=== PATIENT | male | born 1955 | race Caucasian/White ===

== ENCOUNTER → 2019-12-08 12:15 | Outpatient (BNVA) | payer MEDICAID, SELFPAY | PROVIDERS: Family Provider Family Medicine; PCP Family Medicine; Visit Provider Nurse Practitioner | DX: G89.29 Other chronic pain (principal); M54.12 Radiculopathy, cervical region; M47.812 Spondylosis without myelopathy or radiculopathy, cervical region; M51.9 Unspecified thoracic, thoracolumbar and lumbosacral intervertebral disc disorder; M47.816 Spondylosis without myelopathy or radiculopathy, lumbar region; M19.90 Unspecified osteoarthritis, unspecified site; F17.210 Nicotine dependence, cigarettes, uncomplicated; Z79.891 Long term (current) use of opiate analgesic | CPT/HCPCS: 99214 ==

== ENCOUNTER → 2020-02-12 12:48 | Outpatient (BNVA) | payer MEDICAID, SELFPAY | PROVIDERS: Family Provider Family Medicine; PCP Family Medicine; Visit Provider Nurse Practitioner | DX: G89.29 Other chronic pain (principal); M25.561 Pain in right knee; M25.562 Pain in left knee; M54.2 Cervicalgia; M54.5 Low back pain; F17.210 Nicotine dependence, cigarettes, uncomplicated; G47.00 Insomnia, unspecified; Z79.891 Long term (current) use of opiate analgesic; Z71.6 Tobacco abuse counseling | CPT/HCPCS: 99213 ==

== ENCOUNTER 2020-02-25 12:09 | Outpatient (CLI) | payer MEDICAID, SELFPAY ==
--- NOTE | 2020-02-25 12:19 | XR_ITS ---
WS: [id number] Chest 2 views, 02/25/2020 Clinical Data: Cough, copd, DYSPNEA Comparison: Portable chest, 06/09/2019. Findings: No nodules, masses or effusions are seen. The heart is normal. The pulmonary vascularity is not increased. No pneumonia or pneumothorax is seen. The aortic arch shows tortuosity. XR/XR chest 2V* [id number] Impression: Atherosclerosis.
== END 2020-02-25 12:10 | disposition home or self-care (01) ==
LOC: RADWPI 12:12
PROVIDERS: Family Provider Family Medicine; PCP Family Medicine; Visit Provider Nurse Practitioner Family
DX: J44.1 Chronic obstructive pulmonary disease with (acute) exacerbation (principal); I70.0 Atherosclerosis of aorta; R05 Cough; R06.00 Dyspnea, unspecified
CPT/HCPCS: 71046

== ENCOUNTER 2020-03-21 13:08 | Emergency (ER) | payer MEDICAID, SELFPAY | END 2020-03-21 13:34 | disposition left against medical advice (07) | LOC: ER 07-19 15:38 | PROVIDERS: Emergency Provider Emergency Medicine; PCP Family Medicine | DX: Z53.21 Procedure and treatment not carried out due to patient leaving prior to being seen by health care provider (principal) | CPT/HCPCS: 99281 ==

== ENCOUNTER 2020-03-21 13:18 | Outpatient (CLI) | payer MEDICAID, SELFPAY ==
--- NOTE | 2020-03-21 | USCV_ITS ---
Khoa Brewer Age: 64 Gender: M : 1955 Exam Date: 03/21/2020 13:35 Ordering Phys: Iwona Mcallister MD Technologist: Gilda Holly Exam Location: [facility] [place] Indication: DVT HISTORY: DVT. PROCEDURES: Venous duplex imaging was performed in only the right lower extremity. The following venous structures were evaluated: common femoral vein, profunda vein, proximal portion of the greater saphenous vein, superficial femoral vein, and the popliteal vein. In addition, the posterior tibial and peroneal trunk were evaluated. Serial compression, augmentation maneuvers, and spectral Doppler flow evaluation were performed. FINDINGS: Normal 2-D Doppler and augmentation and compressibility throughout the lower extremity venous structures. Additional imaging through the proximal calf veins also reveals no thrombus. Limited evaluation of the greater saphenous vein is patent with no thrombus.. CONCLUSIONS No evidence of right lower extremity DVT. Santo Evangelista MD (Electronically Signed) Final Date: 21 March 2020 15:37 Amended: 22 March 2020 11:26 C
== END 2020-03-21 13:19 | disposition home or self-care (01) ==
LOC: RAD 13:19
PROVIDERS: Family Provider Family Medicine; PCP Family Medicine; Visit Provider Family Medicine
DX: M79.604 Pain in right leg (principal)
CPT/HCPCS: 93971

== ENCOUNTER → 2020-06-01 13:26 | Outpatient (BNVA) | payer MEDICAID, SELFPAY | PROVIDERS: Family Provider Family Medicine; PCP Family Medicine; Visit Provider Anesthesiology | DX: G89.29 Other chronic pain (principal); M47.816 Spondylosis without myelopathy or radiculopathy, lumbar region; M51.9 Unspecified thoracic, thoracolumbar and lumbosacral intervertebral disc disorder; M47.812 Spondylosis without myelopathy or radiculopathy, cervical region; M54.12 Radiculopathy, cervical region; G47.00 Insomnia, unspecified; F17.210 Nicotine dependence, cigarettes, uncomplicated; Z79.891 Long term (current) use of opiate analgesic; Z71.6 Tobacco abuse counseling | CPT/HCPCS: 99214 ==

== ENCOUNTER → 2020-07-07 09:20 | Outpatient (BNVA) | payer MEDICAID, SELFPAY | PROVIDERS: Family Provider Family Medicine; PCP Family Medicine; Visit Provider Anesthesiology | DX: G89.29 Other chronic pain (principal); M25.561 Pain in right knee; M25.562 Pain in left knee; M19.90 Unspecified osteoarthritis, unspecified site; M54.12 Radiculopathy, cervical region; M51.9 Unspecified thoracic, thoracolumbar and lumbosacral intervertebral disc disorder; M47.816 Spondylosis without myelopathy or radiculopathy, lumbar region; M47.812 Spondylosis without myelopathy or radiculopathy, cervical region; F17.210 Nicotine dependence, cigarettes, uncomplicated; Z79.891 Long term (current) use of opiate analgesic; Z71.6 Tobacco abuse counseling | CPT/HCPCS: 99214 ==

== ENCOUNTER 2020-09-06 12:46 | Outpatient (CLI) | payer MEDICAID, SELFPAY ==
--- NOTE | 2020-09-06 13:30 | USCV_ITS ---
Khoa Brewer Age: 65 Gender: M : 1955 Exam Date: 09/06/2020 12:58 Ordering Phys: Brian Owens M.D ([email or web address]) Technologist: Exam Location: [facility] [place] Indication: CLAUDICATION RIGHT LEFT Brachial 100.00 mmHg Brachial 116.00 mmHg Pressure (mmHg) Waveform Pressure (mmHg) Waveform 130.00 ACCREDITED PHARMACY TECHNICIAN 128.00 130.00 DPA 152.00 1.12 Ankle/Brachial Index 1.31 93.00 Pre-Exercise Toe Pressure 117.00 0.80 Pre-Exercise Toe/Brachial Index 1.01 FINDINGS Resting ABIs bilaterally Resting TBIs bilaterally CONCLUSIONS No significant arterial obstruction, based on the above findings Dr Noe Neal MD [facility] (Electronically Signed) Final Date: 06 September 2020 20:49 S
== END 2020-09-06 12:47 | disposition home or self-care (01) ==
LOC: RAD 12:48
PROVIDERS: PCP Family Medicine; Visit Provider Internal Medicine
DX: I73.9 Peripheral vascular disease, unspecified (principal)
CPT/HCPCS: 93922

== ENCOUNTER → 2020-09-09 08:11 | Outpatient (BNVA) | payer MEDICAID, SELFPAY | PROVIDERS: Family Provider Family Medicine; PCP Family Medicine; Visit Provider Anesthesiology | DX: G89.29 Other chronic pain (principal); M47.816 Spondylosis without myelopathy or radiculopathy, lumbar region; M51.9 Unspecified thoracic, thoracolumbar and lumbosacral intervertebral disc disorder; M54.12 Radiculopathy, cervical region; M47.812 Spondylosis without myelopathy or radiculopathy, cervical region; F17.210 Nicotine dependence, cigarettes, uncomplicated; Z79.891 Long term (current) use of opiate analgesic | CPT/HCPCS: 99214 ==

== ENCOUNTER → 2020-11-09 12:31 | Outpatient (BNVA) | payer MEDICAID, SELFPAY | PROVIDERS: Family Provider Family Medicine; PCP Family Medicine; Visit Provider Anesthesiology | DX: G89.29 Other chronic pain (principal); M51.9 Unspecified thoracic, thoracolumbar and lumbosacral intervertebral disc disorder; M47.816 Spondylosis without myelopathy or radiculopathy, lumbar region; M54.12 Radiculopathy, cervical region; M47.812 Spondylosis without myelopathy or radiculopathy, cervical region; M19.90 Unspecified osteoarthritis, unspecified site; F17.210 Nicotine dependence, cigarettes, uncomplicated; Z79.891 Long term (current) use of opiate analgesic | CPT/HCPCS: 99214 ==

== ENCOUNTER 2020-12-09 09:32 | Outpatient (CLI) | payer MEDICAID, SELFPAY ==
--- NOTE | 2020-12-09 09:52 | XR_ITS ---
WS: [id number] Right knee, 3 views, 12/09/2020 Clinical Data: ACUTE RIGHT KNEE PAIN Comparison: Bilateral knees, 12/27/2014. Findings: There is lateral joint compartment narrowing with osteophytes of the lateral tibial plateau and later al femoral condyle. There is mild narrowing of the medial joint compartment. The posterior patella sh ows irregularity and posterior-superior spur. There are no fractures or dislocations. There is calcif ication in the wall of the superficial femoral artery and its distal branches. XR/XR knee RT 3V* [id number] Impression: Osteoarthritis of the right knee involving lateral joint compartment and datastage consultant ior patella with little change from 6 years ago.
== END 2020-12-09 09:33 | disposition home or self-care (01) ==
PROVIDERS: PCP Family Medicine; Visit Provider Family Medicine
DX: M17.11 Unilateral primary osteoarthritis, right knee (principal)
CPT/HCPCS: 73562

== ENCOUNTER → 2021-01-05 13:09 | Outpatient (BNVA) | payer MEDICAID, SELFPAY | PROVIDERS: PCP Family Medicine; Visit Provider Anesthesiology | DX: G89.29 Other chronic pain (principal); M47.816 Spondylosis without myelopathy or radiculopathy, lumbar region; M51.9 Unspecified thoracic, thoracolumbar and lumbosacral intervertebral disc disorder; M54.12 Radiculopathy, cervical region; M47.812 Spondylosis without myelopathy or radiculopathy, cervical region; G47.00 Insomnia, unspecified; F17.210 Nicotine dependence, cigarettes, uncomplicated; Z79.891 Long term (current) use of opiate analgesic | CPT/HCPCS: 99214 ==

== ENCOUNTER → 2021-03-07 12:44 | Outpatient (BNVA) | payer MEDICAID, SELFPAY | PROVIDERS: PCP Family Medicine; Visit Provider Anesthesiology | DX: G89.29 Other chronic pain (principal); M47.816 Spondylosis without myelopathy or radiculopathy, lumbar region; M51.9 Unspecified thoracic, thoracolumbar and lumbosacral intervertebral disc disorder; M54.12 Radiculopathy, cervical region; M47.812 Spondylosis without myelopathy or radiculopathy, cervical region; M19.90 Unspecified osteoarthritis, unspecified site; F17.210 Nicotine dependence, cigarettes, uncomplicated; Z79.891 Long term (current) use of opiate analgesic | CPT/HCPCS: 99214 ==

== ENCOUNTER 2021-03-08 03:20 | Emergency (ER) | payer MEDICAID, SELFPAY ==
[2021-03-08 03:21] VITALS: PULSE 107; RESP 22; TEMP 36.8; O2SAT 93; BMI 32.5
--- NOTE | 2021-03-08 03:25 | XR_ITS ---
WS: [id number] Portable AP upright chest, 03/08/2021 Clinical Data: cp Comparison: PA and lateral chest, 02/25/2020. Findings: No nodules, masses or effusions are seen. The heart is normal. The pulmonary vascularity is not increased. No pneumonia or pneumothorax is seen. The aortic arch and descending aorta show minim al tortuosity. The patient is rotated. There is osteoarthritis of the shoulder joints. XR/XR chest 1V portable [id number] Impression: Atherosclerosis.
--- NOTE | 2021-03-08 03:26 | ED_ITS ---
HPI - Chest Pain General: Chief Complaint: Chest Pain Stated Complaint: CP Time Seen by Provider: 03/08/21 03:24 Source: patient Mode of arrival: ambulatory Limitations: no limitations History of Present Illness: HPI narrative: 65-year-old male history of coronary disease had a stent placed roughly 4 to 5 years ago. States been having chest pain over the last 12 hours. States is been intermittent in nature nitro does seem to help. He states he had some diaphoresis with this pain. States that his pain currently is a 9 out of 10. Denies any worsening factors. Denies any shortness of breath at this time. Associated symptoms: Deny abdominal pain, dyspnea, fever(s), nausea or vomiting Review of Systems Const: Denies: fever(s), chills, body aches or change in appetite Eyes: Denies: blurry vision or eye discomfort ENMT: Denies: throat pain or dental pain Card: Reports: chest pain Resp: Denies: dyspnea GI: Denies: abdominal pain, nausea, vomiting or diarrhea : Denies: dysuria Musc: Denies: neck pain or back pain Skin/Breast: Denies: rash Neuro: Denies: headache(s) Psych: Denies: depression Aris/Lymph: Denies: easy bruising All/Imm: Denies: urticaria PFSH ED PFSH: Medical History CAD (coronary artery disease) Cervical radiculitis COPD (chronic obstructive pulmonary disease) Essential hypertension GERD (gastroesophageal reflux disease) History of myocardial infarction Hyperlipidemia Osteoarthritis hip and bilateral knees Sleep apnea 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 Surgical History H/O circumcision Presence of stent in left circumflex coronary artery S/P cholecystectomy S/P knee surgery right knee at age 21 Family History Mother Family history of premature coronary artery disease Sister Cancer Nasal Denies family history of Anesthesia complication Bleeding disorder Social History Smoking and tobacco status: current every day smoker cigarettes Packs smoked per day: 1.5 [ Other cigarette details: DOWN FROM 2.5 PPD ] Alcohol intake: current Alcohol intake frequency: few times a week Other details last alcohol use: 20 years ago Lives independently: Yes Marital status: Single Current occupational status: disabled History of recent travel: No Physical Exam Const: COMMON NORMALS: no acute distress, patient oriented x3 and healthy appearing HENMT: COMMON NORMALS: normocephalic and atraumatic HEAD & SCALP: normocephalic and atraumatic Eye: COMMON NORMALS: Equal, round and reactive pupils present and EOMs intact bilaterally PUPIL: Yes Equal, round and reactive pupils present Neck/C-Spine: COMMON NORMALS: full ROM and supple Chest: COMMONS NORMALS: normal inspection of the chest and normal palpation of entire chest wall Resp: COMMON NORMALS: normal respiratory effort, No retractions, No use of accessory muscles and clear to auscultation bilaterally AUSCULTATION: clear to auscultation bilaterally Cardio: COMMON NORMALS: regular rate, regular rhythm and No murmurs present (Cardio) RATE: regular rate RHYTHM: regular rhythm GI: COMMON NORMALS: Normal to inspection, nondistended, normoactive bowel sounds present, Soft to palpation, non-tender and no masses PALPATION: Yes S oft to palpation Extremity: COMMON NORMALS: normal to inspection and full ROM Neuro: COMMON NORMALS: patient oriented x3, moves all extremities and no focal motor deficits Psych: COMMON NORMALS: mental status grossly normal, Normal thought process present and cooperative THOUGHT PROCESS: Normal thought process present Skin: COMMON NORMALS: no rashes or lesions noted and no wounds GENERAL SKIN EXAM: no rashes or lesions noted Course Vital Signs: Vital signs: Vital Signs Temperature 98.2 F 03/08/21 03:21 Pulse Rate 96 03/08/21 05:19 Respiratory Rate 20 H 03/08/21 05:19 Blood Pressure 164/105 03/08/21 05:19 Pulse Oximetry 92 03/08/21 05:19 MDM - Chest Pain MDM Narrative: Medical decision making narrative: Ashley presents here with chest pain going on throughout the day. His initial troponin here is negative. He did have a mildly elevated D-dimer. Did try to perform a CT scan of his chest patient was unable to lay flat and he refused. Patient states that he feels much better and he would like to just go home. I try to talk him into being admitted or staying for 2-hour troponin. Patient still declined and states he is would just like to go home. I informed him that could not rule out a pulmonary embolism or acute coronary syndrome and he could get much worse and could even have a heart attack. Patient understands this and still decided to sign out AGAINST MEDICAL ADVICE. I informed if he has any worsening pain or changes mind he is return to ER immediately. He is follow-up his PCP is in 3 to 5 days. Lab Data: Labs: Lab Results 03/08/21 03/08/21 03/08/21 Range/Units 03:27 03:27 03:27 WBC 12.6 H (4.0-10.0) 10^3/ uL RBC 5.36 H (4.1-5.3) 10^6/u L Hgb 17.2 H (11.7-16.6) g/dL Hct 51.1 (42.0-52.0) % MCV 95.3 H (80-94) fL MCH 32.1 (28.0-34.0) pg MCHC 33.7 (30.0-36.0) g/dL RDW 13.2 (12.1-15.1) % Plt Count 241 (130-400) 10^3/c mm MPV 10.4 (7.4-10.4) fL Neut % (Auto) 75.0 % Lymph % (Auto) 16.2 % [place] % (Auto) 6.4 % Eos % (Auto) 1.1 % Baso % (Auto) 0.8 % Neut # (Auto) 9.46 H (1.8-7.7) 10^3/u L Lymph # (Auto) 2.0 (0.8-4.8) 10^3/u L [place] # (Auto) 0.8 (0.2-0.9) 10^3/u L Eos # (Auto) 0.1 (0.0-0.8) 10^3/u L Baso # (Auto) 0.1 (0.0-0.1) 10^3/u L Nucleated RBC % (a uto) 0 % Nucleated RBCs # 0.0 /100WBC PT 13.10 (12.1-14.9) SECO NDS INR 0.96 (0.8-1.2) D-Dimer 0.91 H (0-0.59) ug/mIFE U Sodium 140 (136-145) mmol/L Potassium 3.6 (3.5-5.1) mmol/L Chloride 97 L (98-107) mmol/L Carbon Dioxide 28 (22-29) mmol/L Anion Gap 18.6 (5-19) BUN 20 (8-23) mg/dL Creatinine 0.6 L (0.7-1.2) mg/dL GFR Calculation 135.6 H (90-130) mL/min Glucose 156 H (65-115) mg/dL Calculated Osmolal ity 296 H (285-295) mOsm/k g Calcium 9.5 (8.5-10.5) mg/dL Total Bilirubin 0.9 (0.15-1.2) mg/dL AST 25 (0-40) U/L ALT 24 (0-41) U/L Alkaline Phosphata se 138 H (40-130) IU/L Troponin T Baselin e (0-15) ng/L Total Protein 7.1 (6.6-8.7) g/dL Albumin 4.6 (3.5-5.2) g/dL Globulin 2.5 (1.3-4.6) g/dL 03/08/21 Range/Units 03:27 WBC (4.0-10.0) 10^3/ uL RBC (4.1-5.3) 10^6/u L Hgb (11.7-16.6) g/dL Hct (42.0-52.0) % MCV (80-94) fL MCH (28.0-34.0) pg MCHC (30.0-36.0) g/dL RDW (12.1-15.1) % Plt Count (130-400) 10^3/c mm MPV (7.4-10.4) fL Neut % (Auto) % Lymph % (Auto) % [place] % (Auto) % Eos % (Auto) % Baso % (Auto) % Neut # (Auto) (1.8-7.7) 10^3/u L Lymph # (Auto) (0.8-4.8) 10^3/u L [place] # (Auto) (0.2-0.9) 10^3/u L Eos # (Auto) (0.0-0.8) 10^3/u L Baso # (Auto) (0.0-0.1) 10^3/u L Nucleated RBC % (a uto) % Nucleated RBCs # /100WBC PT (12.1-14.9) SECO NDS INR (0.8-1.2) D-Dimer (0-0.59) ug/mIFE U Sodium (136-145) mmol/L Potassium (3.5-5.1) mmol/L Chloride (98-107) mmol/L Carbon Dioxide (22-29) mmol/L Anion Gap (5-19) BUN (8-23) mg/dL Creatinine (0.7-1.2) mg/dL GFR Calculation (90-130) mL/min Glucose (65-115) mg/dL Calculated Osmolal ity (285-295) mOsm/k g Calcium (8.5-10.5) mg/dL Total Bilirubin (0.15-1.2) mg/dL AST (0-40) U/L ALT (0-41) U/L Alkaline Phosphata se (40-130) IU/L Troponin T Baselin e 15 (0-15) ng/L Total Protein (6.6-8.7) g/dL Albumin (3.5-5.2) g/dL Globulin (1.3-4.6) g/dL Imaging Data^: CXR: Attestation: I personally reviewed and interpreted this imaging study as follows: My impression: no acute findings EKG Data^: EKG 1: Attestation: I personally reviewed and interpreted this EKG as follows: EKG interpretation date: 03/08/21 EKG interpretation time: 03:24 Interpretation: nsr hr [address] or t wave abnormalities pvc noted qrs 98 qtc 384 Discharge Plan Discharge Patient Disposition: Left Against Medical Advice Clinical Impression: Chest pain Qualifiers: Chest pain type: unspecified Qualified Code(s): R07.9 - Chest pain, unspecified Condition: Stable Prescriptions: No Action nitroglycerin [Nitrostat] 0.4 mg tablet, sublingual 0.4 mg SUBLINGUAL Q5M PRN (Reason: Angina) Qty: 25 RF: 4 lisinopril 10 mg tablet 10 mg PO ONCE Qty: 90 RF: 1 omeprazole 40 mg capsule,delayed release(DR/EC) 40 mg PO DAILY Qty: 90 RF: 3 trazodone 100 mg tablet 100 mg PO .QHS 30 Days Qty: 30 RF: 1 hydrocodone-acetaminophen 10-325 mg tablet 2 tab PO Q8H PRN (Reason: pain) 30 Days Qty: 180 RF: 0 hydrocodone-acetaminophen 10-325 mg tablet 2 tab PO Q8H PRN (Reason: pain) 30 Days Qty: 180 RF: 0 meloxicam [Mobic] 15 mg tablet 15 mg PO ONCE 30 Days Qty: 30 RF: 1 tizanidine 4 mg tablet 4 mg PO TID PRN (Reason: muscle spasticity) Qty: 90 RF: 1 tramadol 50 mg tablet 100 mg PO QID PRN (Reason: pain) 30 Days Qty: 240 RF: 1 clopidogrel 75 mg tablet 75 mg PO DAILY Qty: 90 RF: 3 Aspir-81 81 mg PO DAILY RF: 0 Referrals: Alfonso Jacques MD [Primary Care Provider] - Discharge Diet: Advance as tolerated Discharge Activity: Resume usual activity Patient Instructions: Chest Pain (ED) Coding Level of Care Code ED Photogrammetric Engineer for Pratibhag Fwd Exam Comprehensive
--- NOTE | 2021-03-08 03:30 | PC.NURSE ---
EKG taken and given to Dr. Wong
[2021-03-08] MEDS: aspirin 81 mg Chew Tablet 324 MG PO (03:32)
[2021-03-08] MEDS: ondansetron 2 mg/ML SDV 2 mL 4 MG IVP (03:32)
[2021-03-08 03:33] VITALS: RESP 22; O2SAT 94
[2021-03-08 03:33] LABS: Basophils # 0.1 10^3/uL (0.0-0.1); Basophils % 0.8 %; Eosinophils # 0.1 10^3/uL (0.0-0.8); Eosinophils % 1.1 %; Hematocrit 51.1 % (42.0-52.0); Hemoglobin 17.2 g/dL (11.7-16.6); Lymphocytes % 16.2 %; Mean Corpuscular HGB Conc 33.7 g/dL (30.0-36.0); Mean Corpuscular Hemoglobin 32.1 pg (28.0-34.0); Mean Corpuscular Volume 95.3 fL (80-94); Mean Platelet Volume 10.4 fL (7.4-10.4); Monocytes # 0.8 10^3/uL (0.2-0.9); Monocytes % 6.4 %; Neutrophils # 9.46 10^3/uL (1.8-7.7); Nucleated Red Blood Cells % 0 %; Platelet Count 241 10^3/cmm (130-400); Red Blood Count 5.36 10^6/uL (4.1-5.3); Red Cell Distribution Width 13.2 % (12.1-15.1); White Blood Count 12.6 10^3/uL (4.0-10.0)
[2021-03-08] MEDS: morphine 4 mg/mL SDV 1 mL IVP (03:33)
[2021-03-08 03:53] LABS: Alanine Aminotransferase 24 U/L (0-41); Albumin Level 4.6 g/dL (3.5-5.2); Alkaline Phosphatase 138 IU/L (40-130); Aspartate Amino Transferase 25 U/L (0-40); Blood Urea Nitrogen 20 mg/dL (8-23); Calcium 9.5 mg/dL (8.5-10.5); Carbon Dioxide 28 mmol/L (22-29); Chloride 97 mmol/L (98-107); Globulin 2.5 g/dL (1.3-4.6); Glomerular Filtration Rate 135.6 mL/min (90-130); Glucose 156 mg/dL (65-115); Osmolality Calculated 296 mOsm/kg (285-295); Sodium 140 mmol/L (136-145); Total Bilirubin 0.9 mg/dL (0.15-1.2); Total Protein 7.1 g/dL (6.6-8.7)
[2021-03-08 03:54] LABS: INR 0.96 (0.8-1.2)
[2021-03-08 03:55] LABS: Troponin(5th) Baseline 15 ng/L (0-15)
[2021-03-08 03:56] LABS: D Dimer 0.91 ug/mIFEU (0-0.59)
--- NOTE | 2021-03-08 03:59 | PC.NURSE ---
Patient placed on 2L oxygen via nasal cannula after morphine administration
[2021-03-08 04:00] VITALS: BP 162/101; PULSE 93; RESP 19; O2SAT 97
[2021-03-08 04:28] VITALS: BP 149/104; PULSE 94; RESP 17; O2SAT 95
[2021-03-08 04:32] LABS: Anion Gap 18.6 (5-19); Potassium 3.6 mmol/L (3.5-5.1)
[2021-03-08 04:37] VITALS: BP 113/89; PULSE 97; RESP 16; O2SAT 92
--- NOTE | 2021-03-08 05:06 | PC.NURSE ---
Patient refused CT multiple times, even after speaking to ED provider. Pt asked to AMA. Physician notified and spoke to patient before AMA paperwork was signed.
[2021-03-08 05:19] VITALS: BP 164/105; PULSE 96; RESP 20; O2SAT 92
== END 2021-03-08 05:19 | disposition left against medical advice (07) ==
PROVIDERS: Emergency Provider Emergency Medicine; PCP Family Medicine
DX: R07.9 Chest pain, unspecified (principal); Z53.21 Procedure and treatment not carried out due to patient leaving prior to being seen by health care provider; Z79.02 Long term (current) use of antithrombotics/antiplatelets; Z79.82 Long term (current) use of aspirin; I25.10 Atherosclerotic heart disease of native coronary artery without angina pectoris; J44.9 Chronic obstructive pulmonary disease, unspecified; I10 Essential (primary) hypertension; I25.2 Old myocardial infarction; E78.5 Hyperlipidemia, unspecified; F17.210 Nicotine dependence, cigarettes, uncomplicated
CPT/HCPCS: 71045; 80053; 84484; 85025; 85378; 85610; 96374; 96375; 99284; J2270; J2405

== ENCOUNTER → 2021-03-22 15:53 | Outpatient (BNVA) | payer MEDICAID, SELFPAY | PROVIDERS: PCP Family Medicine; Referring Provider Family Medicine; Visit Provider Specialist | DX: M17.0 Bilateral primary osteoarthritis of knee (principal); M76.891 Other specified enthesopathies of right lower limb, excluding foot | CPT/HCPCS: 73560; 73565 ==

== ENCOUNTER 2021-03-23 14:02 | Outpatient (CLI) | payer MEDICAID, SELFPAY ==
--- NOTE | 2021-03-23 14:30 | CT_ITS ---
WS: [id number] CT LUMBAR SPINE, noncontrast. HISTORY: M47.816 - Spondylosis without myelopathy or radiculopathy, lumbar region TECHNIQUE: Contiguous 2.5 mm axial imaging are performed. Sagittal and coronal reformats are submitte d and reviewed. All CT scans at [facility] use at least one of these dose optimization te chniques: automated exposure control; mA and/or kV adjustment per patient size (includes targeted exa ms where dose is matched to clinical indication); or iterative reconstruction. IV contrast: None DLP: 1910.9 mGycm COMPARISON: 12/09/2006 Normal lumbar alignment with no loss of disc space height or vertebral body height. Mild facet joint arthritis at L4-5 and L5-S1. No fracture. L1-2: Normal. L2-3: Moderate diffuse annular disc bulging encroaching upon the ventral thecal sac. There is mild ce ntral and subarticular recess narrowing. No focal disc protrusion. L3-4: Mild diffuse annular disc bulging with facet and ligamentum flavum arthritis. Mild encroachment upon the ventral thecal sac and subarticular recesses. L4-5: Diffuse annular disc bulging with a more focal protrusion in the LEFT foramen which is not cont acting the nerve root. Very mild narrowing of the lateral recesses, LEFT greater than RIGHT. L5-S1: Mild annular disc bulge and osteophytic ridging. Bilateral moderate facet joint arthritis. Inc reased degenerative air in the RIGHT facet joint. Bilateral SI joint arthritis. Incompletely visualized aortic aneurysm. Transverse diameter of 3.6 cm but the entire aorta is not vi sualized. There is additional mild aneurysmal dilatation of the proximal RIGHT common iliac artery up to 2.2 cm. These findings are new within the aorta since 2006. Nonobstructing calcification within e ach kidney. Moderate calcification at the origin of the renal arteries. CT/CT lumbar spine wo con* [id number] IMPRESSION: 1. Mild progression of degenerative disc disease and spondylosis throughout th e lumbar spine since 2006. No high-grade stenosis. 2. Moderate facet joint arthritis at L4-5 and L5-S1. 3. Mild central and subarticular recess stenosis at L2-3 and L3-4. 4. Small LEFT foraminal protrusion at L4-5 without contact on the nerve root. 5. Abdominal aortic aneurysm is incompletely visualized. Maximum diameter 3.6 cm but could be larger when the entire diameter is included. 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 Recommend follow -up CT angiogram abdominal aorta. Aneurysm is new since 2006.
== END 2021-03-23 14:03 | disposition home or self-care (01) ==
PROVIDERS: PCP Family Medicine; Visit Provider Anesthesiology
DX: M47.816 Spondylosis without myelopathy or radiculopathy, lumbar region (principal); I71.4 Abdominal aortic aneurysm, without rupture; M51.36 Other intervertebral disc degeneration, lumbar region; M47.817 Spondylosis without myelopathy or radiculopathy, lumbosacral region; M51.26 Other intervertebral disc displacement, lumbar region
CPT/HCPCS: 72131

== ENCOUNTER → 2021-04-25 14:38 | Outpatient (BNVA) | payer MEDICAID, SELFPAY | PROVIDERS: PCP Family Medicine; Visit Provider Orthopaedic Surgery | DX: M54.5 Low back pain (principal); G89.29 Other chronic pain; M85.88 Other specified disorders of bone density and structure, other site | CPT/HCPCS: 72110 ==

== ENCOUNTER → 2021-05-05 12:50 | Outpatient (BNVA) | payer MEDICAID, SELFPAY | PROVIDERS: PCP Family Medicine; Visit Provider Nurse Practitioner | DX: G89.29 Other chronic pain (principal); M47.816 Spondylosis without myelopathy or radiculopathy, lumbar region; M51.9 Unspecified thoracic, thoracolumbar and lumbosacral intervertebral disc disorder; M47.812 Spondylosis without myelopathy or radiculopathy, cervical region; M54.12 Radiculopathy, cervical region; M17.0 Bilateral primary osteoarthritis of knee; F17.210 Nicotine dependence, cigarettes, uncomplicated; Z79.891 Long term (current) use of opiate analgesic; Z71.6 Tobacco abuse counseling | CPT/HCPCS: 99214 ==

== ENCOUNTER → 2021-05-19 13:27 | Outpatient (BNVA) | payer MEDICAID, SELFPAY | PROVIDERS: PCP Family Medicine; Visit Provider Anesthesiology Pain Medicine | DX: M16.11 Unilateral primary osteoarthritis, right hip (principal); F17.210 Nicotine dependence, cigarettes, uncomplicated; Z79.891 Long term (current) use of opiate analgesic | CPT/HCPCS: 20610; 77002; J1030; J3490 ==

== ENCOUNTER → 2021-07-05 13:25 | Outpatient (BNVA) | payer MEDICAID, SELFPAY | PROVIDERS: PCP Family Medicine; Visit Provider Nurse Practitioner | DX: G89.29 Other chronic pain (principal); M47.816 Spondylosis without myelopathy or radiculopathy, lumbar region; M17.0 Bilateral primary osteoarthritis of knee; M16.0 Bilateral primary osteoarthritis of hip; M47.812 Spondylosis without myelopathy or radiculopathy, cervical region; F17.210 Nicotine dependence, cigarettes, uncomplicated; Z79.891 Long term (current) use of opiate analgesic | CPT/HCPCS: 99214 ==

== ENCOUNTER 2023-01-17 13:11 | Emergency (ER) | payer MEDICARE, MEDICAID, SELFPAY ==
[2023-01-17 13:30] VITALS: BP 112/68; PULSE 79; RESP 15; TEMP 36.4; O2SAT 97; BMI 28.5
--- NOTE | 2023-01-17 13:43 | XR_ITS ---
WS: [id number] Right femur and thigh, AP and lateral views, 01/17/2023 Clinical Data: pain Comparison: None. Findings: No fractures or dislocations are seen of the right femur. The fracture of the proximal right tibia an d the right fibular head are noted. There is severe osteoarthritis of the right hip. There is moderat e osteoarthritis of the right knee. Vascular calcification is noted. The soft tissues are normal. The soft tissues are normal. The visualized knee shows no abnormalities. XR/XR femur RT min 2V* [id number] Impression: 1. Negative for right femoral fracture. 2. Proximal right tibial and right fibular fractures.
--- NOTE | 2023-01-17 13:45 | XR_ITS ---
WS: [id number] Right ankle, 3 views, 01/17/2023 Clinical Data: pain Comparison: None. Findings: No fractures or dislocations are seen. The ankle mortise is normal. The talus and calcaneus are unrem arkable. No soft tissue swelling over the medial or lateral malleolus is seen. XR/XR ankle RT min 3V* [id number] Impression: Negative right ankle.
--- NOTE | 2023-01-17 13:45 | XR_ITS ---
WS: [id number] Right leg including the tibia and fibula, AP and lateral views, 01/17/2023 Clinical Data: pain Comparison: None. Findings: There is a comminuted fracture of the proximal right tibia without significant displacement. There is a fracture of the right fibular head. There is osteoarthritis of the right knee with medial and late ral joint compartment narrowing. There is vascular calcification. XR/XR tibia fibula RT 2V [id number] Impression: Fractures of the proximal right tibia and right fibula.
--- NOTE | 2023-01-17 13:45 | XR_ITS ---
WS: [id number] Right foot, 3 views, 01/17/2023 Clinical Data: pain Comparison: None. Findings: No fractures or dislocations are seen. No bone destruction or erosion is noted. The joint spaces and soft tissues are normal. XR/XR foot RT min 3V* [id number] Impression: Negative right foot.
--- NOTE | 2023-01-17 13:45 | XR_ITS ---
WS: [id number] Right hip, 2 views, 01/17/2023 Clinical Data: pain Comparison: None. Findings: No fractures or dislocations are seen. There is severe osteoarthritis of the right hip with sclerosis on both sides is joint and obliteration of the joint space. The right femoral head shows sclerosis b ut no fragmentation.. The soft tissues are not remarkable. The adjacent pelvis is normal. XR/XR hip RT 2-3V wo/w pel* [id number] Impression: 1. Severe osteoarthritis of the right hip. 2. Negative for right hip or adjacent right pelvic fracture.
--- NOTE | 2023-01-17 13:46 | ECG_ITS ---
[facility] Test Date: 2023-01-17 Pat Name: Khoa Brewer Department: Room: Gender: Male Community Health Worker: : 1955 Requested By: Rajan Larsen Order Number: [id number] Ezekiel MD: Noe Neal M.D. Measurements Intervals [place] Rate: 80 P: 31 [place]: 143 QRS: 43 QRSD: 96 T: 71 QT: 443 QTc: 511 Interpretive Statements SINUS RHYTHM NONSPECIFIC T-WAVE ABNORMALITY PROLONGED QT INTERVAL Compared to ECG 06/09/2019 18:47:51 T-wave abnormality now present Prolonged QT interval now present Electronically Signed On 01-17-2023 20:05:59 HOME HEALTH BILLING SPECIALIST by Noe Neal M.D. [id number]
--- NOTE | 2023-01-17 13:46 | XR_ITS ---
WS: [id number] Portable AP upright chest, 01/17/2023 Clinical Data: dyspnea/cough Comparison: Portable chest, 03/08/2021 Findings: No nodules, masses or effusions are seen. The heart is normal. The pulmonary vascularity is not increased. No pneumonia or pneumothorax is seen. There is a shift of the heart and mediastinum f rom left to right along with a rotation of the patient. Monitor leads are on the chest wall. There is osteoarthritis of the glenohumeral joints bilaterally. XR/XR chest 1V portable [id number] Impression: 1. Shift of the heart and mediastinum from left to right with rotation of the p atient. 2. Negative for acute cardiopulmonary disease.
--- NOTE | 2023-01-17 13:46 | ED_ITS ---
HPI - Fall General: Chief Complaint: Fall Stated Complaint: LEG PAIN/ SOB/ UNABLE TO STAND Time Seen by Provider: 01/17/23 13:27 Source: patient Mode of arrival: EMS History of Present Illness: 67-year-old female presents emergency room for right hip and leg pain. 4 days ago he got up to answer the door he felt unsteady and started to fall a height his fall broke with so he tried to help him he did not strike his head he did not lose consciousness he felt up loud painful popping sensation and since that time he has been on the couch at home unable to move. He has chronic right hip pain tells me he is supposed to have a hip arthroplasty but has not yet been scheduled this been a long ongoing thing for years post worsened now since the fall. He says his entire right leg hurts seems to localize it to the knee and ankle. Denies any other injury. MD complaint: fall Onset (ago): day(s) (4) Fall from: standing Fall witnessed: yes, by bystander Place fall occurred: home Loss of consciousness: None Prolonged down time: yes Location of injury - extremities: Right: knee, lower leg, ankle and foot Associated symptoms-after fall: Reports difficulty walking; Denies abdominal pain, chest pain, confusion, headache(s), hematuria, lightheadedness, neck pain, numbness, short of breath, vertigo or weakness Review of Systems Card: Denies: chest pain or lightheadedness GI: Denies: abdominal pain : Denies: hematuria Musc: Denies: neck pain Neuro: Reports: difficulty walking; Denies: headache(s), vertigo or confusion PFS ED PFSH: Medical History CAD (coronary artery disease) Cervical radiculitis COPD (chronic obstructive pulmonary disease) Essential hypertension GERD (gastroesophageal reflux disease) History of myocardial infarction Hyperlipidemia Osteoarthritis hip and bilateral knees Sleep apnea 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 Surgical History H/O circumcision Presence of stent in left circumflex coronary artery S/P cholecystectomy S/P knee surgery right knee at age 21 Family History Mother Family history of premature coronary artery disease Sister Cancer Nasal Denies family history of Anesthesia complication Bleeding disorder Social History Smoking and tobacco status: current every day smoker cigarettes Packs smoked per day: 1.5 [ Other cigarette details: DOWN FROM 2.5 PPD] Alcohol intake: current Alcohol intake frequency: few times a week Other details last alcohol use: 20 years ago Lives independently: Yes Marital status: Single Current occupational status: disabled History of recent travel: No Physical Exam Const: GENERAL APPEARANCE: cooperative and comfortable RAUL ENTATION/CONSCIOUSNESS: Yes awake, Yes oriented to person, Yes oriented to place and Yes oriented to time HENMT: COMMON NORMALS: normocephalic, atraumatic and hearing grossly normal bilaterally HEAD & SCALP: normocephalic and atraumatic Resp: COMMON NORMALS: normal respiratory effort, No retractions, No use of accessory muscles and clear to auscultation bilaterally AUSCULTATION: clear to auscultation bilaterally Cardio: COMMON NORMALS: regular rate, regular rhythm and No murmurs present (Cardio) RATE: regular rate RHYTHM: regular rhythm GI: COMMON NORMALS: Soft to palpation and No hepatosplenomegaly present AUSCULTATION: Yes normoactive bowel sounds PALPATION: Yes Soft to palpation, No Tenderness to palpation present (GI), No Guarding due to palpation present (GI) and Yes No hepatosplenomegaly present Extremity: COMMON NORMALS: normal to inspection, capillary refill normal, no clubbing, cyanosis or edema, no calf tenderness and no pedal edema Neuro: SENSORIUM/ORIENTATION: Yes oriented to person, Yes oriented to place and Yes oriented to time Skin: COMMON NORMALS: no rashes or lesions noted GENERAL SKIN EXAM: no rashes or lesions noted Course Vital Signs: Vital signs: Vital Signs Temperature 97.6 F 01/17/23 13:30 Pulse Rate 101 H 01/17/23 17:11 Respiratory Rate 16 01/17/23 17:11 Blood Pressure 111/73 01/17/23 17:11 Pulse Oximetry 97 01/17/23 13:30 Oxygen Delivery Me thod 01/17/23 13:30 MDM - Fall Medical Decision Making Proximal tibia fracture. Posterior splint applied refer to Ortho crutches nonweightbearing Medical Records I reviewed the patient's medical records. Lab Data I reviewed the patient's lab results. 01/17/23 14:16 01/17/23 14:16 Radiology Impressions Femur X-Ray 01/17/23 13:43 Impression: 1. Negative for right femoral fracture. 2. Proximal right tibial and right fibular fractures. Ankle X-Ray 01/17/23 13:45 Impression: Negative right ankle. Foot X-Ray 01/17/23 13:45 Impression: Negative right foot. Hip/Pelvis X-Ray 01/17/23 13:45 Impression: 1. Severe osteoarthritis of the right hip. 2. Negative for right hip or adjacent right pelvic fracture. Tibia/Fibula X-Ray 01/17/23 13:45 Impression: Fractures of the proximal right tibia and right fibula. Chest X-Ray 01/17/23 13:46 Impression: 1. Shift of the heart and mediastinum from left to right with rotation of the patient. 2. Negative for acute cardiopulmonary disease. Laboratory Results WBC 10.9 10^3/uL (4.0-10.0) H 01/17/23 14:16 RBC 3.78 10^6/uL (4.1-5.3) L 01/17/23 14:16 Hgb 12.4 g/dL (11.7-16.6) 01/17/23 14:16 Hct 38.8 % (42.0-52.0) L 01/17/23 14:16 MCV 102.6 fl (80-94) H 01/17/23 14:16 MCH 32.8 pg (28.0-34.0) 01/17/23 14:16 MCHC 32.0 g/dL (30.0-36.0) 01/17/23 14:16 RDW 15.6 % (12.1-15.1) H 01/17/23 14:16 Plt Count 285 10^3/cmm (130-400) 01/17/23 14:16 MPV 10.5 fL (7.4-10.4) H 01/17/23 14:16 Neut % (Auto) 80.1 % 01/17/23 14:16 Lymph % (Auto) 12.6 % 01/17/23 14:16 [place]field % (Auto) 4.6 % 01/17/23 14:16 Eos % (Auto) 1.4 % 01/17/23 14:16 Baso % (Auto) 0.4 % 01/17/23 14:16 Neut # (Auto) 8.77 10^3/uL (1.8-7.7) H 01/17/23 14:16 Lymph # (Auto) 1.4 10^3/uL (0.8-4.8) 01/17/23 14:16 Whitfield # (Auto) 0.5 10^3/uL (0.2-0.9) 01/17/23 14:16 Eos # (Auto) 0.2 10^3/uL (0.0-0.8) 01/17/23 14:16 Baso # (Auto) 0.0 10^3/uL (0.0-0.1) 01/17/23 14:16 Nucleated RBC % (auto) 0 % 01/17/23 14:16 Nucleated RBCs # 0.0 /100WBC 01/17/23 14:16 Sodium 136 mmol/L (136-145) 01/17/23 14:16 Potassium 3.4 mmol/L (3.5-5.1) L 01/17/23 14:16 Chloride 97 mmol/L (98-107) L 01/17/23 14:16 Carbon Dioxide 31 mmol/L (22-29) H 01/17/23 14:16 Anion Gap 11.4 (5-19) 01/17/23 14:16 BUN 19 mg/dL (8-23) 01/17/23 14:16 Creatinine 0.7 mg/dL (0.7-1.2) 01/17/23 14:16 GFR Calculation 112.8 mL/min (90-130) 01/17/23 14:16 Glucose 108 mg/dL (65-115) 01/17/23 14:16 Calculated Osmolality 285 mOsm/kg (285-295) 01/17/23 14:16 Calcium 8.5 mg/dL (8.5-10.5) 01/17/23 14:16 Total Bilirubin 0.3 mg/dL (0.15-1.2) 01/17/23 14:16 AST 14 U/L (0-40) 01/17/23 14:16 ALT 11 U/L (0-41) 01/17/23 14:16 Alkaline Phosphatase 101 U/L (40-130) 01/17/23 14:16 Creatine Kinase 76 U/L (39-308) 01/17/23 14:16 Total Protein 5.9 g/dL (6.6-8.7) L 01/17/23 14:16 Albumin 2.8 g/dL (3.5-5.2) L 01/17/23 14:16 Globulin 3.1 g/dL (1.3-4.6) 01/17/23 14:16 Discharge Plan Discharge Patient Disposition: Home Clinical Impression: Fracture of tibia and fibula Condition: Stable Prescriptions: New hydrocodone-acetaminophen 5-325 mg tablet 1 tab PO Q6H PRN (Reason: pain) Qty: 20 0RF No Action nitroglycerin [Nitrostat] 0.4 mg tablet, sublingual 0.4 mg SUBLINGUAL Q5M PRN (Reason: Angina) Qty: 25 4RF gabapentin 100 mg capsule 100 mg PO TID Qty: 90 0RF tizanidine 4 mg tablet 4 mg PO TID PRN (Reason: muscle spasticity) Qty: 90 0RF hydrocodone-acetaminophen 10-325 mg tablet 2 tab PO Q8H PRN (Reason: pain) 30 Days Qty: 180 0RF Rx Instructions: Fill on or after 07/07/21 omeprazole 40 mg capsule,delayed release(DR/EC) 40 mg PO DAILY Qty: 90 3RF clopidogrel 75 mg tablet 75 mg PO DAILY Qty: 90 3RF amlodipine 5 mg Tablet 5 mg PO DAILY lisinopril 40 mg tablet 40 mg PO DAILY Zoloft 50 mg Tablet 50 mg PO DAILY Crestor 20 mg Tablet 20 mg PO DAILY meloxicam 15 mg tablet 15 mg PO DAILY trazodone 100 mg tablet 100 mg PO BEDTIME tramadol 200 mg tablet extended release 24 hr 100 mg PO QID PRN (Reason: Pain) Discharge Orders: Discharge ED (Routine); Ordered 01/17/23 Ordered By: Rajan Fletcher Referrals: Alfonso Jacques MD [Primary Care Provider] - Discharge Diet: Usual diet Discharge Activity: Limit activity as instructed Patient Instructions: Opioid Safety, Pain Management Activity Restrictions/Additional Instructions: You were seen today for right leg pain you have a tibia and fibula fracture. A posterior splint was applied to the right leg you should use crutches and have no weightbearing at all on the right leg manager instrumentation will make arrangements for you to have follow-up with orthopedics. Coding Level of Care Code ED Machine Maintenance Servicer for Caitlin Black
[2023-01-17 14:22] LABS: Basophils % 0.4 %; Eosinophils # 0.2 10^3/uL (0.0-0.8); Eosinophils % 1.4 %; Hematocrit 38.8 % (42.0-52.0); Hemoglobin 12.4 g/dL (11.7-16.6); Lymphocytes # 1.4 10^3/uL (0.8-4.8); Lymphocytes % 12.6 %; Mean Corpuscular Hemoglobin 32.8 pg (28.0-34.0); Mean Corpuscular Volume 102.6 fl (80-94); Mean Platelet Volume 10.5 fL (7.4-10.4); Monocytes # 0.5 10^3/uL (0.2-0.9); Monocytes % 4.6 %; Neutrophils # 8.77 10^3/uL (1.8-7.7); Neutrophils % 80.1 %; Nucleated Red Blood Cells % 0 %; Platelet Count 285 10^3/cmm (130-400); Red Blood Count 3.78 10^6/uL (4.1-5.3); Red Cell Distribution Width 15.6 % (12.1-15.1); White Blood Count 10.9 10^3/uL (4.0-10.0)
--- NOTE | 2023-01-17 14:28 | PC.NURSE ---
pt arrives to ed post fall. pt c/o of pain in right leg when he moves. pt also c/o of shortness of breath. pt denies chest pain. pt states he does not wear o2 at home. pt was placed on 3L NC by EMS. pt states his shortness of breath is most likely due to his copd.
[2023-01-17 14:46] LABS: Alanine Aminotransferase 11 U/L (0-41); Albumin Level 2.8 g/dL (3.5-5.2); Alkaline Phosphatase 101 U/L (40-130); Anion Gap 11.4 (5-19); Aspartate Amino Transferase 14 U/L (0-40); Blood Urea Nitrogen 19 mg/dL (8-23); Calcium 8.5 mg/dL (8.5-10.5); Carbon Dioxide 31 mmol/L (22-29); Chloride 97 mmol/L (98-107); Creatine Phosphokinase 76 U/L (39-308); Creatinine Clr Calc Pharmacy 108.7666; Globulin 3.1 g/dL (1.3-4.6); Glomerular Filtration Rate 112.8 mL/min (90-130); Glucose 108 mg/dL (65-115); Osmolality Calculated 285 mOsm/kg (285-295); Potassium 3.4 mmol/L (3.5-5.1); Sodium 136 mmol/L (136-145); Total Bilirubin 0.3 mg/dL (0.15-1.2); Total Protein 5.9 g/dL (6.6-8.7)
[2023-01-17] MEDS: HYDROcodone-acetaminophen 10-325 mg Tablet 1 TAB PO (15:02)
--- NOTE | 2023-01-17 15:58 | PC.NURSE ---
DR. HULL GAVE VERBAL ORDER FOR LONG POSTERIOR ANKLE SPLINT TO RIGHT LEG. SPLINT PLACED.
--- NOTE | 2023-01-17 16:20 | PC.NURSE ---
PT ATTEMPTED TO USE CRUTCHES FOR AMBULATION. PT DOES NOT APPEAR TO BE STABLE ENOUGH ON HIS LEFT FOOT TO USE CRUTCHES EFFICIENTLY AND SAFELY. DR HULL NOTIFIED.
[2023-01-17 17:11] VITALS: BP 111/73; PULSE 101; RESP 16
--- NOTE | 2023-01-29 08:09 | DCPLANNER ---
Addendum entered by Radha Booker 02/13/23 08:01: Patient had a follow up appointment scheduled with ortho - patient did not attend appointment Addendum entered by Radha Booker 01/29/23 13:47: Patient has a follow up appointment scheduled for Saturday, January 30, 2023 at 1:30 with Onesimo Youssef at ortho. Clinic will call patient with appointment information. Original Note: senior consulting manager had message to schedule a follow up appointment for patient with ortho. senior consulting manager sent patients information to the front office staff at ortho. Patients information will be printed and reviewed. Clinic will call patient with appointment information.
== END 2023-01-17 17:13 | disposition home or self-care (01) ==
PROVIDERS: Emergency Provider Family Medicine; PCP Family Medicine
DX: S82.401A Unspecified fracture of shaft of right fibula, initial encounter for closed fracture (principal); W19.XXXA Unspecified fall, initial encounter
CPT/HCPCS: 29505; 36415; 71045; 73502; 73552; 73590; 73610; 73630; 80053; 82550; 85025; 93005; 99285

== ENCOUNTER 2023-02-26 13:49 | Outpatient (CLI) | payer MEDICARE, MEDICAID, SELFPAY ==
--- NOTE | 2023-02-26 14:08 | XR_ITS ---
WS: [id number] Exam: XR tibia fibula RT 2V [id number] Date/Time of Exam: 02/26/2023 2:08 PM Reason For Exam: fracture Comparison 01/17/2023. Comminuted nondisplaced fracture of the upper metadiaphysis of the tibia noted. No positional change. There is also an impacted fracture of the head and neck of the fibula unchanged in position. No othe r fractures of the lower leg are identified. Advanced DJD at the lateral joint compartment of the e e. XR/XR tibia fibula RT 2V [id number] IMPRESSION: 1. Fractures of the upper tibia and fibula remaining in satisfactory position f or healing. No positional change.
--- NOTE | 2023-02-26 14:08 | XR_ITS ---
WS: [id number] Exam: XR ankle RT min 3V* [id number] Date/Time of Exam: 02/26/2023 2:08 PM Reason For Exam: rt proximal tibia fx No ankle fracture or dislocation. The ankle mortise is well-maintained. Soft tissues are unremarkable . XR/XR ankle RT min 3V* [id number] IMPRESSION: 1. No fracture or other significant finding.
== END 2023-02-26 13:50 | disposition home or self-care (01) ==
PROVIDERS: PCP Family Medicine; Visit Provider Family Medicine
DX: S82.191A Other fracture of upper end of right tibia, initial encounter for closed fracture; S82.831A Other fracture of upper and lower end of right fibula, initial encounter for closed fracture; X58.XXXA Exposure to other specified factors, initial encounter
CPT/HCPCS: 73590; 73610

== ENCOUNTER → 2023-02-27 14:07 | Outpatient (BNVA) | payer MEDICARE, MEDICAID, SELFPAY | PROVIDERS: PCP Family Medicine; Visit Provider Nurse Practitioner Family | DX: S82.201A Unspecified fracture of shaft of right tibia, initial encounter for closed fracture (principal); S82.401A Unspecified fracture of shaft of right fibula, initial encounter for closed fracture; W19.XXXA Unspecified fall, initial encounter; M17.12 Unilateral primary osteoarthritis, left knee | CPT/HCPCS: 20610; 99214; J1100; J2795; J3301 ==

== ENCOUNTER 2023-02-27 15:41 | Outpatient (CLI) | payer MEDICARE, MEDICAID, SELFPAY | END 2023-02-27 15:42 | disposition home or self-care (01) | LOC: SPT 15:42 | PROVIDERS: PCP Family Medicine; Visit Provider Nurse Practitioner Family | DX: Z46.89 Encounter for fitting and adjustment of other specified devices (principal); S82.191D Other fracture of upper end of right tibia, subsequent encounter for closed fracture with routine healing; X58.XXXD Exposure to other specified factors, subsequent encounter | CPT/HCPCS: 97760; L1832 ==

== ENCOUNTER → 2023-03-27 14:17 | Outpatient (BNVA) | payer MEDICARE, MEDICAID, SELFPAY | PROVIDERS: PCP Family Medicine; Visit Provider Nurse Practitioner Family | DX: S82.251D Displaced comminuted fracture of shaft of right tibia, subsequent encounter for closed fracture with routine healing (principal); S82.831D Other fracture of upper and lower end of right fibula, subsequent encounter for closed fracture with routine healing; X58.XXXD Exposure to other specified factors, subsequent encounter | CPT/HCPCS: 73560; 99024; 99213 ==

== ENCOUNTER → 2023-04-30 13:02 | Outpatient (BNVA) | payer MEDICARE, MEDICAID, SELFPAY | PROVIDERS: PCP Family Medicine; Visit Provider Nurse Practitioner Family | DX: S82.201A Unspecified fracture of shaft of right tibia, initial encounter for closed fracture (principal); S82.401A Unspecified fracture of shaft of right fibula, initial encounter for closed fracture; X58.XXXA Exposure to other specified factors, initial encounter | CPT/HCPCS: 73560; 99214 ==

== ENCOUNTER → 2023-05-29 12:36 | Outpatient (BNVA) | payer MEDICARE, MEDICAID, SELFPAY | PROVIDERS: PCP Family Medicine; Visit Provider Nurse Practitioner Family | DX: S82.201A Unspecified fracture of shaft of right tibia, initial encounter for closed fracture (principal); S82.401A Unspecified fracture of shaft of right fibula, initial encounter for closed fracture; X58.XXXA Exposure to other specified factors, initial encounter | CPT/HCPCS: 73562; 97760; 99213; L1812 ==

== ENCOUNTER 2023-05-29 15:38 | Outpatient (CLI) | payer MEDICARE, MEDICAID, SELFPAY | END 2023-05-29 15:39 | disposition home or self-care (01) | LOC: SPT 15:39 | PROVIDERS: PCP Family Medicine; Visit Provider Nurse Practitioner Family | DX: S82.201A Unspecified fracture of shaft of right tibia, initial encounter for closed fracture (principal); S82.401A Unspecified fracture of shaft of right fibula, initial encounter for closed fracture; X58.XXXA Exposure to other specified factors, initial encounter | CPT/HCPCS: 97760; L1812 ==

== ENCOUNTER 2023-06-14 07:41 | Emergency (ER) | payer MEDICARE, MEDICAID, SELFPAY ==
[2023-06-14 07:44] VITALS: PULSE 112; RESP 18; TEMP 36.6; O2SAT 92
--- NOTE | 2023-06-14 08:31 | PC.NURSE ---
PT STATES HE ROOLED OUT OF BED LAST NIGHT AND HAS BEEN IN THE FLOOR SINCE. PT COMPLAINS OF RIGHT HIP PAIN STATING HE CANNOT WALK. PEDAL PULSE PALPABLE. PT HAS MOBILITY OF RIGHT LEG.
--- NOTE | 2023-06-14 08:34 | W.ED.FALL ---
HPI - Fall General: Chief Complaint: Fall Stated Complaint: fall, weakness Time Seen by Provider: 06/14/23 07:43 History of Present Illness: Patient presents to the ER via EMS with chief complaint of failure to bed last night. Patient states he laid in the floor until EMS arrived this morning he was incontinent of bowel and bladder. Patient denies any pain more than chronic at this time. States he broke his right leg several months ago and has been essentially bedbound since then. Patient has no concerns or complaints at this time. 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 Surgical History H/O circumcision Presence of stent in left circumflex coronary artery S/P cholecystectomy S/P knee surgery right knee at age 21 Family History Mother Family history of premature coronary artery disease Sister Cancer Nasal Denies family history of Anesthesia complication Bleeding disorder Social History Smoking and tobacco status: current every day smoker cigarettes Packs smoked per day: 1.5 [ Other cigarette details: DOWN FROM 2.5 PPD] Alcohol intake: current Alcohol intake frequency: few times a week Other details last alcohol use: 20 years ago Substance/Drug Use: never Lives independently: Yes Marital status: Single Current occupational status: disabled Physical Exam Const: COMMON NORMALS: no acute distress, average body habitus, patient oriented x3, no limitations, healthy appearing, alert and well nourished HENMT: COMMON NORMALS: normocephalic, atraumatic, hearing grossly normal bilaterally, external ears normal and moist oral mucous membranes HEAD & SCALP: normocephalic and atraumatic EXTERNAL EAR: Yes external ears normal Neck/C-Spine: COMMON NORMALS: full ROM, no lymphadenopathy, supple, no meningeal signs, no JVD and Thyroid normal THYROID: Thyroid normal Chest: COMMONS NORMALS: normal inspection of the chest and normal palpation of entire chest wall Resp: COMMON NORMALS: normal respiratory effort, No retractions, No use of accessory muscles and clear to auscultation bilaterally AUSCULTATION: clear to auscultation bilaterally Cardio: COMMON NORMALS: no JVD, regular rate, regular rhythm, S1 normal heart sound present, S2 normal heart sound present, No gallops present (Cardio), No clicks present (Cardio), No murmurs present (Cardio) and No rub (Cardio) RATE: regular rate RHYTHM: regular rhythm HEART SOUNDS: S1 normal heart sound present and S2 normal heart sound present GI: COMMON NORMALS: Normal to inspection, nondistended, normoactive bowel sounds present, Soft to palpation, non-tender, No hepatosplenomegaly present and no masses PALPATION: Yes Soft to palpation and Yes No hepatosplenomegaly present Neuro: COMMON NORMALS: patient oriented x3 SENSORIUM/ORIENTATION: Yes alert MENINGEAL SIGNS: Yes no meningeal signs Course Vital Signs: Vital signs: Vital Signs Temperature 97.9 F 06/14/23 07:44 Pulse Rate 112 H 06/14/23 07:44 Respiratory Rate 18 06/14/23 07:44 Pulse Oximetry 92 06/14/23 07:44 Oxygen Delivery Me thod Room Air 06/14/23 07:44 MDM - Fall Medical Decision Making Patient presents to the ER with complaints of fall out of bed last night. Patient has no complaints at this time. Patient has his normal chronic amount of pain. Patient denies any new complaints. Patient will be discharged home. Medical Records I reviewed the patient's medical records. Discharge Plan Discharge Patient Disposition: Home Clinical Impression: Fall Qualifiers: Encounter type: initial encounter Qualified Code(s): W19.XXXA - Unspecified fall, initial encounter Condition: Stable Prescriptions: No Action nitroglycerin [Nitrostat] 0.4 mg tablet, sublingual 0.4 mg SUBLINGUAL Q5M PRN (Reason: Angina) Qty: 25 4RF gabapentin 100 mg capsule 100 mg PO TID Qty: 90 0RF tizanidine 4 mg tablet 4 mg PO TID PRN (Reason: muscle spasticity) Qty: 90 0RF hydrocodone-acetaminophen 10-325 mg tablet 2 tab PO Q8H PRN (Reason: pain) 30 Days Qty: 180 0RF Rx Instructions: Fill on or after 07/07/21 omeprazole 40 mg capsule,delayed release(DR/EC) 40 mg PO DAILY Qty: 90 3RF (DME) Joseline See Rx Instructions .Route .MEDSUPPLY Qty: 1 0RF Rx Instructions: As directed (DME) Hinge Knee Brace See Rx Instructions .Route .MEDSUPPLY Qty: 1 0RF Rx Instructions: As directed clopidogrel 75 mg tablet 75 mg PO DAILY Qty: 90 3RF amlodipine 5 mg Tablet 5 mg PO DAILY lisinopril 40 mg tablet 40 mg PO DAILY Zoloft 50 mg Tablet 50 mg PO DAILY Crestor 20 mg Tablet 20 mg PO DAILY meloxicam 15 mg tablet 15 mg PO DAILY trazodone 100 mg tablet 100 mg PO BEDTIME tramadol 200 mg tablet extended release 24 hr 100 mg PO QID PRN (Reason: Pain) hydrocodone-acetaminophen 5-325 mg tablet 1 tab PO Q6H PRN (Reason: pain) Qty: 20 0RF Discharge Orders: Discharge ED (Routine); Ordered 06/14/23 Ordered By: Clovis Willis Referrals: Alfonso Jacques MD [Primary Care Provider] - 1 week Patient Instructions: Fall Prevention Activity Restrictions/Additional Instructions: Please follow-up with your family practice doctor in the next 7 days as needed. Please return to the ER as needed. Coding Level of Care Code ED Client Services Account Manager for Caitlin Black
[2023-06-14 08:52] VITALS: BP 109/84; PULSE 114; RESP 16; O2SAT 91
[2023-06-14 09:19] VITALS: BP 109/84; PULSE 114; RESP 18; O2SAT 91
--- NOTE | 2023-06-14 09:20 | PC.NURSE ---
PHYSICIAN NOTIFIED OF STAGE TWO PRESSURE ULCER ON PT RIGHT HIP. PHYSICIAN GAVE VERBAL ORDER TO CLEAN AND BANDAGE ULCER THEN CONTINUE WITH DC.
== END 2023-06-14 09:21 | disposition home or self-care (01) ==
PROVIDERS: Emergency Provider Emergency Medicine; PCP Family Medicine
DX: Z04.3 Encounter for examination and observation following other accident (principal); W06.XXXA Fall from bed, initial encounter; Z79.02 Long term (current) use of antithrombotics/antiplatelets; F17.210 Nicotine dependence, cigarettes, uncomplicated; I25.10 Atherosclerotic heart disease of native coronary artery without angina pectoris; J44.9 Chronic obstructive pulmonary disease, unspecified; I10 Essential (primary) hypertension; I25.2 Old myocardial infarction; E78.5 Hyperlipidemia, unspecified
CPT/HCPCS: 99281

== ENCOUNTER 2023-06-15 02:55 | Inpatient (IN) | payer MEDICARE, MEDICAID, SELFPAY ==
[2023-06-15] VITALS (48 sets, daily range): BP systolic 80–193; BP diastolic 60–130; PULSE 113–132; RESP 14–34; TEMP 36.5–37.1; O2SAT 88–97; BMI 29.8
--- NOTE | 2023-06-15 03:16 | XRR_ITS ---
PROCEDURE INFORMATION: Exam: XR Chest Exam date and time: 06/15/2023 3:24 AM Age: 67 years old Clinical indication: Chest pressure; Prior surgery; Surgery date: 6+ months; Surgery type: Gb. Angioplasty; Patient HX: C/O chest pain. Hypotensive. TECHNIQUE: Imaging protocol: Radiologic exam of the chest. Views: 1 view. COMPARISON: CR XR chest 1V portable [id number] 01/17/2023 2:15 PM FINDINGS: Lungs: Unremarkable. No consolidation. Pleural spaces: Unremarkable. No pleural effusion. No pneumothorax. Heart/Mediastinum: Unremarkable. No cardiomegaly. Bones/joints: Unremarkable. XR/XR chest 1V portable [id number] IMPRESSION: No acute findings.
--- NOTE | 2023-06-15 03:17 | ECG_ITS ---
[facility] Test Date: 2023-06-15 Pat Name: Khoa Brewer Department: Room: Gender: Male Financial Institution Treasurer: : 1955 Requested By: Werner Ruggiero Order Number: [id number] Ezekiel MD: Noe Neal M.D. Measurements Intervals [place] Rate: 130 P: 36 RI: 127 QRS: 55 QRSD: 91 T: 60 QT: 389 QTc: 572 Interpretive Statements SINUS TACHYCARDIA NONSPECIFIC T-WAVE ABNORMALITY ABNORMAL RHYTHM ECG Compared to ECG 01/17/2023 13:51:22 Sinus rhythm no longer present Prolonged QT interval no longer present T-wave abnormality still present Electronically Signed On 06-15-2023 12:55:36 CDT by Noe Neal M.D. [id number]
[2023-06-15 03:25] LABS: Basophils % 0.2 %; Eosinophils # 0.1 10^3/uL (0.0-0.8); Eosinophils % 0.5 %; Hematocrit 50.5 % (42.0-52.0); Hemoglobin 16.8 g/dL (11.7-16.6); Lymphocytes # 2.4 10^3/uL (0.8-4.8); Lymphocytes % 18.1 %; Mean Corpuscular HGB Conc 33.3 g/dL (30.0-36.0); Mean Corpuscular Hemoglobin 33.2 pg (28.0-34.0); Mean Corpuscular Volume 99.8 fl (80-94); Mean Platelet Volume 10.6 fL (7.4-10.4); Monocytes # 0.6 10^3/uL (0.2-0.9); Monocytes % 4.7 %; Nucleated Red Blood Cells % 0.2 %; Platelet Count 167 10^3/cmm (130-400); Red Blood Count 5.06 10^6/uL (4.1-5.3); Red Cell Distribution Width 16.5 % (12.1-15.1); White Blood Count 13.3 10^3/uL (4.0-10.0)
[2023-06-15 03:37] LABS: Troponin(5th) Baseline 25 ng/L (0-15)
--- NOTE | 2023-06-15 03:37 | CTR_ITS ---
PROCEDURE INFORMATION: Exam: CT Abdomen And Pelvis With Contrast Exam date and time: 06/15/2023 4:26 AM Age: 67 years old Clinical indication: Other: Diarrhea. Pressure wounds. Prior surgery; Surgery date: 6+ months; Surgery type: Gb; Patient HX: Diarrhea with hypotension. Sacral and RT hip pressure wounds. ; Additional info: Diarrhea, sacral wounds with cellulitis TECHNIQUE: Imaging protocol: Computed tomography of the abdomen and pelvis with contrast. Radiation optimization: All CT scans at this facility use at least one of these dose optimization techniques: automated exposure control; mA and/or kV adjustment per patient size (includes targeted exams where dose is matched to clinical indication); or iterative reconstruction. Contrast material: OMNI 350; Contrast volume: 100 ml; Contrast route: INTRAVENOUS (IV); REPORTING DATA: Count of CT and Cardiac NM exams in prior 12 months: This patient has received 0 known CTs and 0 known cardiac nuclear medicine studies in the 12 months prior to the current study. COMPARISON: CR XR hip RT 2-3V wo/w pel* [id number] 01/17/2023 2:28 PM RADIATION DOSE METRICS: Total DLP (mGy-cm): 1047.73 FINDINGS: Coronary arteries: Coronary artery vascular calcification Liver: Fatty infiltration of the liver Gallbladder and bile ducts: Normal. No calcified stones. No ductal dilation. Pancreas: Pancreatic edema and peripancreatic inflammatory change. Findings are suggestive of acute pancreatitis. Spleen: Normal. No splenomegaly. Adrenal glands: Normal. No mass. Kidneys and ureters: Nonobstructing calculi in both kidneys Stomach and bowel: Colonic diverticulosis without evidence diverticulitis Appendix: No evidence of appendicitis. Intraperitoneal space: Unremarkable. No free air. No significant fluid collection. Vasculature: Distal aortic aneurysm measuring 4.2 cm. Lymph nodes: Unremarkable. No enlarged lymph nodes. Urinary bladder: Unremarkable as visualized. Reproductive: Unremarkable as visualized. Bones/joints: Multilevel degenerative change of the lumbar spine. Degenerative change of both hip joints Soft tissues: Partially calcified nodular density in the left breast tissue. Correlation with the patient's clinical exam is recommended. CT/CT abdomen pelvis w con* [id number] IMPRESSION: 1. Pancreatic edema with peripancreatic inflammatory change. Findings are suggestive of acute pancreatitis. 2. Fatty infiltration of the liver 3. Distal abdominal aortic aneurysm measuring 4.2 cm in maximum dimension.
[2023-06-15 03:38] LABS: Albumin Level 3.3 g/dL (3.5-5.2); Alkaline Phosphatase 134 U/L (40-130); Blood Urea Nitrogen 16 mg/dL (8-23); Calcium 8.2 mg/dL (8.5-10.5); Carbon Dioxide 20 mmol/L (22-29); Chloride 99 mmol/L (98-107); Globulin 3.5 g/dL (1.3-4.6); Glomerular Filtration Rate 84.4 mL/min (90-130); Glucose 163 mg/dL (65-115); Osmolality Calculated 291 mOsm/kg (285-295); Sodium 138 mmol/L (136-145); Total Bilirubin 0.4 mg/dL (0.15-1.2); Total Protein 6.8 g/dL (6.6-8.7)
[2023-06-15] MEDS: sodium chloride 0.9% 1,000 ML 999 ML IV ×3 (03:42→05:14)
[2023-06-15 03:49] LABS: Anion Gap 22.3 (5-19)
[2023-06-15 03:50] LABS: Aspartate Amino Transferase 109 U/L (0-40); Potassium 3.3 mmol/L (3.5-5.1)
[2023-06-15 03:51] LABS: Alanine Aminotransferase 51 U/L (0-41)
[2023-06-15 03:52] LABS: C Reactive Protein 8.3 mg/L (0.0-4.9)
[2023-06-15 03:52] LABS: Lactic Sepsis W/Reflex 5.3 mmol/L (0.5-2.2)
[2023-06-15] MEDS: vancomycin 1,250 MG/250 ML PIGGYBACK 250 MG IV (04:07)
[2023-06-15] MEDS: ondansetron 2 mg/ML SDV 2 mL 4 MG IVP ×2 (04:09→20:40)
[2023-06-15] MEDS: midazolam 1 mg/mL INJ 2 mL 2 MG IVP (04:10)
--- NOTE | 2023-06-15 04:25 | W.ED.CHESTPA ---
HPI - Chest Pain General: Chief Complaint: Chest Pain Stated Complaint: CP Time Seen by Provider: 06/15/23 03:00 Source: patient and EMS History of Present Illness: 67-year-old male presenting for the second time in less than 24 hours. EMS was called, and arrived to find this gentleman in the floor again. He was covered in his own feces. He is mildly confused and therefore somewhat of a poor historian. He complains of leg pain, and chest discomfort. MD complaint: chest pain Pertinent past history: other Onset (ago): hour(s) Timing of current episode: constant and still present Prior episodes: Yes Onset: during rest Pain location: substernal Pain radiation: none Associated symptoms: Reports diaphoresis, dyspnea and nausea; Deny abdominal pain, fever(s), leg edema, syncope or vomiting Review of Systems Const: Reports: diaphoresis; Denies: fever(s) ENMT: Denies: throat pain Card: Reports: chest pain; Denies: syncope Resp: Reports: dyspnea GI: Reports: nausea; Denies: abdominal pain or vomiting PFSH ED PFSH: Medical History CAD (coronary artery disease) Cervical radiculitis COPD (chronic obstructive pulmonary disease) Essential hypertension GERD (gastroesophageal reflux disease) History of myocardial infarction Hyperlipidemia Osteoarthritis hip and bilateral knees Sleep apnea 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 Surgical History H/O circumcision Presence of stent in left circumflex coronary artery S/P cholecystectomy S/P knee surgery right knee at age 21 Family History Mother Family history of premature coronary artery disease Sister Cancer Nasal Denies family history of Anesthesia complication Bleeding disorder Social History Smoking and tobacco status: current every day smoker cigarettes Packs smoked per day: 1.5 [ Other cigarette details: DOWN FROM 2.5 PPD] Alcohol intake: current Alcohol intake frequency: few times a week Other details last alcohol use: 20 years ago Substance/Drug Use: never Lives independently: Yes Marital status: Single Current occupational status: disabled Physical Exam Const: GENERAL APPEARANCE: lethargic, ill appearing and frail appearing ORIENTATION/CONSCIOUSNESS: Yes lethargic HENMT: COMMON NORMALS: normocephalic, atraumatic and Normal external nose present HEAD & SCALP: normocephalic and atraumatic NOSE: Normal external nose present Eye: COMMON NORMALS: Equal, round and reactive pupils present and EOMs intact bilaterally PUPIL: Yes Equal, round and reactive pupils present Neck/C-Spine: GENERAL: Yes trachea midline Chest: CHEST: Yes Symmetrical chest wall rise Resp: EFFORT & INSPECTION: Yes tachypneic AUSCULTATION: rhonchi Cardio: COMMON NORMALS: regular rhythm RATE: tachycardic RHYTHM: regular rhythm GI: COMMON NORMALS: Soft to palpation and non-tender PALPATION: Yes Soft to palpation Neuro: PATRICIA COMA SCALE: document GCS findings Patricia coma scale eye opening: Spontaneous Patricia coma scale verbal response: Confused [place] coma scale motor response: Obey commands Patricia coma scale total score: 14 SENSORIUM/ORIENTATION: Yes lethargic Psych: ATTITUDE: Yes agitated Skin: NARRATIVE SKIN EXAM: There is cellulitis and ecchymosis to the perineum. There is a stage II pressure ulcer to right greater tronchanter. Stage I to perineum. Course Vital Signs: Vital signs: Vital Signs Temperature 97.9 F 06/15/23 02:55 Pulse Rate 113 H 06/15/23 06:16 Respiratory Rate 23 H 06/15/23 06:16 Blood Pressure 153/86 06/15/23 06:16 Pulse Oximetry 90 06/15/23 06:16 Oxygen Delivery Me thod Room Air 06/15/23 06:16 Oxygen Flow Rate 2 06/15/23 05:14 MDM - Chest Pain Medical Decision Making Tachycardic initially hypotensive male with a hx of chest pain and diarrhea. afebrile. initial pressures in 80s systolic. improved with fluid bolus. Afebrile. Lactic is elevated. has received fluids, abx. breathing treatements with nominal help. will complete 30mL /kg. abx infusing. CT of the belly pending. Lipase is minimally elevated. CT shows pancreatic edema with peripancreatic inflammatory change. No pseudocyst or mass. Biliary tree is normal in caliber. Bilirubin is normal. Hypotension has resolved at this point. The patient is still tachycardic. Due to previous hypotension, tachycardia, and elevated lactate in the setting of pancreatitis, the patient will go to the ICU for now. Hospitalist will see the patient. Lab Data 06/15/23 03:00 06/15/23 03:00 Radiology Impressions Chest X-Ray 06/15/23 03:16 IMPRESSION: No acute findings. Abdomen/Pelvis CT 06/15/23 03:37 IMPRESSION: 1. Pancreatic edema with peripancreatic inflammatory change. Findings are suggestive of acute pancreatitis. 2. Fatty infiltration of the liver 3. Distal abdominal aortic aneurysm measuring 4.2 cm in maximum dimension. Laboratory Results WBC 13.3 10^3/uL (4.0-10.0) H 06/15/23 03:00 RBC 5.06 10^6/uL (4.1-5.3) 06/15/23 03:00 Hgb 16.8 g/dL (11.7-16.6) H 06/15/23 03:00 Hct 50.5 % (42.0-52.0) 06/15/23 03:00 MCV 99.8 fl (80-94) H 06/15/23 03:00 MCH 33.2 pg (28.0-34.0) 06/15/23 03:00 MCHC 33.3 g/dL (30.0-36.0) 06/15/23 03:00 RDW 16.5 % (12.1-15.1) H 06/15/23 03:00 Plt Count 167 10^3/cmm (130-400) 06/15/23 03:00 MPV 10.6 fL (7.4-10.4) H 06/15/23 03:00 Neut % (Auto) 76.0 % 06/15/23 03:00 Lymph % (Auto) 18.1 % 06/15/23 03:00 [place] % (Auto) 4.7 % 06/15/23 03:00 Eos % (Auto) 0.5 % 06/15/23 03:00 Baso % (Auto) 0.2 % 06/15/23 03:00 Neut # (Auto) 10.10 10^3/uL (1.8-7.7) H 06/15/23 03:00 Lymph # (Auto) 2.4 10^3/uL (0.8-4.8) 06/15/23 03:00 [place] # (Auto) 0.6 10^3/uL (0.2-0.9) 06/15/23 03:00 Eos # (Auto) 0.1 10^3/uL (0.0-0.8) 06/15/23 03:00 Baso # (Auto) 0.0 10^3/uL (0.0-0.1) 06/15/23 03:00 Nucleated RBC % (auto) 0.2 % 06/15/23 03:00 Nucleated RBCs # 0.0 /100WBC 06/15/23 03:00 PT 13.60 SECONDS (12.1-14.9) 06/15/23 03:20 INR 1.01 (0.8-1.2) 06/15/23 03:20 Sodium 138 mmol/L (136-145) 06/15/23 03:00 Potassium 3.3 mmol/L (3.5-5.1) L 06/15/23 03:00 Chloride 99 mmol/L (98-107) 06/15/23 03:00 Carbon Dioxide 20 mmol/L (22-29) L 06/15/23 03:00 Anion Gap 22.3 (5-19) H 06/15/23 03:00 BUN 16 mg/dL (8-23) 06/15/23 03:00 Creatinine 0.9 mg/dL (0.7-1.2) 06/15/23 03:00 GFR Calculation 84.4 mL/min (90-130) L 06/15/23 03:00 Glucose 163 mg/dL (65-115) H 06/15/23 03:00 Calculated Osmolality 291 mOsm/kg (285-295) 06/15/23 03:00 Lactic Acid 5.3 mmol/L (0.5-2.2) H* 06/15/23 03:20 Calcium 8.2 mg/dL (8.5-10.5) L 06/15/23 03:00 Total Bilirubin 0.4 mg/dL (0.15-1.2) 06/15/23 03:00 AST 109 U/L (0-40) H 06/15/23 03:00 ALT 51 U/L (0-41) H 06/15/23 03:00 Alkaline Phosphatase 134 U/L (40-130) H 06/15/23 03:00 Creatine Kinase > 760 U/L (39-308) H* 06/15/23 03:20 Troponin T Baseline 25 ng/L (0-15) H 06/15/23 03:00 Troponin T 120 Minute 21.70 ng/L (0-15) H 06/15/23 04:48 Delta Troponin T -3.30 ABS# (0-10) L 06/15/23 04:48 C-Reactive Protein 8.3 mg/L (0.0-4.9) H 06/15/23 03:00 Total Protein 6.8 g/dL (6.6-8.7) 06/15/23 03:00 Albumin 3.3 g/dL (3.5-5.2) L 06/15/23 03:00 Globulin 3.5 g/dL (1.3-4.6) 06/15/23 03:00 Lipase 128 U/L (13-60) H 06/15/23 03:20 Urine Color Yellow (Yellow) 06/15/23 05:30 Urine Appearance Cloudy (CLEAR) A 06/15/23 05:30 Urine pH 5 (5-7) 06/15/23 05:30 Ur Specific [place] 1.015 (1.005-1.030) 06/15/23 05:30 Urine Protein 1+ (Negative) H 06/15/23 05:30 Urine Glucose (UA) Norm (Normal) 06/15/23 05:30 Urine Ketones Negative (Negative) 06/15/23 05:30 Urine Blood 3+ (Negative) H 06/15/23 05:30 Urine Nitrate Positive (Negative) H 06/15/23 05:30 Urine Bilirubin Neg (Negative) 06/15/23 05:30 Urine Urobilinogen Norm mg/dL (Negative) 06/15/23 05:30 Ur Leukocyte Esterase 2+ (Negative) H 06/15/23 05:30 Urine RBC 10-15 /hpf (0-2) H 06/15/23 05:30 Urine WBC 55-80 /hpf (0-5) H 06/15/23 05:30 Ur Squamous Epith Cells 0-4 /hpf (0-5) H 06/15/23 05:30 Amorphous Sediment Not Reportable 06/15/23 05:30 Urine Bacteria 2+ /hpf (NONE) H 06/15/23 05:30 Critical Care Time Critical Care Time: Critical Care Time: Yes Total Critical Care Time: 35 Attestation: This case had a high probability of a clinically significant, sudden, or life threatening deterioration of this patient's condition which required my full and direct attention, intervention and personal management. Discharge Plan Discharge Patient Disposition: Admitted As Inpatient Admit Provider: Dominique Montes Clinical Impression: Sepsis, Acute pancreatitis, Urinary tract infection Condition: Stable Coding Level of Care Code ED Physician Practice Manager for Caitlin Black
[2023-06-15] MEDS: iohexol 350 mg/mL 500 mL Btl (per mL) IV (04:38)
[2023-06-15 04:53] LABS: INR 1.01 (0.8-1.2)
[2023-06-15 04:56] LABS: Lipase 128 U/L (13-60)
[2023-06-15] MEDS: piperacillin-tazobactam 4.5 GM in sodium chloride 0.9% (plus) 50 ML IV (05:15)
--- NOTE | 2023-06-15 05:17 | ECG_ITS ---
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 Measurements Intervals [place] Rate: 107 P: 54 MS: 144 QRS: 61 QRSD: 94 T: 71 QT: 383 QTc: 511 Interpretive Statements SINUS TACHYCARDIA NONSPECIFIC T-WAVE ABNORMALITY ABNORMAL RHYTHM ECG Compared to ECG 06/15/2023 03:03:56 No significant changes Electronically Signed On 06-15-2023 12:58:27 CDT by Noe Neal M.D. [email or web address]
[2023-06-15 05:24] LABS: Reflex Lactate Order REFLEX LACTIC ORDERD
[2023-06-15 05:57] LABS: Add Urine Microscopic? YES; Bilirubin Urine Neg (Negative); Blood Urine 3+ (Negative); Glucose Urine UA Norm (Normal); Ketones Urine Negative (Negative); Leukocyte Esterase Urine 2+ (Negative); Nitrate Urine Positive (Negative); Protein Urine 1+ (Negative); Specific Gravity, Urine 1.015 (1.005-1.030); Urine Appearance Cloudy (CLEAR); Urine Color Yellow (Yellow); Urobilinogen Urine Norm (Negative); pH Urine 5 (5-7)
[2023-06-15 05:59] LABS: WBC Urine 55-80 /hpf (0-5)
[2023-06-15 06:00] LABS: Add Urine Culture? Yes; Bacteria Urine 2+ /hpf; Squamous Epithelial Cell Urine 0-4 /hpf (0-5)
[2023-06-15 06:34] LABS: Lactic Acid level (Lactate) 4.5 mmol/L (0.5-2.2)
[2023-06-15 06:49] LABS: Glucose Point of Care 184 mg/dL (70-110)
[2023-06-15 07:32] LABS: Triglycerides 751 mg/dL (0-150)
[2023-06-15] MEDS: lidocaine 1% 5 ML in potassium chloride premix 100 ML 52.5 ML IV (07:50)
[2023-06-15] MEDS: sodium chloride 0.9% 1,000 ML 125 ML IV (07:50)
[2023-06-15] MEDS: cefTRIAXone 1,000 MG in sodium chloride 0.9% (plus) 50 ML 100 MG IV (07:50)
[2023-06-15 07:51] LABS: LDL Cholesterol Direct 31 mg/dL (0-100)
[2023-06-15] MEDS: ketorolac 30 mg/mL INJ 15 MG IVP ×2 (08:35→22:38)
[2023-06-15] MEDS: pantoprazole 40 mg SDV IVP (08:35)
[2023-06-15] MEDS: sertraline 50 mg Tablet PO (08:36)
[2023-06-15] MEDS: clopidogrel 75 mg Tablet PO (08:36)
[2023-06-15] MEDS: atorvastatin 40 mg Tablet 80 MG PO (08:36)
--- NOTE | 2023-06-15 09:07 | ECG_ITS ---
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 Measurements Intervals [place] Rate: 120 P: 38 CT: 133 QRS: 45 QRSD: 93 T: 63 QT: 340 QTc: 481 Interpretive Statements SINUS TACHYCARDIA WITH FREQUENT VENTRICULAR PREMATURE COMPLEXES NONSPECIFIC T-WAVE ABNORMALITY ABNORMAL RHYTHM ECG Compared to ECG 06/15/2023 05:26:55 Ventricular premature complex(es) now present T-wave abnormality still present Electronically Signed On 06-15-2023 12:59:16 CDT by Noe Neal M.D. [id number]
--- NOTE | 2023-06-15 09:20 | PC.PHAR ---
PT STATES HE TAKES CARE OF HIS OWN MEDICATIONS-PT STATES HE TAKES GABAPENTIN 100MG TID RX FILLED 100MG PO Q6H 05/17/23 30D/S-PT STATES HE THINKS HE TAKES LISINOPRIL 40MG DAILY PT STATES IF [facility] FILLS IT THEN HE TAKES IT [facility] STATES THEY FILL EVERY MONTH FOR THE PT-PT STATES HE IS STILL TAKING VITAMIN D 01312 UNITS Q7D ON MONDAYS RX FILLED 03/25/23 56D/S-PT STATES HE FINISHED CLINDAMYCIN 300MG FILLED 05/29/23 10D/S-PT STATES HE IS OUT OF HIS NITRO-PT STATES HE HAS AN ALBUTEROL INHALER EXT DOESNT SHOW FILLED-PT STATES HE TAKES ULTRAM 50MG TABS TAKES 100MG BID RX FILLED 05/17/23 30D/S 50-100MG PO Q4-6H PRN MAX 8 TABS PER DAY-PT STATES HE DOESNT TAKE PLAVIX PREVIOUSLY ENTERED MED LIST HAD IT ENTERED SHOWS WRITTEN ON 10/31/2020 STATES NOT FILLED PLAVIX FOR THE PT-NOTES ARE MADE IN THE PHARMACY COMMENTS
[2023-06-15 09:40] LABS: Troponin 5 6HR 22.81 ng/L (0-15)
[2023-06-15 09:42] LABS: Troponin 5 6HR Delta -2.19 ng/L (0-12)
--- NOTE | 2023-06-15 09:42 | PM.HP ---
Providers/Chief Complaint Admitting Physician: Dominique Montes MD Primary Care Provider: Alfonso Jacques MD Chief Complaint: CP History of Present Illness 64-year-old man with past medical history of coronary artery disease with a stent placed in circumflex artery after and STEMI.? He has hypertension, dyslipidemia, and obesity.? He used to follow with Dr. Haas in the past.? He continues to smoke and smokes about 1-1/2 to 2 packs a day wheelchair-bound because of bed osteoarthritis was brought in by EMS when a second call was made within 24 hours to check on the patient, patient was found on the floor covered in feces with altered mental status. In the ER he has been diagnosed with hypotension, high lactic acid, afebrile, pancreatitis, triglyceridemia he was admitted to the ICU Patient is stating that he has been sober for quite some time but started drinking alcohol about 4 shots of hard liquor every day for last 1 year lives alone, wheelchair-bound, not able to move much on his own secondary to bad knee osteoarthritis, patient stating that for last 3 to 4 days he has been experiencing diarrhea abdominal pain and nausea, he was not able to get up from couch and called EMS twice He is also complaining of right sided chest pain which is reproducible, shortness of breath, fever Review of Systems Eyes: Denies: change in vision ENMT: Denies: throat pain Card: Reports: chest pain Resp: Denies: dyspnea GI: Reports: abdominal pain and diarrhea : Denies: flank pain Musc: Reports: back pain Skin/Breast: Reports: rash Psych: Reports: depression Medications/Allergies Home Medications Medication Instructions Recorded Confirmed Last Taken Type omeprazole 40 mg capsule,delayed 40 mg PO DAILY #90 caps 10/31/20 06/15/23 01/17/23 Rx release gabapentin 100 mg capsule 100 mg PO TID pain #90 caps 07/05/21 06/15/23 01/17/23 Rx tizanidine 4 mg tablet 4 mg PO TID PRN muscle spasticity 07/05/21 06/15/23 01/17/23 Rx #90 tabs amlodipine 5 mg tablet 5 mg PO QAM 01/17/23 06/15/23 01/17/23 History lisinopril 40 mg tablet 40 mg PO DAILY 01/17/23 06/15/23 01/17/23 History meloxicam 15 mg tablet 15 mg PO DAILY 01/17/23 06/15/23 01/17/23 History rosuvastatin 20 mg tablet (Crestor) 20 mg PO QAM 01/17/23 06/15/23 01/16/23 History sertraline 50 mg tablet (Zoloft) 50 mg PO DAILY 01/17/23 06/15/23 01/17/23 History trazodone 100 mg tablet 100 mg PO BEDTIME insomnia 01/17/23 06/15/23 01/16/23 History Mitchell #1 ea 02/27/23 06/15/23 Unknown Rx Hinge Knee Brace #1 ea 05/29/23 06/15/23 Unknown Rx albuterol sulfate 90 mcg/actuation 2 puff inhalation QID PRN 06/15/23 06/15/23 Unknown History aerosol inhaler Shortness Of Breath aspirin 81 mg tablet,delayed 81 mg PO QAM 06/15/23 06/15/23 Unknown History release ergocalciferol (vitamin D2) 1,250 See Rx Instructions .Route .COMPLEX 06/15/23 06/15/23 Unknown History mcg (50,000 unit) capsule hydrocodone 10 mg-acetaminophen 1 tab PO Q4H PRN Pain 06/15/23 06/15/23 Unknown History 325 mg tablet ketoconazole 2 % topical cream 1 applic topical BID PRN unknown 06/15/23 06/15/23 Unknown History nitroglycerin 0.4 mg sublingual 0.4 mg sublingual Q5M PRN Chest 06/15/23 06/15/23 Unknown History tablet (Nitrostat) Pain tramadol 50 mg tablet 100 mg PO BID 06/15/23 06/15/23 Unknown History Allergies Allergy/AdvReac Type Severity Reaction Status Date / Time No Known Allergies Allergy Verified 06/15/23 08:28 PFSH Acute PFSH: Medical History CAD (coronary artery disease) Cervical radiculitis COPD (chronic obstructive pulmonary disease) Essential hypertension GERD (gastroesophageal reflux disease) History of myocardial infarction Hyperlipidemia Osteoarthritis hip and bilateral knees Sleep apnea 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 Surgical History H/O circumcision Presence of stent in left circumflex coronary artery S/P cholecystectomy S/P knee surgery right knee at age 21 Family History Mother Family history of premature coronary artery disease Sister Cancer Nasal Denies family history of Anesthesia complication Bleeding disorder Social History Smoking and tobacco status: current every day smoker cigarettes Packs smoked per day: 1.5 [ Other cigarette details: DOWN FROM 2.5 PPD] Alcohol intake: current Alcohol intake frequency: few times a week Other details last alcohol use: 20 years ago Substance/Drug Use: never Lives independently: Yes Marital status: Single Current occupational status: disabled Vitals/I&O/Wt Last Vital Signs Temp 97.9 F 06/15/23 02:55 Pulse 113 H 06/15/23 06:30 Resp 23 H 06/15/23 06:16 BP 137/79 06/15/23 06:30 Pulse Ox 94 06/15/23 06:30 O2 Del Method Nasal Cannula 06/15/23 07:41 O2 Flow Rate 2 06/15/23 05:14 06/14/23 06/15/23 06/15/23 22:59 06:59 14:59 Intake Total 3300 / 3300 Output Total 175 / 175 Balance 3300 / 3300 -175 / -175 Weight last 48 hrs Weight 99.79 kg Physical Exam Narrative: Patient is on 2 L of oxygen Abdomen nontender Multiple present Hemodynamically stable Petechial rash on extremities, mild signs of fluid overload S1, S2, tachycardia Awake and alert GCS 15 Nonfocal neuro exam Data 06/15/23 03:00 06/15/23 03:00 Micro: Microbiology 06/15/23 03:49 Blood Culture - Preliminary Blood SPECIMEN COLLECTED 06/15/23 03:20 Blood Culture - Preliminary Blood SPECIMEN COLLECTED A&P Assessment and plan (1) Fall: Qualifiers: Encounter type: initial encounter Qualified Code(s): W19.XXXA - Unspecified fall, initial encounter (2) Acute pancreatitis: (3) Urinary tract infection: (4) Tobacco abuse: (5) Obesity: (6) Presence of stent in left circumflex coronary artery: (7) CAD (coronary artery disease): (8) Hypertriglyceridemia: Plan Hypertriglyceridemia include pancreatitis Patient is also drinking alcohol 4 shots of hard liquor every day Start thiamine, folic acid Start insulin, check triglyceride every 12 hours, check Accu-Cheks every hour start D5 half-normal saline We will stop insulin drip once triglyceride below 500 Patient will stay n.p.o. until then Metabolic imbalances related to alcohol abuse Patient endorsing history of withdrawal in the past Would use phenobarbital if needed Recheck BMP Lactic acidemia related to hypotension Multiple episodes of diarrhea Patient is not showing signs of sepsis UTI: Present Start antibiotics Bacteremia: Potassium repleted Patient has history of coronary disease continue antiplatelet therapy Sinus tachycardia likely related to dehydration Hypertension: Given hydralazine this morning start antihypertensive p.o. regimen Patient is wheelchair-bound at home Full code DVT prophylaxis on board N.p.o. except medications Attestations Medical Necessity Statement*: Continue medical management ICU Coding Level of Care Code Critical Care >/= 30 minutes Critical care time (in minutes): 40 The high probability of a clinically significant, sudden or life threatening deterioration, as referenced in this documentation, required my full and direct attention, intervention and personal management. The critical care time shown is in addition to time spent performing any reported separately billable procedures and includes the following: [x] Data and vital sign review and interpretation [x] Patient assessment, examination and intervention [x] Medication orders and management [x] Patient/Family updates as able [x] Care Coordination and Documentation. Diagnoses Fall W19.XXXA Encounter type: initial encounter Acute pancreatitis K85.90 Urinary tract infection N39.0 Tobacco abuse Z72.0 Obesity E66.9 Presence of stent in left circumflex coronary artery Z95.5 CAD (coronary artery disease) I25.10 Hypertriglyceridemia E78.1
[2023-06-15 10:06] LABS: Triglycerides 548 mg/dL (0-150)
[2023-06-15 10:27] LABS: LDL Cholesterol Direct 25 mg/dL (0-100)
[2023-06-15] MEDS: dextrose 5%-sod chloride 0.45% 1,000 ML 125 ML IV (11:08)
[2023-06-15] MEDS: piperacillin-tazobactam 3.375 GM in sodium chloride 0.9% (plus) 50 ML IV ×2 (11:09→18:27)
[2023-06-15] MEDS: insulin regular-human 250 UNIT in sodium chloride 0.9% 250 ML 7.07 UNIT IV (12:02)
[2023-06-15 12:05] LABS: Glucose Point of Care 184 mg/dL (70-110)
[2023-06-15 13:18] LABS: Glucose Point of Care 161 mg/dL (70-110)
[2023-06-15 14:36] LABS: Glucose Point of Care 115 mg/dL (70-110)
[2023-06-15] MEDS: hyDRALAzine 20 mg/mL INJ 1 mL 10 MG IVP ×2 (15:12→20:46)
[2023-06-15 15:18] LABS: Glucose Point of Care 87 mg/dL (70-110)
[2023-06-15] MEDS: dextrose 50% syringe 50 mL 25 ML IVP (15:28)
[2023-06-15] MEDS: PHENobarbital 32.4 mg Tablet 97.2 MG PO (15:28)
[2023-06-15] MEDS: dextrose 5%-ns 0.45% + KCl 40 1,000 ML 125 MEQ IV (15:29)
[2023-06-15 16:22] LABS: Alanine Aminotransferase 46 U/L (0-41); Albumin Level 3.1 g/dL (3.5-5.2); Alkaline Phosphatase 129 U/L (40-130); Anion Gap 15.7 (5-19); Aspartate Amino Transferase 103 U/L (0-40); Blood Urea Nitrogen 13 mg/dL (8-23); Calcium 7.9 mg/dL (8.5-10.5); Carbon Dioxide 20 mmol/L (22-29); Chloride 109 mmol/L (98-107); Creatinine Clr Calc Pharmacy 111.0976; Globulin 3.2 g/dL (1.3-4.6); Glomerular Filtration Rate 112.8 mL/min (90-130); Glucose 69 mg/dL (65-115); Magnesium 1.6 mg/dL (1.7-2.3); Osmolality Calculated 292 mOsm/kg (285-295); Sodium 142 mmol/L (136-145); Total Bilirubin 0.6 mg/dL (0.15-1.2); Total Protein 6.3 g/dL (6.6-8.7); Triglycerides 309 mg/dL (0-150)
[2023-06-15 16:24] LABS: Glucose Point of Care 127 mg/dL (70-110)
[2023-06-15 16:36] LABS: Potassium 2.7 mmol/L (3.5-5.1)
[2023-06-15 17:05] LABS: Glucose Point of Care 155 mg/dL (70-110)
[2023-06-15] MEDS: magnesium oxide 400 mg tablet PO (17:37)
[2023-06-15] MEDS: PHENobarbital 130 mg/mL SDV 1 mL 60 MG IV (17:42)
--- NOTE | 2023-06-15 19:53 | PC.NURSE ---
Shift summary: Pt has rested in bed throughout shift. He stated he usually does that at home, his brother helps him get up to W/C. He has remained in sinus tachycardia entire shift. His BP ran high, he received hydralazine once this shift for elevated BP. He remained on 3lpm/NC with no issues respiratory reeves this shift. He has had tremors for most of the day, they significantly improved after the second dose of phenobarbital. He has been complaining of abdominal pain later part of shift, juliann. after eating clear liquid diet. He has had multiple IV fluid changes today, at this time no fluids infusing. He was on insulin gtt for several hours this afternoon for his triglycerides. Level much improved this shift. His potassium level low again . He received replace this am after arrival to ICU and he is receiving another 40mEq this evening. He has only had 525ml urine output. This am he scratched at his penis frequently. He requested to keep the bedpan in bed with him so he could do it himself. He has had the bedpan under himself 4-5 times this shift and no BM noted yet. His skin is reddened and dry.
[2023-06-15] MEDS: morphine 4 mg/mL SDV 1 mL 2 MG IVP (20:51)
--- NOTE | 2023-06-15 20:53 | ECG_ITS ---
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 Measurements Intervals [place] Rate: 123 P: 48 AL: 132 QRS: 60 QRSD: 93 T: 74 QT: 337 QTc: 483 Interpretive Statements SINUS TACHYCARDIA WITH OCCASIONAL VENTRICULAR PREMATURE COMPLEXES NONSPECIFIC T-WAVE ABNORMALITY ABNORMAL RHYTHM ECG Compared to ECG 06/15/2023 09:07:21 No significant changes Electronically Signed On 06-16-2023 21:08:58 CDT by Noe Neal M.D. [id number]
[2023-06-15] MEDS: trazodone 100 mg Tablet PO (21:05)
[2023-06-15] MEDS: LORazepam 0.5 mg Tablet PO (22:37)
[2023-06-16] VITALS (23 sets, daily range): BP systolic 126–180; BP diastolic 75–100; PULSE 86–126; RESP 18–29; TEMP 36.4–37.6; O2SAT 90–98
--- NOTE | 2023-06-16 00:03 | PC.NURSE ---
PT CARE Assumed care of pt at this time.
[2023-06-16] MEDS: metoclopramide 5 mg/mL SDV 2 mL IVP ×2 (01:10→08:13)
[2023-06-16] MEDS: morphine 4 mg/mL SDV 1 mL 2 MG IVP ×3 (01:16→14:15)
[2023-06-16] MEDS: hyDRALAzine 20 mg/mL INJ 1 mL 10 MG IVP ×2 (02:06→17:41)
[2023-06-16] MEDS: piperacillin-tazobactam 3.375 GM in sodium chloride 0.9% (plus) 50 ML IV ×2 (03:32→10:13)
[2023-06-16 03:45] LABS: Basophils % 0.1 %; Eosinophils % 0.3 %; Hematocrit 43.4 % (42.0-52.0); Hemoglobin 14.2 g/dL (11.7-16.6); Lymphocytes % 9.7 %; Mean Corpuscular HGB Conc 32.7 g/dL (30.0-36.0); Mean Corpuscular Hemoglobin 33.4 pg (28.0-34.0); Mean Corpuscular Volume 102.1 fl (80-94); Mean Platelet Volume 11.8 fL (7.4-10.4); Monocytes # 0.3 10^3/uL (0.2-0.9); Monocytes % 3.1 %; Neutrophils # 8.81 10^3/uL (1.8-7.7); Nucleated Red Blood Cells % 0 %; Platelet Count 79 10^3/cmm (130-400); Red Blood Count 4.25 10^6/uL (4.1-5.3); Red Cell Distribution Width 16.3 % (12.1-15.1); White Blood Count 10.2 10^3/uL (4.0-10.0)
[2023-06-16 04:05] LABS: Alanine Aminotransferase 43 U/L (0-41); Alkaline Phosphatase 131 U/L (40-130); Blood Urea Nitrogen 10 mg/dL (8-23); Calcium 8.1 mg/dL (8.5-10.5); Carbon Dioxide 24 mmol/L (22-29); Chloride 104 mmol/L (98-107); Globulin 3.3 g/dL (1.3-4.6); Glomerular Filtration Rate 166.4 mL/min (90-130); Glucose 135 mg/dL (65-115); Osmolality Calculated 287 mOsm/kg (285-295); Sodium 138 mmol/L (136-145); Total Bilirubin 0.6 mg/dL (0.15-1.2); Total Protein 6.3 g/dL (6.6-8.7)
[2023-06-16 04:15] LABS: Anion Gap 13.3 (5-19); Aspartate Amino Transferase 93 U/L (0-40); Creatinine Clr Calc Pharmacy 111.0976; Potassium 3.3 mmol/L (3.5-5.1)
[2023-06-16 04:54] LABS: Lactate (Lactic Acid level) 0.7 mmol/L (0.5-2.2)
[2023-06-16] MEDS: aspirin 81 mg EC Tablet PO (05:40)
[2023-06-16] MEDS: amlodipine 5 mg Tablet PO (05:40)
[2023-06-16] MEDS: LORazepam 0.5 mg Tablet PO ×3 (06:54→20:11)
[2023-06-16] MEDS: ketorolac 30 mg/mL INJ 15 MG IVP (08:09)
[2023-06-16] MEDS: sertraline 50 mg Tablet PO (08:12)
[2023-06-16] MEDS: pantoprazole 40 mg SDV IVP (08:12)
[2023-06-16] MEDS: thiamine 100 mg Tablet PO (08:12)
[2023-06-16] MEDS: atorvastatin 40 mg Tablet 80 MG PO (08:12)
[2023-06-16] MEDS: folic acid 1 mg Tablet PO (08:12)
[2023-06-16] MEDS: lisinopril 20 mg Tablet 40 MG PO (08:12)
[2023-06-16] MEDS: magnesium oxide 400 mg tablet PO ×2 (08:12→17:41)
[2023-06-16] MEDS: metoprolol tartrate 25 mg Tablet PO ×2 (10:13→20:07)
[2023-06-16 11:02] LABS: D Dimer 1.72 ug/mIFEU (0-0.59)
--- NOTE | 2023-06-16 12:05 | PC.NURSE ---
pt spo2 desaturated down to 86% w/o oxygen and was sleeping when checked. RT administer oxygen back on at 2 L/min NC.
--- NOTE | 2023-06-16 14:27 | PM.PN ---
Subjective Subjective: Patient is endorsing feeling slightly better Advance diet to full liquids Persistent sinus tachycardia we will request CTA chest rule out PE Triglycerides 309 Afebrile Hemodynamically stable Currently on 2 L Urine culture showing gram-negative layne C. difficile negative Right-sided reproducible chest pain Vitals/I&O/Wt Last Vital Signs Temp 99.6 F 06/16/23 10:30 Pulse 86 06/16/23 12:04 Resp 26 H 06/16/23 14:15 BP 155/88 06/16/23 12:04 Pulse Ox 96 06/16/23 14:15 O2 Del Method Nasal Cannula 06/16/23 12:04 O2 Flow Rate 2 06/16/23 12:04 06/15/23 06/16/23 06/16/23 22:59 06:59 14:59 Intake Total 1813.630 / 1968.630 120 / 2088.630 1006 / 1006 Output Total 475 / 800 600 / 1400 980 / 980 Balance 1338.630 / 1168.630 -480 / 688.630 Weight last 48 hrs Weight 99.79 kg Physical Exam Narrative: Distended abdomen nontender S1, S2 Sinus tachycardia Hemodynamically stable Currently on 2 L Sacral ulcer present on admission stage I Tolerating diet Pleasant and cooperative Nonfocal neuro exam Data 06/16/23 03:05 06/16/23 03:05 Micro: Microbiology 06/15/23 05:30 Urine Culture - Preliminary Urine,Clean Catch Gram Negative Rods 06/15/23 22:10 C.difficile Toxin B Gene (PCR) - Final Stool Routine Collection 06/15/23 03:49 Blood Culture - Preliminary Blood NEGATIVE TO DATE 06/15/23 03:20 Blood Culture - Preliminary Blood NEGATIVE TO DATE A&P Assessment and plan (1) Hypertriglyceridemia: (2) Fall: Qualifiers: Encounter type: initial encounter Qualified Code(s): W19.XXXA - Unspecified fall, initial encounter (3) Acute pancreatitis: (4) Urinary tract infection: (5) Bilateral primary osteoarthritis of knee: (6) Obesity: (7) Osteoarthritis: (8) Sinus tachycardia: (9) Alcohol abuse: Plan Hypertriglyceridemia induced pancreatitis precipitated by alcohol Triglyceride below 500 Insulin drip discontinued Patient will need fenofibrate and cessation of alcohol Continue thiamine folic acid No active signs of alcohol withdrawal, he is on phenobarbital as needed Relapse from cessation of alcohol, patient has started drinking alcohol heavily since 2021 Patient does not want to go to any program for detoxification Lactic acidemia related to hypotension due to excessive diarrhea: C. difficile negative UTI: Continue antibiotics urine culture showing gram-negative layne Hypokalemia: Repleted Continue antiplatelet therapy for history of coronary disease no active left-sided chest pain, patient is endorsing reproducible right-sided chest pain, I will discontinue Plavix only continue aspirin Hypoxia and sinus tachycardia requested CTA chest to rule out PE requested venous Doppler, D-dimer is high Hypertension: Added multiple antihypertensive regimens yesterday Need optimization Sacral ulcer present on admission, would use OPTi foam Stage I ulcer Patient does get physical therapy once a week at home Full code Wheelchair-bound at home Patient does have in-home services Transfer out of ICU Possible discharge tomorrow Advancing diet today to full liquids Attestations Medical Necessity Statement*: Transfer out of ICU to [facility] Diagnoses Hypertriglyceridemia E78.1 Fall W19.XXXA Encounter type: initial encounter Acute pancreatitis K85.90 Urinary tract infection N39.0 Bilateral primary osteoarthritis of knee M17.0 Obesity E66.9 Osteoarthritis M19.90 Sinus tachycardia R00.0 Alcohol abuse F10.10
[2023-06-16] MEDS: mupirocin oint 22 gm 1 APPLIC TOPICAL ×2 (14:29→20:11)
--- NOTE | 2023-06-16 14:34 | USR_ITS ---
PROCEDURE INFORMATION: Exam: US Duplex Lower Extremity Veins, Bilateral Exam date and time: 06/16/2023 8:58 PM Age: 67 years old Clinical indication: Pain; Leg, lower; Left; Additional info: Hypoxia and swelling legs TECHNIQUE: Imaging protocol: Real-time duplex ultrasound of the bilateral extremities with 2-D hidalgo scale, color Doppler flow and spectral waveform analysis including responses to compression and other maneuvers (when performed) with image documentation. Complete exam focused on the lower extremity veins. COMPARISON: CT abdomen pelvis w con* [id number] 06/15/2023 4:26 AM FINDINGS: Right deep veins: Unremarkable. The common femoral, femoral, proximal profunda femoral and popliteal veins are patent without thrombus. Normal Doppler waveforms. Normal compressibility and/or augmentation response. Right superficial veins: Saphenofemoral junction is patent without thrombus. Left deep veins: Unremarkable. The common femoral, femoral, proximal profunda femoral and popliteal veins are patent without thrombus. Normal Doppler waveforms. Normal compressibility and/or augmentation response. Left superficial veins: Saphenofemoral junction is patent without thrombus. Soft tissues: Unremarkable. US/CV venous duplex [facility] [id number] IMPRESSION: No evidence of deep vein thrombosis.
--- NOTE | 2023-06-16 14:34 | CTR_ITS ---
PROCEDURE INFORMATION: Exam: CTA Chest With Contrast Exam date and time: 06/16/2023 4:00 PM Age: 67 years old Clinical indication: Shortness of breath; Additional info: Hypoxia and st TECHNIQUE: Imaging protocol: Computed tomographic angiography of the chest with contrast. Exam focused on the arteries. 3D rendering (Not supervised by radiologist): MIP and/or 3D reconstructed images were created by the technologist. Radiation optimization: All CT scans at this facility use at least one of these dose optimization techniques: automated exposure control; mA and/or kV adjustment per patient size (includes targeted exams where dose is matched to clinical indication); or iterative reconstruction. Contrast material: OMNI 350; Contrast volume: 75 ml; Contrast route: INTRAVENOUS (IV); REPORTING DATA: Count of CT and Cardiac NM exams in prior 12 months: This patient has received [address] and 0 known cardiac nuclear medicine studies in the 12 months prior to the current study. COMPARISON: CR (CHEST, ) 06/15/2023 3:24 AM RADIATION DOSE METRICS: Total DLP (mGy-cm): 508.74 FINDINGS: Pulmonary arteries: Normal. No pulmonary emboli. Aorta: Unremarkable. No aortic aneurysm. No aortic dissection. Lungs: See Pleural spaces finding. Pleural spaces: Small left pleural effusion with adjacent compressive atelectasis. Trace right pleural fluid. Heart: Unremarkable. No cardiomegaly. No pericardial effusion. Coronary arteries: Multivessel atherosclerotic disease which involves the coronary arteries. Lymph nodes: Unremarkable. No enlarged lymph nodes. Liver: There is a diffuse decrease in hepatic parenchymal density, consistent with fatty infiltration. Gallbladder and bile ducts: The gallbladder has been removed. Pancreas: There is peripancreatic fluid stranding consistent with acute pancreatitis. Bones/joints: There are degenerative changes in the visualized spine. Chronic right rib fracture sites. Soft tissues: There is peripherally calcified structure in the subcutaneous soft tissues of the anterior left hemithorax. CT/CT angio chest PE protcl [id number] IMPRESSION: 1. Findings consistent with acute pancreatitis. 2. Small left pleural effusion with adjacent compressive atelectasis. Trace right pleural fluid. 3. Fatty infiltration of the liver. 4. Multivessel atherosclerotic disease which involves the coronary arteries.
[2023-06-16] MEDS: iohexol 350 mg/mL 500 mL Btl (per mL) IV (16:08)
--- NOTE | 2023-06-16 16:27 | PC.NURSE ---
attempted to give hand off report to med surg [phone], nurse is not ready yet. will call me back.
--- NOTE | 2023-06-16 17:00 | PC.NURSE ---
report given to in M/S
[2023-06-16] MEDS: enoxaparin 40 mg/0.4 mL Syringe SUBCUT (17:41)
[2023-06-16] MEDS: potassium chloride ER 20 mEq Tablet 40 MEQ PO (17:41)
[2023-06-16] MEDS: trazodone 100 mg Tablet PO (20:07)
[2023-06-17] VITALS (13 sets, daily range): BP systolic 129–159; BP diastolic 78–84; PULSE 91–119; RESP 16–21; TEMP 36.4–37.1; O2SAT 89–95
[2023-06-17] MEDS: morphine 4 mg/mL SDV 1 mL 2 MG IVP ×4 (01:49→23:37)
[2023-06-17] MEDS: ondansetron 2 mg/ML SDV 2 mL 4 MG IVP ×2 (01:50→19:26)
[2023-06-17 05:22] LABS: Basophils % 0.1 %; Eosinophils # 0.1 10^3/uL (0.0-0.8); Eosinophils % 1.1 %; Hematocrit 39.7 % (42.0-52.0); Hemoglobin 13.2 g/dL (11.7-16.6); Lymphocytes % 11.2 %; Mean Corpuscular HGB Conc 33.2 g/dL (30.0-36.0); Mean Corpuscular Hemoglobin 33.4 pg (28.0-34.0); Mean Corpuscular Volume 100.5 fl (80-94); Mean Platelet Volume 12.7 fL (7.4-10.4); Monocytes # 0.2 10^3/uL (0.2-0.9); Monocytes % 2.5 %; Neutrophils # 7.15 10^3/uL (1.8-7.7); Neutrophils % 84.3 %; Nucleated Red Blood Cells % 0 %; Platelet Count 70 10^3/cmm (130-400); Red Blood Count 3.95 10^6/uL (4.1-5.3); Red Cell Distribution Width 15.5 % (12.1-15.1); White Blood Count 8.5 10^3/uL (4.0-10.0)
[2023-06-17 06:10] LABS: Alanine Aminotransferase 32 U/L (0-41); Albumin Level 2.8 g/dL (3.5-5.2); Alkaline Phosphatase 118 U/L (40-130); Aspartate Amino Transferase 45 U/L (0-40); Blood Urea Nitrogen 6 mg/dL (8-23); Calcium 8.4 mg/dL (8.5-10.5); Carbon Dioxide 26 mmol/L (22-29); Chloride 98 mmol/L (98-107); Globulin 3.2 g/dL (1.3-4.6); Glomerular Filtration Rate 215.2 mL/min (90-130); Glucose 140 mg/dL (65-115); Osmolality Calculated 282 mOsm/kg (285-295); Sodium 136 mmol/L (136-145); Total Bilirubin 0.5 mg/dL (0.15-1.2)
[2023-06-17] MEDS: amlodipine 5 mg Tablet PO (06:18)
[2023-06-17] MEDS: aspirin 81 mg EC Tablet PO (06:18)
[2023-06-17] MEDS: metoclopramide 5 mg/mL SDV 2 mL IVP ×3 (06:33→23:36)
[2023-06-17 06:37] LABS: Creatinine Clr Calc Pharmacy 111.0976
[2023-06-17 06:45] LABS: Anion Gap 14.9 (5-19); Potassium 2.9 mmol/L (3.5-5.1)
[2023-06-17] MEDS: ketorolac 30 mg/mL INJ 15 MG IVP ×2 (07:03→15:36)
[2023-06-17] MEDS: atorvastatin 40 mg Tablet 80 MG PO (08:48)
[2023-06-17] MEDS: pantoprazole 40 mg SDV IVP (08:48)
[2023-06-17] MEDS: folic acid 1 mg Tablet PO (08:49)
[2023-06-17] MEDS: mupirocin oint 22 gm 1 APPLIC TOPICAL ×3 (08:49→20:58)
[2023-06-17] MEDS: sertraline 50 mg Tablet PO (08:49)
[2023-06-17] MEDS: magnesium oxide 400 mg tablet PO ×2 (08:49→16:48)
[2023-06-17] MEDS: lisinopril 20 mg Tablet 40 MG PO (08:49)
[2023-06-17] MEDS: fenofibrate 145 mg Tablet PO (08:49)
[2023-06-17] MEDS: thiamine 100 mg Tablet PO (08:49)
[2023-06-17] MEDS: metoprolol tartrate 25 mg Tablet PO ×2 (08:56→20:58)
[2023-06-17] MEDS: piperacillin-tazobactam 3.375 GM in sodium chloride 0.9% (plus) 50 ML IV ×2 (08:56→17:21)
--- NOTE | 2023-06-17 10:42 | PM.PN ---
Subjective Subjective: He states he is doing okay. Denies any new symptoms. Just getting visited by his brother and [id number]. Vitals/I&O/Wt Last Vital Signs Temp 98.2 F 06/17/23 08:00 Pulse 106 H 06/17/23 08:00 Resp 16 06/17/23 08:00 BP 137/80 06/17/23 08:00 Pulse Ox 91 06/17/23 08:00 O2 Del Method Nasal Cannula 06/17/23 03:58 O2 Flow Rate 2 06/16/23 16:00 06/16/23 06/17/23 06/17/23 22:59 06:59 14:59 Intake Total 890 / 1896 720 / 2616 320 / 320 Output Total 1150 / 2130 1300 / 3430 175 / 175 Balance -260 / -234 -580 / -814 145 / 145 Physical Exam Narrative: Family at bedside. Const: COMMON NORMALS: patient oriented x3 and alert GENERAL APPEARANCE: cooperative NUTRITIONAL APPEARANCE: overweight ORIENTATION/CONSCIOUSNESS: Yes awake OTHER: Is able to tell me where he is, the year and the month. HENMT: COMMON NORMALS: oropharynx normal Neck/C-Spine: COMMON NORMALS: no JVD Resp: COMMON NORMALS: normal respiratory effort and clear to auscultation bilaterally AUSCULTATION: clear to auscultation bilaterally Cardio: COMMON NORMALS: no JVD, regular rhythm, S1 normal heart sound present, S2 normal heart sound present and No murmurs present (Cardio) RHYTHM: regular rhythm HEART SOUNDS: S1 normal heart sound present and S2 normal heart sound present GI: COMMON NORMALS: Normal to inspection, nondistended, normoactive bowel sounds present, Soft to palpation and non-tender PALPATION: Yes Soft to palpation Neuro: COMMON NORMALS: patient oriented x3 and moves all extremities SENSORIUM/ORIENTATION: Yes alert Skin: OTHER: Old right hip ulcer stage II appearance covered with foam dressing Data 06/17/23 04:55 06/17/23 04:55 Micro: Microbiology 06/15/23 22:10 Enteric Pathogens (PCR) - Final Stool Routine Collection C.difficile Toxin B Gene (PCR) - Final 06/15/23 05:30 Urine Culture - Preliminary Urine,Clean Catch Gram Negative Rods A&P Assessment and plan (1) Hypertriglyceridemia: (2) Fall: Qualifiers: Encounter type: initial encounter Qualified Code(s): W19.XXXA - Unspecified fall, initial encounter (3) Acute pancreatitis: (4) Urinary tract infection: (5) Bilateral primary osteoarthritis of knee: (6) Obesity: (7) Osteoarthritis: (8) Sinus tachycardia: (9) Alcohol abuse: Plan Possible acute encephalopathy: Possible acute metabolic encephalopathy associated with pancreatitis, UTI. Nursing staff reporting possibly some on and off mild confusion. Unclear if possibly related to his pancreatitis. He is oriented x3 currently. Will reassess lipase, triglycerides. He otherwise is afebrile, without leukocytosis or suggestion of cyst or undiagnosed acute infection. Continue treatment of UTI. Continue thiamine, folic acid, multivitamin supplementation. We will check TSH. B12. Does not appear to be in alcohol withdrawal at this time. Functional decline: Per discussion with his family, brother states concerned that he has not been able to manage things at home. He does have home health coming in several times a week. PT comes in with home health. However, he is otherwise spending most of the day on the couch. He has not been able to get up and get around. He tells me he has been using a bedpan. Pressure sore noted on sacrum, right hip. Obtaining physical therapy evaluation. Discussed consideration may be given to rehabilitation, he reportedly has declined going to prison facility. We will revisit with him. 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 Continue fenofibrate and encourage cessation of alcohol Continue thiamine folic acid he is on phenobarbital as needed Relapse from cessation of alcohol, patient has started drinking alcohol heavily since 2021 Patient does not want to go to any program for detoxification Lactic acidemia related to hypotension due to excessive diarrhea: C. difficile negative UTI: Continue Zosyn. Urine culture with gram-negative layne. Follow-up. Hypokalemia: Repleted Continue antiplatelet therapy for history of coronary disease no active left-sided chest pain, Reproducible right-sided chest pain, continues on aspirin. Plavix were held. Hypoxia and sinus tachycardia no PE on CTA chest to rule out PE, no DVT on venous Doppler, D-dimer is high Hypertension: Added multiple antihypertensive regimens yesterday Need optimization Sacral ulcer present on admission, would use OPTi foam Stage I ulcer Also old stage II right hip pressure ulcer: Continue foam dressing. Discussed with him and encouraged repositioning once every 1-2 hours. Patient does get physical therapy once a week at home Full code Wheelchair-bound at home Patient does have in-home services Discussed with case management, PT. Attestations Medical Necessity Statement*: Continue admission for assessment of mental possible acute encephalopathy, UTI, pancreatitis, monitor for alcohol withdrawal, post discharge planning and arrangements. Diagnoses Hypertriglyceridemia E78.1 Fall W19.XXXA Encounter type: initial encounter Acute pancreatitis K85.90 Urinary tract infection N39.0 Bilateral primary osteoarthritis of knee M17.0 Obesity E66.9 Osteoarthritis M19.90 Sinus tachycardia R00.0 Alcohol abuse F10.10
[2023-06-17 12:03] LABS: Thyroid Stimulating Hormone 3.67 uIU/mL (0.27-4.20)
[2023-06-17] MEDS: enoxaparin 40 mg/0.4 mL Syringe SUBCUT (16:47)
[2023-06-17] MEDS: trazodone 100 mg Tablet PO (20:58)
[2023-06-18] VITALS (13 sets, daily range): BP systolic 125–172; BP diastolic 74–91; PULSE 75–95; RESP 17–18; TEMP 36.6–36.9; O2SAT 95–97
[2023-06-18] MEDS: piperacillin-tazobactam 3.375 GM in sodium chloride 0.9% (plus) 50 ML IV ×2 (01:03→10:27)
[2023-06-18 06:15] LABS: Basophils % 0.3 %; Eosinophils # 0.2 10^3/uL (0.0-0.8); Eosinophils % 3.3 %; Hematocrit 37.6 % (42.0-52.0); Hemoglobin 12.4 g/dL (11.7-16.6); Lymphocytes # 1.1 10^3/uL (0.8-4.8); Lymphocytes % 14.9 %; Mean Corpuscular Hemoglobin 33.4 pg (28.0-34.0); Mean Corpuscular Volume 101.3 fl (80-94); Mean Platelet Volume 12.4 fL (7.4-10.4); Monocytes # 0.4 10^3/uL (0.2-0.9); Neutrophils % 75.2 %; Nucleated Red Blood Cells % 0.3 %; Platelet Count 67 10^3/cmm (130-400); Red Blood Count 3.71 10^6/uL (4.1-5.3); Red Cell Distribution Width 15.4 % (12.1-15.1)
[2023-06-18] MEDS: aspirin 81 mg EC Tablet PO (06:15)
[2023-06-18] MEDS: amlodipine 5 mg Tablet PO (06:15)
[2023-06-18] MEDS: ondansetron 2 mg/ML SDV 2 mL 4 MG IVP ×2 (06:28→15:00)
[2023-06-18] MEDS: ketorolac 30 mg/mL INJ 15 MG IVP ×2 (06:28→14:59)
[2023-06-18 06:45] LABS: Alanine Aminotransferase 22 U/L (0-41); Albumin Level 2.8 g/dL (3.5-5.2); Alkaline Phosphatase 95 U/L (40-130); Anion Gap 11.8 (5-19); Aspartate Amino Transferase 28 U/L (0-40); Blood Urea Nitrogen 8 mg/dL (8-23); Calcium 8.3 mg/dL (8.5-10.5); Carbon Dioxide 30 mmol/L (22-29); Chloride 100 mmol/L (98-107); Globulin 2.4 g/dL (1.3-4.6); Glomerular Filtration Rate 166.4 mL/min (90-130); Glucose 137 mg/dL (65-115); Lipase 31 U/L (13-60); Osmolality Calculated 288 mOsm/kg (285-295); Sodium 139 mmol/L (136-145); Total Bilirubin 0.5 mg/dL (0.15-1.2); Total Protein 5.2 g/dL (6.6-8.7); Triglycerides 142 mg/dL (0-150)
[2023-06-18 06:55] LABS: Creatinine Clr Calc Pharmacy 111.0976; Potassium 2.8 mmol/L (3.5-5.1)
[2023-06-18 06:56] LABS: Vitamin B12 347 pg/mL (232-1245)
[2023-06-18] MEDS: potassium chloride ER 20 mEq Tablet 40 MEQ PO (08:26)
[2023-06-18] MEDS: morphine 4 mg/mL SDV 1 mL 2 MG IVP ×3 (08:46→17:54)
[2023-06-18] MEDS: folic acid 1 mg Tablet PO (09:52)
[2023-06-18] MEDS: lisinopril 20 mg Tablet 40 MG PO (09:52)
[2023-06-18] MEDS: sertraline 50 mg Tablet PO (09:52)
[2023-06-18] MEDS: atorvastatin 40 mg Tablet 80 MG PO (09:52)
[2023-06-18] MEDS: fenofibrate 145 mg Tablet PO (09:52)
[2023-06-18] MEDS: thiamine 100 mg Tablet PO (09:52)
[2023-06-18] MEDS: magnesium oxide 400 mg tablet PO ×2 (09:52→17:53)
[2023-06-18] MEDS: mupirocin oint 22 gm 1 APPLIC TOPICAL ×3 (09:52→21:34)
[2023-06-18] MEDS: pantoprazole 40 mg SDV IVP (10:27)
[2023-06-18] MEDS: metoprolol tartrate 25 mg Tablet PO ×2 (10:48→20:48)
--- NOTE | 2023-06-18 15:30 | P.PN_ITS ---
Subjective Subjective: He still having some pain in his abdomen. Legs are hurting him somewhat as well. Otherwise he states he is doing all right. No nausea or vomiting. Tolerating oral intake. Vitals/I&O/Wt Last Vital Signs Temp 98.5 F 06/18/23 15:25 Pulse 86 06/18/23 15:25 Resp 18 06/18/23 15:25 BP 125/81 06/18/23 15:25 Pulse Ox 96 06/18/23 15:25 O2 Del Method Nasal Cannula 06/18/23 15:25 O2 Flow Rate 2 06/18/23 11:59 06/18/23 06/18/23 06/18/23 06:59 14:59 22:59 Intake Total 50 / 1250 50 / 50 Output Total 800 / 1525 275 / 275 200 / 475 Balance -750 / -275 -275 / -275 -150 / -425 Physical Exam Narrative: Up in a chair. Having a visitor. Const: COMMON NORMALS: patient oriented x3 and alert GENERAL APPEARANCE: cooperative NUTRITIONAL APPEARANCE: overweight ORIENTATION/CONSCIOUSNESS: Yes awake HENMT: COMMON NORMALS: oropharynx normal Neck/C-Spine: COMMON NORMALS: no JVD Resp: COMMON NORMALS: normal respiratory effort and clear to auscultation bilaterally AUSCULTATION: clear to auscultation bilaterally Cardio: COMMON NORMALS: no JVD, regular rhythm, S1 normal heart sound present, S2 normal heart sound present and No murmurs present (Cardio) RHYTHM: regular rhythm HEART SOUNDS: S1 normal heart sound present and S2 normal heart sound present GI: COMMON NORMALS: Normal to inspection, nondistended, normoactive bowel sounds present and Soft to palpation PALPATION: Yes Soft to palpation OTHER: Some central tenderness. Neuro: COMMON NORMALS: patient oriented x3 and moves all extremities SENSORIUM/ORIENTATION: Yes alert Skin: OTHER: Old right hip ulcer stage II appearance covered with foam dressing Data 06/18/23 05:50 06/18/23 05:50 Micro: Microbiology 06/15/23 05:30 Urine Culture - Final Urine,Clean Catch Escherichia coli A&P Assessment and plan (1) Hypertriglyceridemia: (2) Fall: Qualifiers: Encounter type: initial encounter Qualified Code(s): W19.XXXA - Unspecified fall, initial encounter (3) Acute pancreatitis: (4) Urinary tract infection: (5) Bilateral primary osteoarthritis of knee: (6) Obesity: (7) Osteoarthritis: (8) Sinus tachycardia: (9) Alcohol abuse: Plan Possible acute encephalopathy: He is awake alert, seems lucid. Noted normalized lipase, triglycerides. Noted normal TSH, normal B12. Seems encephalopathy may have been related to acute pancreatitis, possibly UTI and seems to have resolved. Continue to reassess mental status. Continue treatment of UTI. Continue thiamine, folic acid, multivitamin supplementation. Does not appear to be in alcohol withdrawal at this time. Hypokalemia: Potassium 2.8. Requested replacement. Follow-up chemistry. Check magnesium as well. With severe hypokalemia, risk of arrhythmia, cardiac monitoring. Functional decline: Continue mobilization, physical therapy, discussed with case management. Pending arrangements for rehabilitation at SNF after discharge. 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 Follow-up triglycerides normal. Continue fenofibrate and encourage cessation of alcohol Continue thiamine folic acid he is on phenobarbital as needed Relapse from cessation of alcohol, patient has started drinking alcohol heavily since 2021 Patient does not want to go to any program for detoxification Lactic acidemia related to hypotension due to excessive diarrhea: Resolved. C. difficile negative UTI: Urine culture with noted pansensitive E. coli. We will switch to cefdinir. Continue antiplatelet therapy for history of coronary disease no active left- sided chest pain, Reproducible right-sided chest pain, continues on aspirin. Plavix were held. Hypoxia and sinus tachycardia no PE on CTA chest to rule out PE, no DVT on venous Doppler, D-dimer is high Hypertension: Added multiple antihypertensive regimens yesterday Need optimization Sacral ulcer present on admission, would use OPTi foam Stage I ulcer Also old stage II right hip pressure ulcer: Continue foam dressing. Discussed with him and encouraged repositioning once every 1-2 hours. Patient does get physical therapy once a week at home Full code Wheelchair-bound at home Patient does have in-home services Discussed with case management, PT. Attestations Medical Necessity Statement*: Continue admission for reassessment of acute encephalopathy following acute pancreatitis, UTI, replacement of electrolytes, post discharge planning and arrangements. Diagnoses Hypertriglyceridemia E78.1 Fall W19.XXXA Encounter type: initial encounter Acute pancreatitis K85.90 Urinary tract infection N39.0 Bilateral primary osteoarthritis of knee M17.0 Obesity E66.9 Osteoarthritis M19.90 Sinus tachycardia R00.0 Alcohol abuse F10.10
[2023-06-18] MEDS: enoxaparin 40 mg/0.4 mL Syringe SUBCUT (17:53)
[2023-06-18] MEDS: cefdinir 300 MG CAPSULE PO (17:53)
[2023-06-18] MEDS: trazodone 100 mg Tablet PO (20:48)
[2023-06-19] VITALS: BP 119/74; PULSE 84; RESP 16; TEMP 36.8; O2SAT 94
[2023-06-19 03:56] VITALS: BP 120/76; PULSE 75; RESP 18; TEMP 36.6; O2SAT 98
[2023-06-19 05:12] LABS: Basophils % 0.4 %; Eosinophils # 0.3 10^3/uL (0.0-0.8); Eosinophils % 5.7 %; Hematocrit 37.3 % (42.0-52.0); Hemoglobin 12.3 g/dL (11.7-16.6); Lymphocytes # 1.4 10^3/uL (0.8-4.8); Lymphocytes % 26.3 %; Mean Corpuscular Hemoglobin 34.1 pg (28.0-34.0); Mean Corpuscular Volume 103.3 fl (80-94); Mean Platelet Volume 12.3 fL (7.4-10.4); Monocytes # 0.5 10^3/uL (0.2-0.9); Monocytes % 9.9 %; Neutrophils % 54.8 %; Nucleated Red Blood Cells % 0 %; Platelet Count 62 10^3/cmm (130-400); Red Blood Count 3.61 10^6/uL (4.1-5.3); Red Cell Distribution Width 15.6 % (12.1-15.1); White Blood Count 5.5 10^3/uL (4.0-10.0)
[2023-06-19 05:17] LABS: SARS Covid-2 Antigen negative (Negative)
[2023-06-19 05:46] LABS: Alanine Aminotransferase 18 U/L (0-41); Albumin Level 2.7 g/dL (3.5-5.2); Alkaline Phosphatase 86 U/L (40-130); Anion Gap 10.3 (5-19); Aspartate Amino Transferase 25 U/L (0-40); Blood Urea Nitrogen 10 mg/dL (8-23); Calcium 8.4 mg/dL (8.5-10.5); Carbon Dioxide 34 mmol/L (22-29); Chloride 99 mmol/L (98-107); Globulin 2.4 g/dL (1.3-4.6); Glomerular Filtration Rate 166.4 mL/min (90-130); Glucose 110 mg/dL (65-115); Osmolality Calculated 290 mOsm/kg (285-295); Potassium 3.3 mmol/L (3.5-5.1); Sodium 140 mmol/L (136-145); Total Bilirubin 0.3 mg/dL (0.15-1.2); Total Protein 5.1 g/dL (6.6-8.7)
[2023-06-19 05:52] LABS: Creatinine Clr Calc Pharmacy 111.0976
[2023-06-19 05:53] LABS: Magnesium 2.1 mg/dL (1.7-2.3)
[2023-06-19 06:00] VITALS: PULSE 76
[2023-06-19] MEDS: aspirin 81 mg EC Tablet PO (06:21)
[2023-06-19] MEDS: amlodipine 5 mg Tablet PO (06:21)
[2023-06-19 07:38] VITALS: BP 158/82; PULSE 86; RESP 16; O2SAT 95
[2023-06-19] MEDS: magnesium oxide 400 mg tablet PO (08:28)
[2023-06-19] MEDS: pantoprazole DR 40 mg Tablet PO (08:28)
[2023-06-19] MEDS: atorvastatin 40 mg Tablet 80 MG PO (08:29)
[2023-06-19] MEDS: fenofibrate 145 mg Tablet PO (08:31)
[2023-06-19] MEDS: thiamine 100 mg Tablet PO (08:31)
[2023-06-19] MEDS: cefdinir 300 MG CAPSULE PO (08:31)
[2023-06-19] MEDS: sertraline 50 mg Tablet PO (08:31)
[2023-06-19] MEDS: folic acid 1 mg Tablet PO (08:31)
[2023-06-19] MEDS: lisinopril 20 mg Tablet 40 MG PO (08:31)
[2023-06-19] MEDS: mupirocin oint 22 gm 1 APPLIC TOPICAL (08:34)
[2023-06-19] MEDS: metoprolol tartrate 25 mg Tablet PO (09:32)
[2023-06-19 11:57] VITALS: BP 132/76; PULSE 75; RESP 16; TEMP 36.8; O2SAT 96
[2023-06-19] MEDS: potassium chloride ER 20 mEq Tablet 40 MEQ PO (12:14)
--- NOTE | 2023-06-19 13:09 | PM.DCS ---
Discharge Providers Date of Admission: 06/15/23 07:42 Date of Discharge: June 19, 2023 Attending Provider at Admission: Dominique Montes MD Attending Provider at Discharge: Willie Cowan Primary Care Provider: Alfonso Jacques MD Diagnoses at Discharge Discharge Diagnosis (1) Hypertriglyceridemia: Status: Acute (2) Fall: Status: Acute Qualifiers: Encounter type: initial encounter Qualified Code(s): W19.XXXA - Unspecified fall, initial encounter (3) Acute pancreatitis: Status: Acute (4) Urinary tract infection: Status: Acute (5) Bilateral primary osteoarthritis of knee: Status: Acute (6) Obesity: Status: Acute (7) Osteoarthritis: Status: Chronic Permanent problem details: hip and bilateral knees (8) Sinus tachycardia: Status: Acute (9) Alcohol abuse: Status: Acute Reason for Visit Reason for Visit: CP Hospital Course Hospital Course Pleasant 67-year-old gentleman with history of CAD, COPD, LAUREN, HLD, obesity, GERD, degenerative spine disease, currently smoking, other conditions was admitted after I requested a wellbeing check by EMS he was found down on the floor covered in feces with altered mental status. In ER found to be hypotensive with lactic acidosis, with findings of pancreatitis and severe triglyceridemia. He had reported being sober for quite a while, started drinking alcohol about 4 shots of hard liquor every day for the last 1 year. Gets around in a wheelchair with history of bad knee osteoarthritis. Experiencing diarrhea for 3-4 days preceding hospitalization. Unable to get up from the couch, called EMS twice. Right-sided chest pain on presentation reproducible with palpation. On presentation-hypotensive subsequently hypertensive requiring hydralazine. On admission finding of urinary tract infection started on antibiotic coverage, eventually urine growing pansensitive E. coli. With acute pancreatitis and hypertriglyceridemia was admitted to ICU treated with insulin drip, with improvement in triglyceride level. Alcohol cessation encouraged. Please revisit with him. Continue thiamine, folic acid, multivitamin. Initially sinus tachycardia has resolved likely secondary to pancreatitis. Received a dose of phenobarbital of 4 brief alcohol withdrawal. Mental status otherwise had improved, remained stable, lucid, oriented. D-dimer abnormal, CTA without PE, lower extremity duplex without DVT. Nonspecific T wave abnormality on EKG, mild troponin elevation, studies not suggestive of acute OH. He did require potassium supplementation during hospitalization. He is asked to stop meloxicam. Please follow-up electrolytes, kidney function. Continue treatment of pressure sore on sacrum stage I and stage II on right hip. With functional decline, frequent falls at home, would benefit from rehabilitation and is kindly accepted for it at a local SNF. Physical Exam Const: COMMON NORMALS: patient oriented x3 and alert GENERAL APPEARANCE: cooperative NUTRITIONAL APPEARANCE: overweight ORIENTATION/CONSCIOUSNESS: Yes awake OTHER: Is able to tell me where he is, the year and the month. HENMT: COMMON NORMALS: oropharynx normal Neck/C-Spine: COMMON NORMALS: no JVD Resp: COMMON NORMALS: normal respiratory effort and clear to auscultation bilaterally AUSCULTATION: clear to auscultation bilaterally Cardio: COMMON NORMALS: no JVD, regular rhythm, S1 normal heart sound present, S2 normal heart sound present and No murmurs present (Cardio) RHYTHM: regular rhythm HEART SOUNDS: S1 normal heart sound present and S2 normal heart sound present GI: COMMON NORMALS: Normal to inspection, nondistended, normoactive bowel sounds present, Soft to palpation and non-tender PALPATION: Yes Soft to palpation Neuro: COMMON NORMALS: patient oriented x3 and moves all extremities SENSORIUM/ORIENTATION: Yes alert Skin: OTHER: Old right hip ulcer stage II appearance covered with foam dressing Discharge Data Studies Completed and Pending Completed Studies During Hospitalization Category Date Time Status CT abdomen pelvis w con* [id number] Urgent Cat Scan 06/15/23 03:37 Completed CTA PE [CT angio chest PE protcl [id number]] Routine Cat Scan 06/16/23 14:34 Completed XR chest 1V portable [id number] Stat Exams 06/15/23 03:16 [place] [id number] Routine Ultrasound 06/16/23 14:34 Completed Pending at discharge Category Date Time Status Blood Culture Stat Lab 06/15/23 03:49 Results Complete Blood Count w/Auto AM LABS Lab 06/20/23 04:00 Ordered Comprehensive Metabolic Panel AM LABS Lab 06/20/23 04:00 Ordered Radiology Impressions Chest X-Ray 06/15/23 03:16 IMPRESSION: No acute findings. Abdomen/Pelvis CT 06/15/23 03:37 IMPRESSION: 1. Pancreatic edema with peripancreatic inflammatory change. Findings are suggestive of acute pancreatitis. 2. Fatty infiltration of the liver 3. Distal abdominal aortic aneurysm measuring 4.2 cm in maximum dimension. Chest CTA 06/16/23 14:34 IMPRESSION: 1. Findings consistent with acute pancreatitis. 2. Small left pleural effusion with adjacent compressive atelectasis. Trace right pleural fluid. 3. Fatty infiltration of the liver. 4. Multivessel atherosclerotic disease which involves the coronary arteries. Venous Duplex 06/16/23 14:34 IMPRESSION: No evidence of deep vein thrombosis. Laboratory Results WBC 5.5 10^3/uL (4.0-10.0) 06/19/23 04:17 RBC 3.61 10^6/uL (4.1-5.3) L 06/19/23 04:17 Hgb 12.3 g/dL (11.7-16.6) 06/19/23 04:17 Hct 37.3 % (42.0-52.0) L 06/19/23 04:17 MCV 103.3 fl (80-94) H 06/19/23 04:17 MCH 34.1 pg (28.0-34.0) H 06/19/23 04:17 MCHC 33.0 g/dL (30.0-36.0) 06/19/23 04:17 RDW 15.6 % (12.1-15.1) H 06/19/23 04:17 Plt Count 62 10^3/cmm (130-400) L 06/19/23 04:17 MPV 12.3 fL (7.4-10.4) H 06/19/23 04:17 Neut % (Auto) 54.8 % 06/19/23 04:17 Lymph % (Auto) 26.3 % 06/19/23 04:17 [place] % (Auto) 9.9 % 06/19/23 04:17 Eos % (Auto) 5.7 % 06/19/23 04:17 Baso % (Auto) 0.4 % 06/19/23 04:17 Neut # (Auto) 3.00 10^3/uL (1.8-7.7) 06/19/23 04:17 Lymph # (Auto) 1.4 10^3/uL (0.8-4.8) 06/19/23 04:17 [place] # (Auto) 0.5 10^3/uL (0.2-0.9) 06/19/23 04:17 Eos # (Auto) 0.3 10^3/uL (0.0-0.8) 06/19/23 04:17 Baso # (Auto) 0.0 10^3/uL (0.0-0.1) 06/19/23 04:17 Nucleated RBC % (auto) 0 % 06/19/23 04:17 Nucleated RBCs # 0.0 /100WBC 06/19/23 04:17 PT 13.60 SECONDS (12.1-14.9) 06/15/23 03:20 INR 1.01 (0.8-1.2) 06/15/23 03:20 D-Dimer 1.72 ug/mIFEU (0-0.59) H 06/16/23 10:10 Sodium 140 mmol/L (136-145) 06/19/23 04:17 Potassium 3.3 mmol/L (3.5-5.1) L 06/19/23 04:17 Chloride 99 mmol/L (98-107) 06/19/23 04:17 Carbon Dioxide 34 mmol/L (22-29) H 06/19/23 04:17 Anion Gap 10.3 (5-19) 06/19/23 04:17 BUN 10 mg/dL (8-23) 06/19/23 04:17 Creatinine 0.5 mg/dL (0.7-1.2) L 06/19/23 04:17 GFR Calculation 166.4 mL/min (90-130) H 06/19/23 04:17 Glucose 110 mg/dL (65-115) 06/19/23 04:17 POC Glucose 155 mg/dL (70-110) H 06/15/23 17:02 Calculated Osmolality 290 mOsm/kg (285-295) 06/19/23 04:17 Lactic Acid 5.3 mmol/L (0.5-2.2) H* 06/15/23 03:20 Lactic Acid (Sepsis) 4.5 mmol/L (0.5-2.2) H* 06/15/23 05:35 Lactate 0.7 mmol/L (0.5-2.2) 06/16/23 04:21 Calcium 8.4 mg/dL (8.5-10.5) L 06/19/23 04:17 Magnesium 2.1 mg/dL (1.7-2.3) 06/19/23 04:17 Total Bilirubin 0.3 mg/dL (0.15-1.2) 06/19/23 04:17 AST 25 U/L (0-40) 06/19/23 04:17 ALT 18 U/L (0-41) 06/19/23 04:17 Alkaline Phosphatase 86 U/L (40-130) 06/19/23 04:17 Creatine Kinase > 760 U/L (39-308) H* 06/15/23 03:20 Troponin T Baseline 25 ng/L (0-15) H 06/15/23 03:00 Troponin T 120 Minute 21.70 ng/L (0-15) H 06/15/23 04:48 Delta Troponin T -3.30 ABS# (0-10) L 06/15/23 04:48 Troponin T Hi Sens 6Hr 22.81 ng/L (0-15) H 06/15/23 08:55 Troponin T Hi Sens 6Hr Delta -2.19 ng/L (0-12) L 06/15/23 08:55 C-Reactive Protein 8.3 mg/L (0.0-4.9) H 06/15/23 03:00 Total Protein 5.1 g/dL (6.6-8.7) L 06/19/23 04:17 Albumin 2.7 g/dL (3.5-5.2) L 06/19/23 04:17 Globulin 2.4 g/dL (1.3-4.6) 06/19/23 04:17 Triglycerides 142 mg/dL (0-150) 06/18/23 05:50 LDL Cholesterol Direct 25 mg/dL (0-100) 06/15/23 08:55 Lipase 31 U/L (13-60) 06/18/23 05:50 Vitamin B12 347 pg/mL (232-1245) 06/18/23 05:50 TSH 3.67 uIU/mL (0.27-4.20) 06/17/23 04:55 Urine Color Yellow (Yellow) 06/15/23 05:30 Urine Appearance Cloudy (CLEAR) A 06/15/23 05:30 Urine pH 5 (5-7) 06/15/23 05:30 Ur Specific [place] 1.015 (1.005-1.030) 06/15/23 05:30 Urine Protein 1+ (Negative) H 06/15/23 05:30 Urine Glucose (UA) Norm (Normal) 06/15/23 05:30 Urine Ketones Negative (Negative) 06/15/23 05:30 Urine Blood 3+ (Negative) H 06/15/23 05:30 Urine Nitrate Positive (Negative) H 06/15/23 05:30 Urine Bilirubin Neg (Negative) 06/15/23 05:30 Urine Urobilinogen Norm mg/dL (Negative) 06/15/23 05:30 Ur Leukocyte Esterase 2+ (Negative) H 06/15/23 05:30 Urine RBC 10-15 /hpf (0-2) H 06/15/23 05:30 Urine WBC 55-80 /hpf (0-5) H 06/15/23 05:30 Ur Squamous Epith Cells 0-4 /hpf (0-5) H 06/15/23 05:30 Amorphous Sediment Not Reportable 06/15/23 05:30 Urine Bacteria 2+ /hpf (NONE) H 06/15/23 05:30 SARS-CoV-2 Ag (Rapid) negative (Negative) 06/19/23 04:55 Vitals Last Vital Signs Temp 98.2 F 06/19/23 11:57 Pulse 75 06/19/23 11:57 Resp 16 06/19/23 11:57 BP 132/76 06/19/23 11:57 Pulse Ox 96 06/19/23 11:57 O2 Del Method Nasal Cannula 06/19/23 11:57 O2 Flow Rate 2 06/18/23 11:59 Discharge Plan Discharge Patient Disposition: Xfer SNF Condition: Stable Prescriptions: New folic acid 1 mg Tablet 1 mg PO DAILY Qty: 90 0RF cefdinir 300 mg Capsule 300 mg PO BID Qty: 12 0RF fenofibrate nanocrystallized 145 mg Tablet 145 mg PO DAILY Qty: 90 0RF thiamine mononitrate (vit B1) [Vitamin B-1 (mononitrate)] 100 mg Tablet 100 mg PO DAILY Qty: 90 0RF metoprolol tartrate 25 mg Tablet 25 mg PO BID@0900,2100 Qty: 180 0RF multivitamin [Daily Multi-Vitamin] Tablet 1 tab PO DAILY Qty: 90 0RF potassium chloride 10 mEq tablet extended release 10 meq PO DAILY Qty: 30 0RF Continued gabapentin 100 mg capsule 100 mg PO TID Qty: 90 0RF tizanidine 4 mg tablet 4 mg PO TID PRN (Reason: muscle spasticity) Qty: 90 0RF omeprazole 40 mg capsule,delayed release(DR/EC) 40 mg PO DAILY Qty: 90 3RF (DME) [place] See Rx Instructions .Route .MEDSUPPLY Qty: 1 0RF Rx Instructions: As directed (DME) [employer] See Rx Instructions .Route .MEDSUPPLY Qty: 1 0RF Rx Instructions: As directed amlodipine 5 mg Tablet 5 mg PO QAM lisinopril 40 mg tablet 40 mg PO DAILY sertraline [Zoloft] 50 mg Tablet 50 mg PO DAILY rosuvastatin [Crestor] 20 mg Tablet 20 mg PO QAM trazodone 100 mg tablet 100 mg PO BEDTIME aspirin 81 mg Tablet,Delayed Release (Dr/Ec) 81 mg PO QAM ketoconazole 2 % cream 1 applic TOPICAL BID PRN (Reason: unknown) albuterol sulfate 90 mcg/actuation Hfa Aerosol Inhaler 2 puff INHALATION QID PRN (Reason: Shortness Of Breath) Nitrostat 0.4 mg Tablet, Sublingual 0.4 mg SUBLINGUAL Q5M PRN (Reason: Chest Pain) Rx Instructions: do not exceed 3 doses per episode hydrocodone-acetaminophen 10-325 mg tablet 1 tab PO Q4H MDD 4 tabs PRN (Reason: Pain) tramadol 50 mg tablet 100 mg PO BID ergocalciferol (vitamin D2) 1,250 mcg (50,000 unit) capsule See Rx Instructions .ROUTE .COMPLEX Rx Instructions: Take 1 capsule by mouth once a week -Take for 8 weeks then change to Vitamin D3 Daily. Discontinued meloxicam 15 mg tablet 15 mg PO DAILY Discharge Orders: Discharge Order (Routine); Ordered 06/19/23 Ordered By: Willie Cowan Referrals: Alfonso Jacques MD [Primary Care Provider] - 4-7 days Discharge Diet: Advance as tolerated and Low Fat Discharge Activity: As per PT/OT instructions Patient Instructions: Cefdinir (By mouth), Pancreatitis (GEN), Urinary Tract Infection in Men (GEN), Low Fat Diet (GEN), Hypokalemia (GEN), How to Prevent Pressure Injuries (GEN), Pressure Injury (GEN), Hyperlipidemia (GEN), Opioid Safety Activity Restrictions/Additional Instructions: Continue fibrate, statin for elevated triglyceride level to prevent worsening and prevent recurrence of pancreatitis. Abstain from any alcohol as alcohol in any amount with the risk of recurrence of pancreatitis, with recurrent pancreatitis there may be risk of development of chronic pancreatitis, chronic pain, and diarrhea/malabsorption. With fenofibrate and atorvastatin combined increased risk of rhabdomyolysis, which showed 20 symptoms of muscle aches, muscle weakness, reports your doctor immediately. Abstain from any alcohol, seek help if having difficulty stopping, consider turning leaf. Complete antibiotic course for urinary tract infection. Follow-up with your primary doctor for reassessment of elevated triglycerides, reassessment after pancreatitis, reassessment of alcohol cessation, follow-up after urinary tract infection. Continue treatment of pressure ulcers on the sacrum and the right hip. Apply foam dressing. Reposition frequently. Do not lay on area of the pressure ulcer to allow healing. Consider addition of protein shakes to meals. Discharge Attestations Time Spent in Discharge Care*: greater than 30 min Quality Metrics Clinical Quality Measures [ No reported AMI, CVA or VTE this stay] Coding Level of Care Code 85542 Total time (in minutes) for Discharge: 45 Diagnoses Hypertriglyceridemia E78.1 Fall W19.XXXA Encounter type: initial encounter Acute pancreatitis K85.90 Urinary tract infection N39.0 Bilateral primary osteoarthritis of knee M17.0 Obesity E66.9 Osteoarthritis M19.90 Sinus tachycardia R00.0 Alcohol abuse F10.10
[2023-06-19 14:22] VITALS: BP 132/76; PULSE 75; RESP 16; TEMP 36.8; O2SAT 96
== END 2023-06-19 14:26 | disposition skilled nursing facility (03) | DRG 438 ==
LOC: ER 06:14 → ICU 06:24 → MEDSURG 06-16 17:07
PROVIDERS: Internal Medicine; Admitting Provider Student in an Organized Health Care Education/Training Program; Emergency Provider Emergency Medicine; PCP Family Medicine; Visit Provider Internal Medicine
DX: K85.20 Alcohol induced acute pancreatitis without necrosis or infection (principal); G93.41 Metabolic encephalopathy; E87.20 Acidosis, unspecified; F10.139 Alcohol abuse with withdrawal, unspecified; N39.0 Urinary tract infection, site not specified; E78.1 Pure hyperglyceridemia; I25.10 Atherosclerotic heart disease of native coronary artery without angina pectoris; Z95.5 Presence of coronary angioplasty implant and graft; J44.9 Chronic obstructive pulmonary disease, unspecified; G47.33 Obstructive sleep apnea (adult) (pediatric); E78.5 Hyperlipidemia, unspecified; E66.9 Obesity, unspecified; Z68.29 Body mass index [BMI] 29.0-29.9, adult; K21.9 Gastro-esophageal reflux disease without esophagitis; F17.210 Nicotine dependence, cigarettes, uncomplicated; I95.9 Hypotension, unspecified; Z99.3 Dependence on wheelchair; M17.0 Bilateral primary osteoarthritis of knee; B96.20 Unspecified Escherichia coli [E. coli] as the cause of diseases classified elsewhere; L89.151 Pressure ulcer of sacral region, stage 1; L89.212 Pressure ulcer of right hip, stage 2; Z79.891 Long term (current) use of opiate analgesic; E87.6 Hypokalemia; E86.0 Dehydration; M47.812 Spondylosis without myelopathy or radiculopathy, cervical region; M47.816 Spondylosis without myelopathy or radiculopathy, lumbar region; I10 Essential (primary) hypertension; I25.2 Old myocardial infarction; W19.XXXA Unspecified fall, initial encounter; Z79.51 Long term (current) use of inhaled steroids
CPT/HCPCS: 36415; 36416; 71045; 71275; 74177; 80053; 81001; 82550; 82607; 82962; 83605; 83690; 83721; 83735; 84443; 84478; 84484; 85025; 85378; 85610; 86140; 87040; 87077; 87086; 87186; 87426; 87493; 87506; 93005; 93970; 96365; 96372; 96375; 96376; 97110; 97161; 97530; 99281; 99285; C9113; J0360; J0696; J1650; J1815; J1885; J2250; J2270; J2405; J2543; J2560; J2765; J3370; J3480; J7030; J7050; J7799; Q3014; Q9967

== ENCOUNTER → 2023-07-17 09:12 | Outpatient (BNVA) | payer MEDICARE, MEDICAID, SELFPAY | PROVIDERS: PCP Family Medicine; Visit Provider Nurse Practitioner Family | DX: S82.201A Unspecified fracture of shaft of right tibia, initial encounter for closed fracture (principal); S82.401A Unspecified fracture of shaft of right fibula, initial encounter for closed fracture; M17.12 Unilateral primary osteoarthritis, left knee; X58.XXXA Exposure to other specified factors, initial encounter | CPT/HCPCS: 20610; 73560; 73562; 73565; 99214; J1100; J2795; J3301 ==

== ENCOUNTER → 2024-02-27 09:08 | Outpatient (BNVA) | payer MEDICARE, MEDICAID, SELFPAY | PROVIDERS: PCP Family Medicine; Visit Provider Podiatrist Foot & Ankle Surgery | DX: L60.3 Nail dystrophy (principal); I73.9 Peripheral vascular disease, unspecified | CPT/HCPCS: 11721; 99203 ==

== ENCOUNTER 2024-03-12 11:17 | Outpatient (CLI) | payer MEDICARE, MEDICAID, SELFPAY ==
--- NOTE | 2024-03-12 11:25 | USCV_ITS ---
Khoa Brewer Age: 68 Gender: M : 1955 Exam Date: 03/12/2024 11:39 Ordering Phys: Roula Dumont Technologist: Exam Location: [facility] [place] Indication: pedal edema BP: 150 / 80 HR: 86 Rhythm: Sinus Technical Quality: Adequate MEASUREMENTS (Male / Female) Normal Values 2D ECHO LV Diastolic Diameter PLAX 3.4 cm 4.2 - 5.9 / 3.9 - 5.3 cm IVS Diastolic Thickness 1.3 cm 0.6 - 1.0 / 0.6 - 0.9 cm IVS Systolic Thickness 1.5 cm LVPW Diastolic Thickness 1.3 cm 0.6 - 1.0 / 0.6 - 0.9 cm LVPW Systolic Thickness 1.8 cm LVOT Diameter 2.0 cm LV Ejection Fraction 2D Teich 58.4 % LV Ejection Fraction MOD 2C 68.6 % LV Ejection Fraction 2C AL 69.8 % LA Diameter 3.6 cm RA Systolic Volume 4C AL 41.1 ml RA Systolic Volume 4C MOD 40.0 ml Aorta at Sinotubular Diameter 3.0 cm IVC Diameter 2.3 cm M-MODE LA Ao Ratio MM 1.1 AV Cusp Separation MM 2.3 cm DOPPLER AV Peak Velocity 134.0 cm/s LVOT Peak Velocity 125.0 cm/s AV Area Cont Eq vti 3.5 cm squared AV Area Cont Eq pk 3.1 cm squared MV Peak Velocity 115.0 cm/s MV Area PHT 6.8 cm squared Mitral E to A Ratio 0.6 TR Peak Velocity 61.0 cm/s TR Peak Gradient 1.5 mmHg Right Atrial Pressure 3.0 mmHg Pulmonary Artery Systolic Pressu 4.5 mmHg PV Peak Velocity 73.5 cm/s FINDINGS Left Ventricle Left ventricle normal in size. LV systolic function is normal with EF 55 to 60%. No regional wall motion abnormalities are seen. Grade 1 diastolic dysfunction Right Ventricle Normal in size and function Right Atrium Normal in size Left Atrium Normal in size Mitral Valve Structurally normal mitral valve. Trace mitral regurgitation. Aortic Valve Structurally normal aortic valve. Trace aortic regurgitation. No significant stenosis Tricuspid Valve Mild tricuspid regurgitation. Insufficient TR jet to evaluate RVSP Pulmonic Valve Not well visualized Pericardium Normal Aorta Normal in size IVC Appears to be normal CONCLUSIONS LV systolic function normal with EF 55 to 60%. Grade 1 diastolic dysfunction. Trace mitral regurgitation. Trace aortic regurgitation Mild tricuspid regurgitation Brian Owens MD (Electronically Signed) Final Date: 15 March 2024 10:39 S
== END 2024-03-12 11:18 | disposition home or self-care (01) ==
LOC: RAD 11:18
PROVIDERS: PCP Family Medicine; Visit Provider Nurse Practitioner Family
DX: I08.3 Combined rheumatic disorders of mitral, aortic and tricuspid valves (principal); R60.9 Edema, unspecified; Z98.61 Coronary angioplasty status; I10 Essential (primary) hypertension; I67.9 Cerebrovascular disease, unspecified; I25.10 Atherosclerotic heart disease of native coronary artery without angina pectoris
CPT/HCPCS: 93306

== ENCOUNTER 2024-03-12 12:04 | Emergency (ER) | payer MEDICARE, MEDICAID, SELFPAY ==
[2024-03-12 12:13] VITALS: BP 158/98; PULSE 95; RESP 14; TEMP 36.5; O2SAT 90; BMI 33.0
--- NOTE | 2024-03-12 12:29 | XRR_ITS ---
PROCEDURE INFORMATION: Exam: XR Chest Exam date and time: 03/12/2024 1:30 PM Age: 68 years old Clinical indication: Cough and dyspnea; Additional info: Dyspnea/cough TECHNIQUE: Imaging protocol: Radiologic exam of the chest. Views: 1 view. COMPARISON: CT angio chest PE protcl [id number] 06/16/2023 4:00 PM FINDINGS: Lungs: Suboptimal pulmonary expansion with associated accentuation of bronchovascular markings. Possible new right basilar atelectasis and/or airspace disease. Pleural spaces: No pleural effusion or pneumothorax. Heart/Mediastinum: Cardiomediastinal contours accentuated by low lung volumes and AP technique. Bones/joints: No significant pathology. Other findings: Patient is rotated. XR/XR chest 1V portable [id number] IMPRESSION: Technically limited exam. Possible new right basilar pathology. PA and lateral projections recommended for further assessment if clinically feasible.
--- NOTE | 2024-03-12 12:34 | W.ED.EXTPRO ---
HPI - Extremity Problem General: Chief complaint: Extremity Problem,Nontraumatic Stated complaint: sent over by dr swollen feet Time Seen by Provider: 03/12/24 12:26 Source: patient Mode of arrival: ambulatory History of Present Illness: 68-year-old male presents to the emergency room with bilateral swelling in the lower extremities for the last month. He was sent here by his primary care provider. He reports pain 10 of 10 in his feet. He has not had any fever sweats or chills he has been taking diuretics with no relief of symptoms. No history of DVT or PE he is not on any oral anticoagulants he does take aspirin daily. He was recently started on Lasix but does not seem to have helped. 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 Cervical radiculitis Osteoarthritis hip and bilateral knees Surgical History H/O circumcision Presence of stent in left circumflex coronary artery S/P cholecystectomy S/P knee surgery right knee at age 21 Family History Mother Family history of premature coronary artery disease Sister Cancer Nasal Denies family history of Anesthesia complication Bleeding disorder Social History Smoking and tobacco/nicotine status: current every day tobacco/nicotine user cigarettes Packs smoked per day: 1.5 [ Other cigarette details: DOWN FROM 2.5 PPD] Alcohol intake: current Alcohol intake frequency: few times a week Substance/Drug Use: never Lives independently: Yes Marital status: Single Current occupational status: disabled Physical Exam Const: COMMON NORMALS: no acute distress GENERAL APPEARANCE: cooperative and comfortable ORIENTATION/CONSCIOUSNESS: Yes awake, Yes oriented to person, Yes oriented to place and Yes oriented to time HENMT: COMMON NORMALS: normocephalic, atraumatic and hearing grossly normal bilaterally HEAD & SCALP: normocephalic and atraumatic Resp: COMMON NORMALS: normal respiratory effort, No retractions, No use of accessory muscles and clear to auscultation bilaterally AUSCULTATION: clear to auscultation bilaterally Cardio: COMMON NORMALS: regular rate, regular rhythm and No murmurs present (Cardio) RATE: regular rate RHYTHM: regular rhythm GI: COMMON NORMALS: Soft to palpation and No hepatosplenomegaly present AUSCULTATION: Yes normoactive bowel sounds PALPATION: Yes Soft to palpation, No Tenderness to palpation present (GI), No Guarding due to palpation present (GI) and Yes No hepatosplenomegaly present Extremity: COMMON NORMALS: normal to inspection, capillary refill normal, no clubbing, cyanosis or edema, no calf tenderness and no pedal edema Neuro: SENSORIUM/ORIENTATION: Yes oriented to person, Yes oriented to place and Yes oriented to time Skin: COMMON NORMALS: no rashes or lesions noted GENERAL SKIN EXAM: no rashes or lesions noted Course Vital Signs: Vital signs: Vital Signs Temperature 97.7 F 03/12/24 12:13 Pulse Rate 90 03/12/24 13:16 Respiratory Rate 14 03/12/24 12:13 Blood Pressure 171/97 03/12/24 13:16 Pulse Oximetry 92 03/12/24 13:16 Oxygen Delivery Me thod Room Air 03/12/24 12:46 MDM - Extremity (Nontraumatic) Medical Decision Making Venous duplex negative for DVT. No signs of acute congestive heart failure. His breathing he reports is normal upright he has a little bit of orthopnea. Will discharge him home with Lasix 60 mg daily. Follow-up with his primary care doctor within the next week. Incidental notation of a bladder infection as well. He was discharged home with oral antibiotics for his bladder infection. If symptoms worsen or develops fever return to the emergency room Medical Records I reviewed the patient's medical records. Lab Data I reviewed the patient's lab results. 03/12/24 12:45 03/12/24 12:45 Radiology Impressions Chest X-Ray 03/12/24 12:29 IMPRESSION: Technically limited exam. Possible new right basilar pathology. PA and lateral projections recommended for further assessment if clinically feasible. Laboratory Results WBC 7.70 10^3/uL (3.29-11.43) 03/12/24 12:45 RBC 4.55 10^6/uL (3.85-5.65) 03/12/24 12:45 Hgb 14.10 g/dL (11.27-16.99) 03/12/24 12:45 Hct 45.1 % (37-53) 03/12/24 12:45 MCV 99.1 fl (82-101) 03/12/24 12:45 MCH 31.0 pg (27-33) 03/12/24 12:45 MCHC 31.3 g/dL (30-55) 03/12/24 12:45 RDW 16.9 % (12.1-15.1) H 03/12/24 12:45 Plt Count 257 10^3/cmm (157-399) 03/12/24 12:45 MPV 10.5 fL (7.4-10.4) H 03/12/24 12:45 Neut % (Auto) 64.3 % 03/12/24 12:45 Lymph % (Auto) 21.6 % 03/12/24 12:45 [place] % (Auto) 10.1 % 03/12/24 12:45 Eos % (Auto) 2.3 % 03/12/24 12:45 Baso % (Auto) 0.8 % 03/12/24 12:45 Neut # (Auto) 4.95 10^3/uL (1.8-7.7) 03/12/24 12:45 Lymph # (Auto) 1.7 10^3/uL (0.8-4.8) 03/12/24 12:45 [place] # (Auto) 0.8 10^3/uL (0.2-0.9) 03/12/24 12:45 Eos # (Auto) 0.2 10^3/uL (0.0-0.8) 03/12/24 12:45 Baso # (Auto) 0.1 10^3/uL (0.0-0.1) 03/12/24 12:45 Nucleated RBC % (auto) 0 % 03/12/24 12:45 Nucleated RBCs # 0.0 /100WBC 03/12/24 12:45 Sodium 144 mmol/L (136-145) 03/12/24 12:45 Potassium 4.8 mmol/L (3.5-5.1) 03/12/24 12:45 Chloride 107 mmol/L (98-107) 03/12/24 12:45 Carbon Dioxide 27 mmol/L (22-29) 03/12/24 12:45 Anion Gap 14.8 (5-19) 03/12/24 12:45 BUN 23 mg/dL (8-23) 03/12/24 12:45 Creatinine 1.1 mg/dL (0.7-1.2) 03/12/24 12:45 GFR Calculation 66.8 mL/min (90-130) L 03/12/24 12:45 Glucose 119 mg/dL (65-115) H 03/12/24 12:45 Calculated Osmolality 303 mOsm/kg (285-295) H 03/12/24 12:45 Calcium 9.3 mg/dL (8.5-10.5) 03/12/24 12:45 Total Bilirubin 0.2 mg/dL (0.15-1.2) 03/12/24 12:45 AST 14 U/L (0-40) 03/12/24 12:45 ALT 14 U/L (0-41) 03/12/24 12:45 Alkaline Phosphatase 107 U/L (40-130) 03/12/24 12:45 NT-Pro-B Natriuret Pep 413 pg/mL (0-125) H 03/12/24 12:45 Total Protein 7.9 g/dL (6.6-8.7) 03/12/24 12:45 Albumin 4.3 g/dL (3.5-5.2) 03/12/24 12:45 Globulin 3.6 g/dL (1.3-4.6) 03/12/24 12:45 Urine Color Yellow (Yellow) 03/12/24 12:40 Urine Appearance Hazy (CLEAR) A 03/12/24 12:40 Urine pH 6 (5-7) 03/12/24 12:40 Ur Specific [place] 1.010 (1.005-1.030) 03/12/24 12:40 Urine Protein Trace (Negative) 03/12/24 12:40 Urine Glucose (UA) Norm (Normal) 03/12/24 12:40 Urine Ketones Negative (Negative) 03/12/24 12:40 Urine Blood 2+ (Negative) H 03/12/24 12:40 Urine Nitrate Positive (Negative) H 03/12/24 12:40 Urine Bilirubin Neg (Negative) 03/12/24 12:40 Urine Urobilinogen Neg mg/dL (Negative) 03/12/24 12:40 Ur Leukocyte Esterase 2+ (Negative) H 03/12/24 12:40 Urine RBC 10-15 /hpf (0-2) H 03/12/24 12:40 Urine WBC >100 /hpf (0-5) H 03/12/24 12:40 Ur Squamous Epith Cells 0-4 /hpf (0-5) H 03/12/24 12:40 Amorphous Sediment Not Reportable 03/12/24 12:40 Urine Bacteria 3+ /hpf (NONE) H 03/12/24 12:40 All radiology interpretation(s) finalized by discharge Discharge Plan Discharge Patient Disposition: Home Clinical Impression: Urinary tract infection, Bilateral edema of lower extremity Condition: Stable Prescriptions: New Lasix 40 mg tablet 40 mg PO QAM Qty: 10 0RF Cipro 500 mg tablet 500 mg PO BID Qty: 14 0RF No Action tizanidine 4 mg tablet 4 mg PO TID PRN (Reason: muscle spasticity) Qty: 90 0RF omeprazole 40 mg capsule,delayed release(DR/EC) 40 mg PO DAILY Qty: 90 3RF (DME) [place] See Rx Instructions .Route .MEDSUPPLY Qty: 1 0RF Rx Instructions: As directed (DME) Hinge Knee Brace See Rx Instructions .Route .MEDSUPPLY Qty: 1 0RF Rx Instructions: As directed amlodipine 5 mg Tablet 5 mg PO QAM sertraline [Zoloft] 50 mg Tablet 50 mg PO DAILY rosuvastatin [Crestor] 20 mg Tablet 20 mg PO QAM trazodone 100 mg tablet 100 mg PO BEDTIME aspirin 81 mg Tablet,Delayed Release (Dr/Ec) 81 mg PO QAM albuterol sulfate 90 mcg/actuation Hfa Aerosol Inhaler 2 puff INHALATION QID PRN (Reason: Shortness Of Breath) nitroglycerin [Nitrostat] 0.4 mg Tablet, Sublingual 0.4 mg SUBLINGUAL Q5M PRN (Reason: Chest Pain) Rx Instructions: do not exceed 3 doses per episode hydrocodone-acetaminophen 10-325 mg tablet 1 tab PO Q4H MDD 4 tabs PRN (Reason: Pain) tramadol 50 mg tablet 100 mg PO BID Vitamin B-1 (mononitrate) 100 mg Tablet 100 mg PO DAILY Qty: 90 0RF metoprolol tartrate 25 mg Tablet 25 mg PO BID@0900,2100 Qty: 180 0RF potassium chloride 10 mEq tablet extended release 10 meq PO DAILY Qty: 30 0RF lisinopril 20 mg tablet 20 mg PO DAILY gabapentin 300 mg capsule 300 mg PO BID Discharge Orders: Discharge ED (Routine); Ordered 03/12/24 Ordered By: Rajan Fletcher Referrals: Alfonso Jacques MD [Primary Care Provider] - Discharge Diet: Cardiac Discharge Activity: Increase activity as tolerated Patient Instructions: Opioid Safety, Pain Management Activity Restrictions/Additional Instructions: Thank you for choosing [facility] for your healthcare needs today. Please realize this is an emergency room and that we are providing you with a medical screening exam and this may not be complete and all inclusive of all the testing and or work up that you may need to determine your ailment or severity of your illness. It is very important that you follow up as instructed or that you return to the Emergency Department should you have concerns or if your condition changes or worsens in any way. You were seen today for complaints of swelling in your legs. Cardiac enzymes and EKG did not show anything acute. Chest x-ray did not have any significant congestive heart failure. You did have a mild cystitis (bladder infection). You will be given a prescription for antibiotics to take at home. Recommend you follow-up with your primary care doctor within the week you should take the diuretic once daily for the next 7 to 10 days. Coding Level of Care Code ED Packing Machine Can Feeder for Caitlin Black
[2024-03-12 12:46] VITALS: BP 171/97; PULSE 67; O2SAT 90
--- NOTE | 2024-03-12 12:49 | ECG_ITS ---
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 Measurements Intervals [place] Rate: 79 P: 69 [place]: 145 QRS: 73 QRSD: 91 T: 74 QT: 384 QTc: 441 Interpretive Statements SINUS RHYTHM Compared to ECG 06/15/2023 20:56:11 Sinus tachycardia no longer present Ventricular premature complex(es) no longer present T-wave abnormality no longer present Electronically Signed On 03-13-2024 17:03:28 CDT by Brian Owens M.D. [id number]
--- NOTE | 2024-03-12 12:51 | USCV_ITS ---
Osman Khoa Age: 68 Gender: M : 1955 Exam Date: 03/12/2024 13:03 Ordering Phys: Rajan Fletcher DO Technologist: YANCY [place] [facility] [place]: BLE SWELLING HISTORY: Lower extremity swelling. PROCEDURES: Venous duplex imaging was performed in bilateral lower extremities. The following venous structures were evaluated: common femoral vein, profunda vein, proximal portion of the greater saphenous vein, superficial femoral vein, and the popliteal vein. In addition, the posterior tibial and peroneal trunk were evaluated. Serial compression, augmentation maneuvers, and spectral Doppler flow evaluation were performed. FINDINGS: No evidence of DVT seen in any vessel visualized at this time. Edema seen in Bilat lower legs CONCLUSIONS No DVT bilateral lower extremities. Dr. Yennifer Jiménez DO (Electronically Signed) Final Date: 12 March 2024 13:38 S
[2024-03-12 12:58] LABS: Basophils # 0.1 10^3/uL (0.0-0.1); Basophils % 0.8 %; Eosinophils # 0.2 10^3/uL (0.0-0.8); Eosinophils % 2.3 %; Hematocrit 45.1 % (37-53); Lymphocytes # 1.7 10^3/uL (0.8-4.8); Lymphocytes % 21.6 %; Mean Corpuscular HGB Conc 31.3 g/dL (30-55); Mean Corpuscular Volume 99.1 fl (82-101); Mean Platelet Volume 10.5 fL (7.4-10.4); Monocytes # 0.8 10^3/uL (0.2-0.9); Monocytes % 10.1 %; Neutrophils # 4.95 10^3/uL (1.8-7.7); Neutrophils % 64.3 %; Nucleated Red Blood Cells % 0 %; Platelet Count 257 10^3/cmm (157-399); Red Blood Count 4.55 10^6/uL (3.85-5.65); Red Cell Distribution Width 16.9 % (12.1-15.1)
[2024-03-12] MEDS: FUROsemide 10 mg/mL SDV 10mL 60 MG IVP (13:01)
[2024-03-12 13:16] VITALS: BP 171/97; PULSE 90; O2SAT 92
[2024-03-12 13:23] LABS: Alanine Aminotransferase 14 U/L (0-41); Albumin Level 4.3 g/dL (3.5-5.2); Alkaline Phosphatase 107 U/L (40-130); Anion Gap 14.8 (5-19); Aspartate Amino Transferase 14 U/L (0-40); Blood Urea Nitrogen 23 mg/dL (8-23); Calcium 9.3 mg/dL (8.5-10.5); Carbon Dioxide 27 mmol/L (22-29); Chloride 107 mmol/L (98-107); Creatinine Clr Calc Pharmacy 83.7203; Globulin 3.6 g/dL (1.3-4.6); Glomerular Filtration Rate 66.8 mL/min (90-130); Glucose 119 mg/dL (65-115); NT Pro B Type Natriuretic Pept 413 pg/mL (0-125); Osmolality Calculated 303 mOsm/kg (285-295); Potassium 4.8 mmol/L (3.5-5.1); Sodium 144 mmol/L (136-145); Total Bilirubin 0.2 mg/dL (0.15-1.2); Total Protein 7.9 g/dL (6.6-8.7)
[2024-03-12 14:02] LABS: Add Urine Microscopic? YES; Bilirubin Urine Neg (Negative); Blood Urine 2+ (Negative); Glucose Urine UA Norm (Normal); Ketones Urine Negative (Negative); Leukocyte Esterase Urine 2+ (Negative); Nitrate Urine Positive (Negative); Protein Urine Trace (Negative); Urine Appearance Hazy (CLEAR); Urine Color Yellow (Yellow); Urobilinogen Urine Neg (Negative); pH Urine 6 (5-7)
[2024-03-12 14:03] LABS: Add Urine Culture? Yes; Bacteria Urine 3+ /hpf; Squamous Epithelial Cell Urine 0-4 /hpf (0-5); WBC Urine >100 /hpf (0-5)
== END 2024-03-12 14:29 | disposition home or self-care (01) ==
PROVIDERS: Emergency Provider Family Medicine; PCP Family Medicine
DX: N39.0 Urinary tract infection, site not specified (principal); R60.0 Localized edema; Z79.82 Long term (current) use of aspirin; F17.210 Nicotine dependence, cigarettes, uncomplicated; J44.9 Chronic obstructive pulmonary disease, unspecified; I25.2 Old myocardial infarction; E78.5 Hyperlipidemia, unspecified; I10 Essential (primary) hypertension; I25.10 Atherosclerotic heart disease of native coronary artery without angina pectoris; I08.3 Combined rheumatic disorders of mitral, aortic and tricuspid valves; R60.9 Edema, unspecified; Z98.61 Coronary angioplasty status; I67.9 Cerebrovascular disease, unspecified
CPT/HCPCS: 71045; 80053; 81001; 83880; 85025; 87077; 87086; 87186; 93005; 93306; 93970; 96374; 99285; J1940

== ENCOUNTER 2024-04-17 10:07 | Emergency (ER) | payer MEDICARE, MEDICAID, SELFPAY ==
[2024-04-17 10:06] VITALS: BP 147/100; PULSE 117; RESP 22; O2SAT 98; BMI 33.9
--- NOTE | 2024-04-17 10:10 | XR_ITS ---
WS: [id number] Portable AP upright chest, 04/17/2024 Clinical Data: dyspnea/cough Comparison: Portable chest, 03/12/2024 Findings: No nodules, masses or effusions are seen. The heart is enlarged. The pulmonary vascularity is not increased. No pneumonia or pneumothorax is seen. There is a right cardiophrenic fat pad or cys t. The right basilar atelectasis is partly cleared. XR/XR chest 1V portable [id number] Impression: 1. Cardiomegaly. 2. Partial clearing of right basilar atelectasis.
--- NOTE | 2024-04-17 10:11 | ECG_ITS ---
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 Measurements Intervals [place] Rate: 110 P: 53 [place]: 157 QRS: 59 QRSD: 93 T: 68 QT: 339 QTc: 460 Interpretive Statements Significant baseline artifcat SINUS TACHYCARDIA ABNORMAL RHYTHM ECG Compared to ECG 03/12/2024 12:49:07 Heart rate is fast Electronically Signed On 04-17-2024 10:59:19 CDT by Rodri Richards M.D. [id number]
--- NOTE | 2024-04-17 10:11 | W.ED.SOB ---
HPI - SOB/Dyspnea General: Chief Complaint: Shortness of Breath/Dyspnea Stated Complaint: respiratory distress Time Seen by Provider: 04/17/24 10:10 Source: patient Mode of arrival: ambulatory History of Present Illness: HPI Narrative: Six 8-year-old male presents to the emergency room complaining of difficulty breathing came in as a reported respiratory distress. On arrival here he is not requiring oxygen but he is reporting significant shortness of breath and worsening orthopnea he denies fever sweats chills. He has worsening cough occasional mild chest discomfort. MD elicited complaint: shortness of breath Pertinent past history: COPD and congestive heart failure Severity: mild Exacerbating factors: lying flat, exertion and coughing Relieving factors: rest and bronchodilators Known history of: COPD Associated symptoms: Reports chest pain, cough and nausea; Deny abdominal pain, chest congestion, diaphoresis, dizziness, extremity pain, fever(s), hemoptysis, lightheadedness, myalgias, orthopnea, palpitations, paresthesias, polydipsia, polyuria, rash, sense of impending doom, syncope or vomiting Treatment prior to arrival: oxygen and bronchodilator Review of Systems Const: Denies: fever(s), chills or diaphoresis Card: Reports: chest pain; Denies: palpitations, lightheadedness, syncope or orthopnea Resp: Reports: dyspnea and wheezing; Denies: hemoptysis or chest congestion GI: Reports: nausea; Denies: abdominal pain or vomiting : Denies: flank pain, dysuria, urinary frequency or urinary urgency Musc: Denies: neck pain, back pain or extremity pain Skin/Breast: Denies: rash Neuro: Denies: dizziness Endo: Denies: polyuria or polydipsia PFSH ED PFSH: Medical History COPD (chronic obstructive pulmonary disease) Sleep apnea GERD (gastroesophageal reflux disease) History of myocardial infarction Hyperlipidemia Essential hypertension CAD (coronary artery disease) 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 Cervical radiculitis Osteoarthritis hip and bilateral knees Surgical History H/O circumcision Presence of stent in left circumflex coronary artery S/P cholecystectomy S/P knee surgery right knee at age 21 Family History Mother Family history of premature coronary artery disease Sister Cancer Nasal Denies family history of Anesthesia complication Bleeding disorder Social History Smoking and tobacco/nicotine status: current every day tobacco/nicotine user cigarettes Packs smoked per day: 1.5 [ Other cigarette details: DOWN FROM 2.5 PPD] Alcohol intake: current Alcohol intake frequency: few times a week Substance/Drug Use: never Lives independently: Yes Marital status: Single Current occupational status: disabled Physical Exam Const: GENERAL APPEARANCE: cooperative and comfortable ORIENTATION/CONSCIOUSNESS: Yes awake, Yes oriented to person, Yes oriented to place and Yes oriented to time HENMT: COMMON NORMALS: normocephalic, atraumatic and hearing grossly normal bilaterally HEAD & SCALP: normocephalic and atraumatic Resp: EFFORT & INSPECTION: Yes tachypneic and Yes respiratory distress AUSCULTATION: rhonchi and wheezes Cardio: COMMON NORMALS: regular rate, regular rhythm and No murmurs present (Cardio) RATE: regular rate RHYTHM: regular rhythm GI: COMMON NORMALS: Soft to palpation and No hepatosplenomegaly present AUSCULTATION: Yes normoactive bowel sounds PALPATION: Yes Soft to palpation, No Tenderness to palpation present (GI), No Guarding due to palpation present (GI) and Yes No hepatosplenomegaly present Extremity: COMMON NORMALS: normal to inspection, capillary refill normal, no clubbing, cyanosis or edema, no calf tenderness and no pedal edema Neuro: SENSORIUM/ORIENTATION: Yes oriented to person, Yes oriented to place and Yes oriented to time Skin: COMMON NORMALS: no rashes or lesions noted GENERAL SKIN EXAM: no rashes or lesions noted Course Vital Signs: Vital signs: Vital Signs Temperature 96.2 F L 04/17/24 10:36 Pulse Rate 117 H 04/17/24 10:06 Respiratory Rate 22 H 04/17/24 10:06 Blood Pressure 135/68 04/17/24 11:47 Pulse Oximetry 93 04/17/24 11:47 Oxygen Delivery Me thod Room Air 04/17/24 11:47 MDM - SOB/Dyspnea Medical Decision Making Patient is septic at this time and should be admitted with IV antibiotics and cultures. He has metabolic acidosis with lactate of 5.2. Patient is refusing admission. I tried to convince him to stay he declines. We did give him a prescription for Levaquin and warned him that I am concerned that this may not be adequate. He happily refuses stay he states his feet gets worse he will come back discussed with him that he could worsen significantly enough that it would even potentially put his life at risk he expresses understanding of this and still wishes to go home I advised him he can return at any time would be happy to reevaluate and treat Medical Records I reviewed the patient's medical records. Lab Data I reviewed the patient's lab results. 04/17/24 09:42 04/17/24 09:42 Labs/Radiology: Radiology Impressions Chest X-Ray 04/17/24 10:10 Impression: 1. Cardiomegaly. 2. Partial clearing of right basilar atelectasis. Laboratory Results WBC 10.38 10^3/uL (3.29-11.43) 04/17/24 09:42 RBC 4.64 10^6/uL (3.85-5.65) 04/17/24 09:42 Hgb 14.40 g/dL (11.27-16.99) 04/17/24 09:42 Hct 45.5 % (37-53) 04/17/24 09:42 MCV 98.1 fl (82-101) 04/17/24 09:42 MCH 31.0 pg (27-33) 04/17/24 09:42 MCHC 31.6 g/dL (30-55) 04/17/24 09:42 RDW 16.0 % (12.1-15.1) H 04/17/24 09:42 Plt Count 237 10^3/cmm (157-399) 04/17/24 09:42 MPV 10.6 fL (7.4-10.4) H 04/17/24 09:42 Neut % (Auto) 68.7 % 04/17/24 09:42 Lymph % (Auto) 20.3 % 04/17/24 09:42 [place] % (Auto) 8.4 % 04/17/24 09:42 Eos % (Auto) 1.3 % 04/17/24 09:42 Baso % (Auto) 0.3 % 04/17/24 09:42 Neut # (Auto) 7.14 10^3/uL (1.8-7.7) 04/17/24 09:42 Lymph # (Auto) 2.1 10^3/uL (0.8-4.8) 04/17/24 09:42 [place] # (Auto) 0.9 10^3/uL (0.2-0.9) 04/17/24 09:42 Eos # (Auto) 0.1 10^3/uL (0.0-0.8) 04/17/24 09:42 Baso # (Auto) 0.0 10^3/uL (0.0-0.1) 04/17/24 09:42 Nucleated RBC % (auto) 0 % 04/17/24 09:42 Nucleated RBCs # 0.0 /100WBC 04/17/24 09:42 Specimen Type Arterial 04/17/24 10:17 Sample Site Brachial, right 04/17/24 10:17 ABG pH 7.35 (7.35-7.45) 04/17/24 10:17 ABG pCO2 38.7 mmHg (35-45) 04/17/24 10:17 ABG pO2 65.6 mmHg (80.0-100.0) L 04/17/24 10:17 ABG PO2/FiO2 Ratio 0 04/17/24 10:17 ABG HCO3 21.5 mmol/L (22-26) L 04/17/24 10:17 ABG O2 Saturation 89.5 04/17/24 10:17 ABG Base Excess -3.7 mmol/L (-2.0-2.0) L 04/17/24 10:17 Luan Test N/a 04/17/24 10:17 A-a O2 Gradient 4.5 mmHg (5-10) L 04/17/24 10:17 Hematocrit 44.8 % (42-52) 04/17/24 10:17 Hgb O2 Saturation 88.0 % (95-100) L 04/17/24 10:17 Carboxyhemoglobin 0.8 %THgb (0.4-20.1) 04/17/24 10:17 Methemoglobin 0.9 % (0.4-1.5) 04/17/24 10:17 Total Hemoglobin 14.6 g/dL (14-18) 04/17/24 10:17 Sodium 145.0 mmol/L (131-143) H 04/17/24 10:17 Potassium 4.3 mmol/L (3.5-5.0) 04/17/24 10:17 Glucose 159.0 mg/dL (70-115) H 04/17/24 10:17 Ionized Calcium 1.3 mmol/L (1.1-1.4) 04/17/24 10:17 O2 Delivery Device Room air 04/17/24 10:17 FiO2 21.0 % 04/17/24 10:17 Cold Roll Operator ID Amh 04/17/24 10:17 Sodium 140 mmol/L (136-145) 04/17/24 09:42 Potassium 4.4 mmol/L (3.5-5.1) 04/17/24 09:42 Chloride 100 mmol/L (98-107) 04/17/24 09:42 Carbon Dioxide 21 mmol/L (22-29) L 04/17/24 09:42 Anion Gap 23.4 (5-19) H 04/17/24 09:42 BUN 22 mg/dL (8-23) 04/17/24 09:42 Creatinine 1.2 mg/dL (0.7-1.2) 04/17/24 09:42 GFR Calculation 60.4 mL/min (90-130) L 04/17/24 09:42 Glucose 179 mg/dL (65-115) H 04/17/24 09:42 Calculated Osmolality 298 mOsm/kg (285-295) H 04/17/24 09:42 Lactic Acid 5.4 mmol/L (0.5-2.2) H* 04/17/24 09:42 Calcium 9.8 mg/dL (8.5-10.5) 04/17/24 09:42 Total Bilirubin 0.2 mg/dL (0.15-1.2) 04/17/24 09:42 AST 12 U/L (0-40) 04/17/24 09:42 ALT 8 U/L (0-41) 04/17/24 09:42 Alkaline Phosphatase 104 U/L (40-130) 04/17/24 09:42 Troponin T Baseline 22 ng/L (0-15) H 04/17/24 09:42 NT-Pro-B Natriuret Pep 1311 pg/mL (0-125) H 04/17/24 09:42 Total Protein 8.1 g/dL (6.6-8.7) 04/17/24 09:42 Albumin 4.1 g/dL (3.5-5.2) 04/17/24 09:42 Globulin 4.0 g/dL (1.3-4.6) 04/17/24 09:42 All radiology interpretation(s) finalized by discharge Discharge Plan Discharge Patient Disposition: Left Against Medical Advice Clinical Impression: Sepsis, CHF (congestive heart failure), Metabolic acidosis, Cellulitis and abscess of leg Condition: Stable Prescriptions: New levofloxacin 750 mg tablet 750 mg PO DAILY 7 Days Qty: 7 0RF No Action tizanidine 4 mg tablet 4 mg PO TID PRN (Reason: muscle spasticity) Qty: 90 0RF (DME) [place] See Rx Instructions .Route .MEDSUPPLY Qty: 1 0RF Rx Instructions: As directed (DME) Hinge Knee Brace See Rx Instructions .Route .MEDSUPPLY Qty: 1 0RF Rx Instructions: As directed rosuvastatin [Crestor] 20 mg Tablet 20 mg PO QAM nitroglycerin [Nitrostat] 0.4 mg Tablet, Sublingual 0.4 mg SUBLINGUAL Q5M PRN (Reason: Chest Pain) Rx Instructions: do not exceed 3 doses per episode hydrocodone-acetaminophen 10-325 mg tablet 1 tab PO Q4H MDD 4 tabs PRN (Reason: Pain) tramadol 50 mg tablet 50 - 100 mg PO Q46H PRN (Reason: Pain) furosemide [Lasix] 40 mg tablet 40 mg PO QAM Qty: 10 0RF lisinopril 20 mg tablet 20 mg PO DAILY gabapentin 300 mg capsule 300 mg PO BID meloxicam 15 mg tablet 15 mg PO DAILY bupropion HCl 300 mg tablet extended release 24 hr 300 mg PO DAILY omeprazole 40 mg capsule,delayed release(DR/EC) 40 mg PO DAILY PRN (Reason: Acid Reflux) potassium chloride 8 mEq tablet extended release 8 meq PO BID Discharge Orders: Discharge ED (Routine); Ordered 04/17/24 Ordered By: Rajan Fletcher Referrals: Alfonso Jacques MD [Primary Care Provider] - Discharge Diet: Usual diet Discharge Activity: Limit activity as instructed Patient Instructions: Opioid Safety, Pain Management Activity Restrictions/Additional Instructions: Thank you for choosing [facility] for your healthcare needs today. Please realize this is an emergency room and that we are providing you with a medical screening exam and this may not be complete and all inclusive of all the testing and or work up that you may need to determine your ailment or severity of your illness. It is very important that you follow up as instructed or that you return to the Emergency Department should you have concerns or if your condition changes or worsens in any way. Your evaluated in the emergency room for difficulty breathing. Your evaluation in the emergency room showed signs of sepsis as well as congestive heart failure and was concerning for cellulitis. We recommended hospitalization for these problems. At this point you are septic and have metabolic acidosis both of these are serious medical conditions and if progressed could lead to significant worsening of your symptoms and/or . Oral antibiotics are not likely to be adequate for this. You are welcome to return at any time if you wish. Coding Level of Care Code ED Extrusion Die Repair Manager for Caitlin Black
[2024-04-17 10:20] LABS: Basophils % 0.3 %; Eosinophils # 0.1 10^3/uL (0.0-0.8); Eosinophils % 1.3 %; Hematocrit 45.5 % (37-53); Lymphocytes # 2.1 10^3/uL (0.8-4.8); Lymphocytes % 20.3 %; Mean Corpuscular HGB Conc 31.6 g/dL (30-55); Mean Corpuscular Volume 98.1 fl (82-101); Mean Platelet Volume 10.6 fL (7.4-10.4); Monocytes # 0.9 10^3/uL (0.2-0.9); Monocytes % 8.4 %; Neutrophils # 7.14 10^3/uL (1.8-7.7); Neutrophils % 68.7 %; Nucleated Red Blood Cells % 0 %; Platelet Count 237 10^3/cmm (157-399); Red Blood Count 4.64 10^6/uL (3.85-5.65); White Blood Count 10.38 10^3/uL (3.29-11.43)
[2024-04-17 10:29] LABS: ABG PCO2 38.7 mmHg (35-45); ABG PH Result 7.35 (7.35-7.45); Alveolar-Arterial Oxygen Gradi 4.5 mmHg (5-10); Arterial Blood Gas Hematocrit 44.8 % (42-52); Base Excess ABG -3.7 mmol/L (-2.0-2.0); Blood Gas Operator Identificat AMH; Blood Gas Sample Site Brachial, right; Blood Gas Sample Type Arterial; Carboxyhemoglobin 0.8 %THgb (0.4-20.1); HCO3 ABG 21.5 mmol/L (22-26); Ionized Calcium Level - ABG 1.3 mmol/L (1.1-1.4); Methemoglobin 0.9 % (0.4-1.5); Oxygen Device ROOM AIR; Oxygen Saturation ABG 89.5; PO2 ABG 65.6 mmHg (80.0-100.0); PO2 FiO2 Ratio Arterial Blood 0; Potassium Level - ABG 4.3 mmol/L (3.5-5.0); Total Hemoglobin 14.6 g/dL (14-18)
[2024-04-17 10:36] VITALS: TEMP 35.7
[2024-04-17 10:40] LABS: Lactic Sepsis W/Reflex 5.4 mmol/L (0.5-2.2); Troponin(5th) Baseline 22 ng/L (0-15)
[2024-04-17 10:44] VITALS: BP 148/80; O2SAT 94
[2024-04-17 10:49] LABS: Alanine Aminotransferase 8 U/L (0-41); Albumin Level 4.1 g/dL (3.5-5.2); Alkaline Phosphatase 104 U/L (40-130); Anion Gap 23.4 (5-19); Aspartate Amino Transferase 12 U/L (0-40); Blood Urea Nitrogen 22 mg/dL (8-23); Calcium 9.8 mg/dL (8.5-10.5); Carbon Dioxide 21 mmol/L (22-29); Chloride 100 mmol/L (98-107); Creatinine Clr Calc Pharmacy 77.6632; Glomerular Filtration Rate 60.4 mL/min (90-130); Glucose 179 mg/dL (65-115); NT Pro B Type Natriuretic Pept 1311 pg/mL (0-125); Osmolality Calculated 298 mOsm/kg (285-295); Potassium 4.4 mmol/L (3.5-5.1); Sodium 140 mmol/L (136-145); Total Bilirubin 0.2 mg/dL (0.15-1.2); Total Protein 8.1 g/dL (6.6-8.7)
--- NOTE | 2024-04-17 11:06 | PC.PHAR ---
[facility] DOES NOT HAVE NEW RX FOR POTASSIUM 10MEQ. HAS RX BOTTLE FROM [facility] FOR POTASSIUM 8 MEQ TWICE DAILY. PT ALSO HAS BOTTLE FOR CLARITHROMYCIN 500 MG TWICE DAILY FROM 09/25/22 ([facility]).
[2024-04-17] MEDS: piperacillin-tazobactam 3.375 GM in sodium chloride 0.9% (plus) 50 ML IV (11:18)
[2024-04-17] MEDS: vancomycin 1,000 MG in sodium chloride 0.9% 250 ML 250 MG IV (11:38)
[2024-04-17 11:47] VITALS: BP 135/68; O2SAT 93
[2024-04-17 12:05] LABS: Reflex Lactate Order REFLEX LACTIC ORDERD
== END 2024-04-17 12:18 | disposition left against medical advice (07) ==
PROVIDERS: Emergency Provider Family Medicine; PCP Family Medicine
DX: I11.0 Hypertensive heart disease with heart failure (principal); I50.9 Heart failure, unspecified; A41.9 Sepsis, unspecified organism; E87.20 Acidosis, unspecified; L03.119 Cellulitis of unspecified part of limb; F17.210 Nicotine dependence, cigarettes, uncomplicated
CPT/HCPCS: 36600; 71045; 80051; 80053; 82330; 82805; 83605; 83880; 84484; 85025; 87040; 93005; 96365; 99285; J2543; J3370; J7050

== ENCOUNTER 2024-10-15 16:58 | Emergency (ER) | payer MEDICARE, MEDICAID, SELFPAY ==
[2024-10-15] VITALS (8 sets, daily range): BP systolic 113–165; BP diastolic 63–120; PULSE 94–116; RESP 16–17; TEMP 36.7; O2SAT 92–97; BMI 32.5
--- NOTE | 2024-10-15 17:07 | XRR_ITS ---
PROCEDURE INFORMATION: Exam: XR Chest Exam date and time: 10/15/2024 5:19 PM Age: 69 years old Clinical indication: Cough TECHNIQUE: Imaging protocol: Radiologic exam of the chest. Views: 1 view. COMPARISON: CR XR chest 1V portable [id number] 04/17/2024 10:33 AM FINDINGS: Lungs: Low lung volumes. No focal airspace disease. Pleural spaces: Unremarkable. No pleural effusion. No pneumothorax. Heart/Mediastinum: Stable mild cardiomegaly. Bones/joints: Unremarkable. XR/XR chest 1V portable [id number] IMPRESSION: Cardiomegaly without evidence of failure.
--- NOTE | 2024-10-15 17:07 | XRR_ITS ---
PROCEDURE INFORMATION: Exam: XR Lumbosacral Spine Exam date and time: 10/15/2024 5:19 PM Age: 69 years old Clinical indication: Pain and injury or trauma; Fall; Blunt trauma (contusions or hematomas); Low back pain; Additional info: Fall pain TECHNIQUE: Imaging protocol: Radiologic exam of the lumbosacral spine. Views: 2 or 3 views. COMPARISON: CR XR lumbar spine min 4V [id number] 04/25/2021 2:45 PM FINDINGS: Limitations: Suboptimal image quality due to patient body habitus. Bones/joints: Limited assessment of the spine demonstrates no definite acute fracture. Vertebral body heights appear to be maintained. Slight grade 1 anterolisthesis of L4 on L5. Soft tissues: Unremarkable. Organs: Cholecystectomy clips partially imaged. Vasculature: Fusiform infrarenal abdominal aortic aneurysm. XR/XR lumbar spine 2-3V* [id number] IMPRESSION: 1. Limited assessment of the lumbar spine. No definite acute osseous findings. If clinical concern persists, CT lumbar spine could be considered further evaluation. 2. Redemonstrated fusiform infrarenal abdominal aortic aneurysm, incompletely assessed. Consider follow-up nonemergent aortic ultrasound or CT abdomen/pelvis for further evaluation.
--- NOTE | 2024-10-15 17:09 | W.ED.FALL ---
HPI - Fall General: Chief Complaint: Back Pain/Injury Stated Complaint: fall Time Seen by Provider: 10/15/24 17:03 History of Present Illness: Patient presents via EMS secondary to a fall. EMS stated patient was in between the bed in a chair. Patient lives home alone. Patient was mildly confused when I got there with O2 sats mildly low per them. They placed on 3 L per nasal cannula sat increased up to the 90s. Patient's only complaints currently is back and stomach. He says they both hurt. Patient normally does not wear oxygen but does continue to smoke. Related Data Home Medications Medication Instructions Recorded Confirmed rosuvastatin 20 mg tablet (Crestor) 20 mg PO QAM 01/17/23 04/17/24 hydrocodone 10 mg-acetaminophen 1 tab PO Q4H PRN Pain 06/15/23 04/17/24 325 mg tablet nitroglycerin 0.4 mg sublingual 0.4 mg sublingual Q5M PRN Chest 06/15/23 04/17/24 tablet (Nitrostat) Pain tramadol 50 mg tablet 50 - 100 mg PO Q46H PRN Pain 06/15/23 04/17/24 gabapentin 300 mg capsule 300 mg PO BID 03/12/24 04/17/24 lisinopril 20 mg tablet 20 mg PO DAILY 03/12/24 04/17/24 bupropion HCl 300 mg 24 hr tablet, 300 mg PO DAILY 04/17/24 04/17/24 extended release meloxicam 15 mg tablet 15 mg PO DAILY 04/17/24 04/17/24 omeprazole 40 mg capsule,delayed 40 mg PO DAILY PRN Acid Reflux 04/17/24 04/17/24 release potassium chloride 8 mEq 8 meq PO BID 04/17/24 04/17/24 tablet,extended release Previous Rx's Medication Instructions Recorded tizanidine 4 mg tablet 4 mg PO TID PRN muscle spasticity 07/05/21 #90 tabs Joseline #1 ea 02/27/23 Hinge Knee Brace #1 ea 05/29/23 furosemide 40 mg tablet (Lasix) 40 mg PO QAM #10 tabs 03/12/24 Allergies Allergy/AdvReac Type Severity Reaction Status Date / Time No Known Allergies Allergy Verified 02/27/24 09:21 Review of Systems General: Reports: 10 or more systems reviewed and unremarkable except in HPI and below PFSH ED PFSH: Medical History COPD (chronic obstructive pulmonary disease) Sleep apnea GERD (gastroesophageal reflux disease) History of myocardial infarction Hyperlipidemia Essential hypertension CAD (coronary artery disease) 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 Cervical radiculitis Osteoarthritis hip and bilateral knees Surgical History H/O circumcision Presence of stent in left circumflex coronary artery S/P cholecystectomy S/P knee surgery right knee at age 21 Family History Mother Family history of premature coronary artery disease Sister Cancer Nasal Denies family history of Anesthesia complication Bleeding disorder Social History Smoking and tobacco/nicotine status: current every day tobacco/nicotine user cigarettes Packs smoked per day: 1.5 [ Other cigarette details: DOWN FROM 2.5 PPD] Alcohol intake: current Alcohol intake frequency: few times a week Substance/Drug Use: never Lives independently: Yes Marital status: Single Current occupational status: disabled Physical Exam Const: COMMON NORMALS: no acute distress, average body habitus, patient oriented x3, no limitations, healthy appearing, alert and well nourished HENMT: COMMON NORMALS: normocephalic, atraumatic, hearing grossly normal bilaterally, external ears normal, Normal external nose present and moist oral mucous membranes HEAD & SCALP: normocephalic and atraumatic NOSE: Normal external nose present EXTERNAL EAR: Yes external ears normal Neck/C-Spine: COMMON NORMALS: no JVD Chest: COMMONS NORMALS: normal inspection of the chest and normal palpation of entire chest wall Resp: COMMON NORMALS: normal respiratory effort, No retractions, No use of accessory muscles and clear to auscultation bilaterally AUSCULTATION: clear to auscultation bilaterally Cardio: COMMON NORMALS: no JVD, regular rate, regular rhythm, S1 normal heart sound present, S2 normal heart sound present, No gallops present (Cardio), No clicks present (Cardio), No murmurs present (Cardio) and No rub (Cardio) RATE: regular rate RHYTHM: regular rhythm HEART SOUNDS: S1 normal heart sound present and S2 normal heart sound present GI: COMMON NORMALS: Normal to inspection, nondistended, normoactive bowel sounds present, Soft to palpation, non-tender, No hepatosplenomegaly present and no masses PALPATION: Yes Soft to palpation and Yes No hepatosplenomegaly present Neuro: COMMON NORMALS: patient oriented x3 SENSORIUM/ORIENTATION: Yes alert Course Vital Signs: Vital signs: Vital Signs Temperature 98.1 F 10/15/24 17:01 Pulse Rate 99 10/15/24 20:07 Respiratory Rate 16 10/15/24 17:32 Blood Pressure 165/120 10/15/24 20:07 Pulse Oximetry 92 10/15/24 20:07 Oxygen Delivery Me thod Room Air 10/15/24 19:00 Oxygen Flow Rate 3 10/15/24 18:15 MDM - Fall Medical Decision Making patient lab work was unremarkable other than a potassium of 3.1, chest x-ray showed cardiomegaly without evidence failure, lumbar spine x-ray was negative for acute fracture. Medical Records I reviewed the patient's medical records. Lab Data I reviewed the patient's lab results. 10/15/24 18:11 10/15/24 18:11 Radiology Impressions Chest X-Ray 10/15/24 17:07 IMPRESSION: Cardiomegaly without evidence of failure. Lumbar Spine X-Ray 10/15/24 17:07 IMPRESSION: 1. Limited assessment of the lumbar spine. No definite acute osseous findings. If clinical concern persists, CT lumbar spine could be considered further evaluation. 2. Redemonstrated fusiform infrarenal abdominal aortic aneurysm, incompletely assessed. Consider follow-up nonemergent aortic ultrasound or CT abdomen/pelvis for further evaluation. Laboratory Results WBC 8.96 10^3/uL (3.29-11.43) 10/15/24 18:11 RBC 4.87 10^6/uL (3.85-5.65) 10/15/24 18:11 Hgb 13.60 g/dL (11.27-16.99) 10/15/24 18:11 Hct 45.0 % (37-53) 10/15/24 18:11 MCV 92.4 fl (82-101) 10/15/24 18:11 MCH 27.9 pg (27-33) 10/15/24 18:11 MCHC 30.2 g/dL (30-55) 10/15/24 18:11 RDW 19.1 % (12.1-15.1) H 10/15/24 18:11 Plt Count 383 10^3/cmm (157-399) 10/15/24 18:11 MPV 9.9 fL (7.4-10.4) 10/15/24 18:11 Neut % (Auto) 74.9 % 10/15/24 18:11 Lymph % (Auto) 13.8 % 10/15/24 18:11 [place] % (Auto) 7.9 % 10/15/24 18:11 Eos % (Auto) 1.6 % 10/15/24 18:11 Baso % (Auto) 0.9 % 10/15/24 18:11 Neut # (Auto) 6.71 10^3/uL (1.8-7.7) 10/15/24 18:11 Lymph # (Auto) 1.2 10^3/uL (0.8-4.8) 10/15/24 18:11 [place] # (Auto) 0.7 10^3/uL (0.2-0.9) 10/15/24 18:11 Eos # (Auto) 0.1 10^3/uL (0.0-0.8) 10/15/24 18:11 Baso # (Auto) 0.1 10^3/uL (0.0-0.1) 10/15/24 18:11 Nucleated RBC % (auto) 0 % 10/15/24 18:11 Nucleated RBCs # 0.0 /100WBC 10/15/24 18:11 Sodium 146 mmol/L (136-145) H 10/15/24 18:11 Potassium 3.1 mmol/L (3.5-5.1) L 10/15/24 18:11 Chloride 103 mmol/L (98-107) 10/15/24 18:11 Carbon Dioxide 28 mmol/L (22-29) 10/15/24 18:11 Anion Gap 18.1 (5-19) 10/15/24 18:11 BUN 12 mg/dL (8-23) 10/15/24 18:11 Creatinine 1.0 mg/dL (0.7-1.2) 10/15/24 18:11 GFR Calculation 74.3 mL/min (90-130) L 10/15/24 18:11 Glucose 224 mg/dL (65-115) H 10/15/24 18:11 Calculated Osmolality 309 mOsm/kg (285-295) H 10/15/24 18:11 Calcium 8.6 mg/dL (8.5-10.5) 10/15/24 18:11 Total Bilirubin 0.2 mg/dL (0.15-1.2) 10/15/24 18:11 AST 18 U/L (0-40) 10/15/24 18:11 ALT 11 U/L (0-41) 10/15/24 18:11 Alkaline Phosphatase 99 U/L (40-130) 10/15/24 18:11 NT-Pro-B Natriuret Pep 1905 pg/mL (0-125) H 10/15/24 18:11 Total Protein 6.9 g/dL (6.6-8.7) 10/15/24 18:11 Albumin 3.7 g/dL (3.5-5.2) 10/15/24 18:11 Globulin 3.2 g/dL (1.3-4.6) 10/15/24 18:11 Lipase 22 U/L (13-60) 10/15/24 18:11 Urine Color Yellow (Yellow) 10/15/24 19:06 Urine Appearance Clear (CLEAR) 10/15/24 19:06 Urine pH 7.0 (5-7) 10/15/24 19:06 Ur Specific [place] 1.013 (1.005-1.030) 10/15/24 19:06 Urine Protein 1+ (Negative) A 10/15/24 19:06 Urine Glucose (UA) Negative (Normal) 10/15/24 19:06 Urine Ketones Negative (Negative) 10/15/24 19:06 Urine Blood Non-haemolysed trace (Negative) 10/15/24 19: Urine Nitrate Negative (Negative) 10/15/24 19:06 Urine Bilirubin Negative (Negative) 10/15/24 19:06 Urine Urobilinogen 1.0 mg/dL (Negative) 10/15/24 19:06 Ur Leukocyte Esterase Negative (Negative) 10/15/24 19:06 Urine RBC 0-2 /hpf (0-2) 10/15/24 19:06 Urine WBC 0-5 /hpf (0-5) 10/15/24 19:06 Ur Squamous Epith Cells 0-5 /hpf (0-5) 10/15/24 19:06 Amorphous Sediment Not Reportable 10/15/24 19:06 Urine Bacteria None seen /hpf (NONE) 10/15/24 19:06 Hyaline Casts 5.36 /lpf 10/15/24 19:06 All radiology interpretation(s) finalized by discharge Discharge Plan Discharge Patient Disposition: Home Clinical Impression: Fall Qualifiers: Encounter type: initial encounter Qualified Code(s): W19.XXXA - Unspecified fall, initial encounter Low back pain Qualifiers: Chronicity: acute Back pain laterality: midline Sciatica presence: without sciatica Qualified Code(s): M54.50 - Low back pain, unspecified Condition: Stable Prescriptions: No Action tizanidine 4 mg tablet 4 mg PO TID PRN (Reason: muscle spasticity) Qty: 90 0RF (DME) Joseline See Rx Instructions .Route .MEDSUPPLY Qty: 1 0RF Rx Instructions: As directed (DME) Hinge Knee Brace See Rx Instructions .Route .MEDSUPPLY Qty: 1 0RF Rx Instructions: As directed rosuvastatin [Crestor] 20 mg Tablet 20 mg PO QAM nitroglycerin [Nitrostat] 0.4 mg Tablet, Sublingual 0.4 mg SUBLINGUAL Q5M PRN (Reason: Chest Pain) Rx Instructions: do not exceed 3 doses per episode hydrocodone-acetaminophen 10-325 mg tablet 1 tab PO Q4H MDD 4 tabs PRN (Reason: Pain) tramadol 50 mg tablet 50 - 100 mg PO Q46H PRN (Reason: Pain) furosemide [Lasix] 40 mg tablet 40 mg PO QAM Qty: 10 0RF lisinopril 20 mg tablet 20 mg PO DAILY gabapentin 300 mg capsule 300 mg PO BID meloxicam 15 mg tablet 15 mg PO DAILY bupropion HCl 300 mg tablet extended release 24 hr 300 mg PO DAILY omeprazole 40 mg capsule,delayed release(DR/EC) 40 mg PO DAILY PRN (Reason: Acid Reflux) potassium chloride 8 mEq tablet extended release 8 meq PO BID Discharge Orders: Discharge ED (Routine); Ordered 10/15/24 Ordered By: Clovis Willis Referrals: Alfonso Jacques MD [Primary Care Provider] - 1 week Patient Instructions: Acute Low Back Pain (ED) Activity Restrictions/Additional Instructions: Thank you for choosing [facility] for your healthcare needs today. Please realize that you were seen in the emergency department and that we are providing you with an emergency medical screening exam and this may not be a complete and all exclusive of all testing and/or medical workup we may need to determine your element or severity of your illness. It is very important that you follow-up as instructed with your primary care provider or specialist for the additional evaluation and to discuss your medical treatment plan. You may return to the emergency department should you have concerns or if your condition changes or worsens in any way. Coding Level of Care Code ED [employer] for Caitlin Black
[2024-10-15] MEDS: ipratropium-albuterol 3 mL Neb INHALATION (17:31)
[2024-10-15 18:16] LABS: Basophils # 0.1 10^3/uL (0.0-0.1); Basophils % 0.9 %; Eosinophils # 0.1 10^3/uL (0.0-0.8); Eosinophils % 1.6 %; Lymphocytes # 1.2 10^3/uL (0.8-4.8); Lymphocytes % 13.8 %; Mean Corpuscular HGB Conc 30.2 g/dL (30-55); Mean Corpuscular Hemoglobin 27.9 pg (27-33); Mean Corpuscular Volume 92.4 fl (82-101); Mean Platelet Volume 9.9 fL (7.4-10.4); Monocytes # 0.7 10^3/uL (0.2-0.9); Monocytes % 7.9 %; Neutrophils # 6.71 10^3/uL (1.8-7.7); Neutrophils % 74.9 %; Nucleated Red Blood Cells % 0 %; Platelet Count 383 10^3/cmm (157-399); Red Blood Count 4.87 10^6/uL (3.85-5.65); Red Cell Distribution Width 19.1 % (12.1-15.1); White Blood Count 8.96 10^3/uL (3.29-11.43)
--- NOTE | 2024-10-15 18:23 | PC.NURSE ---
PT FAMILY NOTIFIED THIS NURSE THAT PT DOES NOT TYPICALLY WEAR OXYGEN AT HOME. NOTIFIED.
[2024-10-15 18:43] LABS: Alanine Aminotransferase 11 U/L (0-41); Albumin Level 3.7 g/dL (3.5-5.2); Alkaline Phosphatase 99 U/L (40-130); Anion Gap 18.1 (5-19); Aspartate Amino Transferase 18 U/L (0-40); Blood Urea Nitrogen 12 mg/dL (8-23); Calcium 8.6 mg/dL (8.5-10.5); Carbon Dioxide 28 mmol/L (22-29); Chloride 103 mmol/L (98-107); Creatinine Clr Calc Pharmacy 90.1048; Globulin 3.2 g/dL (1.3-4.6); Glomerular Filtration Rate 74.3 mL/min (90-130); Glucose 224 mg/dL (65-115); Lipase 22 U/L (13-60); NT Pro B Type Natriuretic Pept 1905 pg/mL (0-125); Osmolality Calculated 309 mOsm/kg (285-295); Potassium 3.1 mmol/L (3.5-5.1); Sodium 146 mmol/L (136-145); Total Bilirubin 0.2 mg/dL (0.15-1.2); Total Protein 6.9 g/dL (6.6-8.7)
[2024-10-15] MEDS: potassium chloride ER 20 mEq Tablet 40 MEQ PO (19:04)
[2024-10-15 19:17] LABS: Bilirubin Urine Negative (Negative); Blood Urine Non-haemolysed trace (Negative); Glucose Urine UA Negative (Normal); Ketones Urine Negative (Negative); Leukocyte Esterase Urine Negative (Negative); Nitrate Urine Negative (Negative); Protein Urine 1+ (Negative); Specific Gravity, Urine 1.013 (1.005-1.030); Urine Appearance Clear (CLEAR); Urine Color Yellow (Yellow)
[2024-10-15 19:19] LABS: Add Urine Microscopic? YES; Bacteria Urine None Seen /hpf; Hyaline Casts Urine 5.36 /lpf; RBC Urine 0-2 /hpf (0-2); Squamous Epithelial Cell Urine 0-5 /hpf (0-5); WBC Urine 0-5 /hpf (0-5)
== END 2024-10-15 19:47 | disposition home or self-care (01) ==
PROVIDERS: Emergency Provider Emergency Medicine; PCP Family Medicine
DX: M54.50 Low back pain, unspecified (principal); W19.XXXA Unspecified fall, initial encounter; J44.9 Chronic obstructive pulmonary disease, unspecified; I25.10 Atherosclerotic heart disease of native coronary artery without angina pectoris
CPT/HCPCS: 71045; 72100; 80053; 81001; 83690; 83880; 85025; 94640; 99284